=== PATIENT | male | born 1950 | race Caucasian/White ===

== ENCOUNTER → 2016-11-12 | Outpatient (CLI) | payer OTHER ==
[2016-11-12 14:39] LABS: HEMATOCRIT 43.5 % (42-52)
[2016-11-12 15:19] LABS: ALT/SGPT 37 U/L (12-78); AST/SGOT 9 U/L (15-37); BLOOD UREA NITROGEN 11 mg/dl (7-18); BUN/CREATININE RATIO 13.5 (10-20); CALCIUM 8.9 mg/dl (8.5-10.1); CARBON DIOXIDE 25 mmol/L (21-32); CHLORIDE 103 mmol/L (98-107); GLUCOSE 287 mg/dl (70-99); POTASSIUM 4.1 mmol/L (3.5-5.1); SODIUM 138 mmol/L (136-145)
[2016-11-12 15:30] LABS: ALB/GLOB RATIO 1.1 (0.9-2); ALKALINE PHOSPHATASE 80 U/L (45-117); CHOLESTEROL 136 mg/dl (0-200); CHOLESTEROL/HDL RATIO 4.7; HDL CHOLESTEROL 29 mg/dl; LDL CHOLESTEROL CALCULATED 83 mg/dl; TRIGLYCERIDES 120 mg/dl (0-150); VERY LOW DENSITY LIPOPROT CALC 24 mg/dl
[2016-11-13 06:34] LABS: ESTIMATED AVERAGE GLUCOSE 258 mg/dl; HA1C FLAG Normal (Normal)
== END | disposition home or self-care (01) ==
LOC: C.LAB1850 12:49
PROVIDERS: ATTEND Nurse Practitioner Family
DX: E11.49 Type 2 diabetes mellitus with other diabetic neurological complication (principal)

== ENCOUNTER → 2016-11-15 | Outpatient (CLI) | payer OTHER | END | disposition home or self-care (01) | LOC: C.LABSPEC 11:00 | PROVIDERS: ATTEND Nurse Practitioner Family | DX: E11.49 Type 2 diabetes mellitus with other diabetic neurological complication (principal) ==

== ENCOUNTER → 2017-07-11 | Outpatient (CLI) | payer OTHER ==
[2017-07-11 14:27] LABS: HEMATOCRIT 46.5 % (42-52); MEAN CELL VOLUME 89.6 fL (80-100); MEAN CORPUSCULAR HEMOGLOBIN 31.6 pg (25-34); MEAN CORPUSCULAR HGB CONC 35.3 g/dl (32-36); PLATELET COUNT 263 K/uL (130-400); RED BLOOD COUNT 5.19 M/uL (4.7-6.1); WHITE BLOOD COUNT 9.36 K/uL (4.8-10.8)
[2017-07-11 15:30] LABS: BASO ABS # 0.08 K/uL (0-0.2); BASOPHIL % 0.9 % (0-2); ECHINOCYTES 2+; EOSINOPHIL % 3.6 %; LYMPHOCYTE % 32.1 %; NEUTROPHILS % 29.5 %; OVALOCYTES 1+; VARIANT LYM ABS # 2.42 K/uL; VARIANT LYMPHOCYTE % 25.9 %
[2017-07-11 15:32] LABS: COMPLETE YES
== END | disposition home or self-care (01) ==
LOC: C.LAB1850 12:37
PROVIDERS: ATTEND Psychiatry & Neurology Psychiatry
DX: F20.9 Schizophrenia, unspecified (principal); D64.9 Anemia, unspecified

== ENCOUNTER 2019-06-02 12:30 | Observation (INO) ==
[2019-06-02] MEDS ORDERED: SODIUM CHLORIDE 0.9% 500 ML IV ONE (13:18)
[2019-06-02 13:38] LABS: Basophils # (auto) 0.01 K/uL (0-0.2); Basophils % (auto) 0.2 %; Eosinophils # (auto) 0.08 K/uL (0-0.5); Eosinophils % (auto) 1.6 %; Hemoglobin 12.8 g/dL (14.0-18.0); Immature Granulocytes # (auto) 0.02 K/uL (0.00-0.02); Immature Granulocytes % (auto) 0.4 %; Lymphocytes # (auto) 1.57 K/uL (1.2-3.4); Mean Corpuscular Hemoglobin 31.4 pg (25-34); Mean Corpuscular Hgb Conc 34.6 g/dL (32-36); Mean Corpuscular Volume 90.7 fL (80-100); Mean Platelet Volume 8.8 fL (7.4-10.4); Monocytes # (auto) 0.47 K/uL (0.11-0.59); Monocytes % (auto) 9.3 %; Neutrophils # (auto) 2.91 K/uL (1.4-6.5); Neutrophils % (auto) 57.5 %; Platelet Count 229 K/uL (130-400); RDW Standard Deviation 42.9 fL (36.4-46.3); Red Blood Count 4.08 M/uL (4.7-6.1); White Blood Count 5.06 K/uL (4.8-10.8)
--- NOTE | 2019-06-02 13:40 | XRay Report ---
XR chest 1V portable HISTORY: 69 years-old Male Chest Pain acute atypical chest pain COMPARISON: None available TECHNIQUE: Portable AP view of the chest FINDINGS: Cardiomediastinal and hilar silhouettes are within normal limits. Mild interstitial coarsening is mos t pronounced within the mid to lower lung zones. No pneumothorax, large pleural effusion or overt pul monary edema. Degenerative changes of the shoulders and spine. IMPRESSION: 1. Mild interstitial coarsening, most pronounced in the mid to lower lung zones. This may be on a chr onic basis or reflect interstitial pneumonitis or mild pulmonary edema. Correlate clinically. The above report was generated using voice recognition software. It may contain grammatical, syntax o r spelling errors. Electronically signed by: Geovany Brooks M.D. 06/02/2019 1:39 PM
[2019-06-02 13:56] LABS: Alanine Aminotransferase 11 U/L (12-78); Albumin Level 3.3 gm/dl (3.4-5.0); Aspartate Aminotransferase 8 U/L (15-37); BUN Creatinine Ratio 12.2 (10-20); Blood Urea Nitrogen 9 mg/dl (7-18); Carbon Dioxide 23 mmol/L (21-32); Chloride 99 mmol/L (98-107); Creatinine Clr Calc Pharmacy 92.7 ml/min; Est GFR (African American) 105.8; Est GFR (Non-African American) 91.3; Glucose 109 mg/dl (70-99); Lipase 104 U/L (73-393); Magnesium 1.7 mg/dl (1.8-2.4); Sodium 133 mmol/L (136-145)
[2019-06-02 13:58] LABS: Acetaminophen 3 ug/ml (10-30); Salicylate < 1.7 mg/dl (2.8-20); Valproic Acid 95 mcg/ml (50-100)
[2019-06-02 14:01] LABS: Alkaline Phosphatase 57 U/L (45-117); Bilirubin,Total 0.2 mg/dl (0.2-1); Globulin 3.4 gm/dl (2.5-4.0); Phosphorus 3.3 mg/dl (2.5-4.9); Total Protein 6.7 gm/dl (6.4-8.2); Troponin I < 0.015 ng/ml (0-0.045)
[2019-06-02] MEDS ORDERED: MAGNESIUM SULFATE / D5W 1 GM/100 ML BAG IV ONE (14:01)
[2019-06-02 14:08] LABS: INR 1.1 (0.9-1.1); Prothrombin Time 10.8 Seconds (9.0-12.0)
--- NOTE | 2019-06-02 14:37 | CT Scan Report ---
CT head/brain wo con CLINICAL HISTORY: Bilateral lower extremity weakness COMPARISON STUDY: No previous studies for comparison. TECHNIQUE: Axial CT of the brain is performed from the vertex to the skull base. IV contrast was not administered for this examination. A dose lowering technique was utilized adhering to the principles of ALARA. CT DOSE: 1074.96 mGy.cm FINDINGS: No intra or extra-axial mass lesions are visualized. There is no CT evidence of acute cortical infarc tion. There is no evidence of midline shift. There is no acute hemorrhage. No calvarial fractures ar e visualized. There are minor white matter hypodensities likely on a small vessel basis. There is mild ventricular dilatation, likely secondary to volume loss. There is no evidence of acute sinusitis IMPRESSION: No acute intracranial findings Electronically signed by: Juan Mantilla M.D. 06/02/2019 2:36 PM
[2019-06-02] MEDS ORDERED: SODIUM CHLORIDE 0.9% 1000ML 1,000 ML IV ONE (14:40)
--- NOTE | 2019-06-02 16:09 | History & Physical Report ---
Date of Service June 02, 2019 Assessment & Plan (1) Medication overdose: admit med surg Monitor electrolytes - magnesium replaced in ED overdosed by taking 2x his medications to relieve headache/neck ache - no longer experiencing this pain. (2) Lactic acidosis: Lactic acid 4.2 Gentle IV fluids - CXR with mild pulm edema vs pneumonitis, will monitor Hold metformin (3) Bipolar I disorder, single manic episode: Continue divalproex, olanzapine, paroxetine (4) Schizophrenia: as above (5) Diabetes mellitus type 2, uncontrolled, without complications: Hold metformine, continue glipizide (6) HTN (hypertension): continue lisinopril, ASA (7) DVT prophylaxis: SCDs History of Present Illness Mr. Wolfe presents today for medication overdose. He has been having neck and head pain for the last two or three weeks and for the last week decided to double all of his medications to treat it. A home health nurse came to see him today and discovered he was short a number of packets of medications. He is currently feeling well, without complaint. He reports that the neck and head pain that was bothering him is not currently causing him any pain. He denies any nausea, vomiting, aches, chills, or fevers. He does note that he feels like he has to urinate frequently. 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 Family: DMII, heart disease Primary Care Provider: Roly Mariscal MD Allergies Allergy/AdvReac Type Severity Reaction Status Date / Time No Known Drug Allergies Allergy Verified 06/02/19 13:43 Home Medications Home Medications Medication Instructions Recorded Confirmed Type albuterol sulfate 90 mcg/actuation 2 puffs INH Q6H PRN 04/01/19 06/02/19 History aerosol inhaler aspirin 81 mg tablet,delayed 81 mg PO QAM #90 tab 04/01/19 06/02/19 History release blood sugar diagnostic #10 ea 04/01/19 05/08/19 History cholecalciferol (vitamin D3) 1,000 1,000 units PO QAM #90 cap 04/01/19 06/02/19 History unit capsule cyanocobalamin (vitamin B-12) 1,000 mcg PO QAM #30 tab 04/01/19 06/02/19 History 1,000 mcg tablet divalproex 250 mg tablet,extended 250 mg PO BID tab 04/01/19 06/02/19 History release 24 hr divalproex 500 mg tablet,extended 500 mg PO BID tab 04/01/19 06/02/19 History release 24 hr fluticasone 250 mcg-salmeterol 50 1 puffs INH Q12H 04/01/19 06/02/19 History mcg/dose blistr powdr for inhalation lancets 33 gauge #100 ea 04/01/19 05/08/19 History lisinopril 5 mg tablet 5 mg PO QAM #30 tab 04/01/19 06/02/19 History metformin 1,000 mg tablet 1,000 mg PO BID #1 tab 04/01/19 06/02/19 History olanzapine 10 mg tablet 10 mg PO QAM tab 04/01/19 06/02/19 History olanzapine 15 mg tablet 15 mg PO HS tab 04/01/19 06/02/19 History paroxetine HCl 10 mg tablet 10 mg PO QAM tab 04/01/19 06/02/19 History vitamin B complex 1 tab PO QAM 04/01/19 06/02/19 History glipizide 5 mg tablet 5 mg PO BID #180 tab 04/06/19 06/02/19 History Past Med/Surg History Social History Preferred Language: Sami Communication Ability: Effective Visual Impairment: No Limitations Hearing Ability: Normal marital status: current occupational status: retired Feels Safe at Home: Yes Smoking Status: Never smoker Hx Alcohol Use: No Hx Substance Use: No Seatbelt Use: always Physical Exam Physical Exam: General: no distress Eyes: normal inspection, PERLL Neck: supple Respiratory: chest non tender, clear to auscultation, normal breath sounds, no respiratory distress, no accessory muscle use Cardiac: regular rate and rhythm, no rub or gallop, no murmur, no edema, no jvd GI/: active bowel sounds, no abd pain or tenderness, soft, non distended Extremities: normal range of motion, normal strength, non tender Neuro:oriented x 3, moves all extremities, CN II - XII intact, no drift Psych: alert, normal mood and affect Skin: normal color, dry Results & Data Vital Signs (Past 12 Hours) Vital Signs Temp Pulse Pulse Resp BP BP Pulse Ox 06/02/19 16:01 89 22 175/93 H 92 06/02/19 14:11 91 H 18 141/83 H 92 06/02/19 12:46 37.1 C 106 H 20 142/86 H 92 Supervising Physician Co-Signing Physician Notes I supervised Elba Barroso NP on this patient's care. I examined the patient today independently of her. I discussed the plan of care with her with the plan being as written in her note except for any following changes/exceptions: None. 69yo w/ hx of schizophrenia who took extra pills to help with pain. He reports no pain at this time and no shortness of breath. Reports his legs feel heavy at times and feels there might be fluid in them. Otherwise has no complaints. Reports no fevers/chills, chest pain, shortness of breath, abdominal pain, nausea, or vomiting. - Hold metformin - Gentle IV fluids - Monitor PG Care Time/CCT Total # of Minutes Spent Total Time Spent with Patient: Total time spent is greater than 50% in coordination of care (as documented) at patient's floor/unit and/or counseling patient:
[2019-06-02] MEDS ORDERED: SODIUM CHLORIDE 0.9% 1000ML 1,000 ML IV SCH (17:17)
[2019-06-02] MEDS ORDERED: ALBUTEROL HFA 8 GM INHALER INH PRN (17:46)
[2019-06-02] MEDS ORDERED: GLUCOSE 40% GEL 15 GM TUBE PO PRN (18:19)
[2019-06-02] MEDS ORDERED: CARBOHYDRATES FOR HYPOGLYCEMIA PO PRN (18:19)
[2019-06-02] MEDS ORDERED: GLUCAGON FOR INJ 1 MG VIAL SQ PRN (18:19)
[2019-06-02] MEDS ORDERED: GLUCOSE 10 TABS/TUBE PO PRN (18:19)
[2019-06-02] MEDS ORDERED: DEXTROSE 50% 50 ML SYRINGE IV PRN (18:19)
[2019-06-02] MEDS: INSULIN ASPART 100 UNITS/ML 3 ML PEN SC SCH (20:53)
[2019-06-02] MEDS: OLANZapine 5 MG TABLET PO SCH (20:55)
[2019-06-02] MEDS: FLUTICASONE/SALMETEROL 250/50 (ADVAIR) 14 PUFF/1 INHALER INH SCH (20:55)
[2019-06-02] MEDS: DIVALPROEX EXTENDED RELEASE 500 MG TAB PO SCH (20:56)
[2019-06-02] MEDS: DIVALPROEX EXTENDED RELEASE 250 MG TABCR PO SCH (20:56)
--- NOTE | 2019-06-02 22:04 | Emergency Department Note ---
Entered by Mera Sandoval acting as a scribe for Luis Fernando Dunn MD History of Present Illness General Chief complaint: Overdose (Intentional) Time Seen by Provider: 06/02/19 13:17 Source: patient History of Present Illness Onset (ago): week(s) 3 Location: head Pain Consistency: + other (episode) Quality: + other (overdose) Associated symptoms: + denies other symptoms (neck pain), + weakness and + other (feeling uncoordinated); no headaches The patient is a 69 year old male who presents to the Emergency Room with complaints of an episode of an overdose stating 3 weeks ago. The patient states that for 3 weeks he had a stinging pain in his head and neck. He states that he couldnt get rid of it so he took extra of all of his medications to see if it would help. He notes that he no longer has the pain, but has leg weakness and feels uncoordinated. He reports that he took extra of his psychiatric medications, including his Depakote, and his diabetic medications. He states that he only has one dose left. Home Medications Home Medications Medication Instructions Recorded Confirmed Type albuterol sulfate 90 mcg/actuation 2 puffs INH Q6H PRN 04/01/19 06/02/19 History aerosol inhaler aspirin 81 mg tablet,delayed 81 mg PO QAM #90 tab 04/01/19 06/02/19 History release blood sugar diagnostic #10 ea 04/01/19 05/08/19 History cholecalciferol (vitamin D3) 1,000 1,000 units PO QAM #90 cap 04/01/19 06/02/19 History unit capsule cyanocobalamin (vitamin B-12) 1,000 mcg PO QAM #30 tab 04/01/19 06/02/19 History 1,000 mcg tablet divalproex 250 mg tablet,extended 250 mg PO BID tab 04/01/19 06/02/19 History release 24 hr divalproex 500 mg tablet,extended 500 mg PO BID tab 04/01/19 06/02/19 History release 24 hr fluticasone 250 mcg-salmeterol 50 1 puffs INH Q12H 04/01/19 06/02/19 History mcg/dose blistr powdr for inhalation lancets 33 gauge #100 ea 04/01/19 05/08/19 History lisinopril 5 mg tablet 5 mg PO QAM #30 tab 04/01/19 06/02/19 History metformin 1,000 mg tablet 1,000 mg PO BID #1 tab 04/01/19 06/02/19 History olanzapine 10 mg tablet 10 mg PO QAM tab 04/01/19 06/02/19 History olanzapine 15 mg tablet 15 mg PO HS tab 04/01/19 06/02/19 History paroxetine HCl 10 mg tablet 10 mg PO QAM tab 04/01/19 06/02/19 History vitamin B complex 1 tab PO QAM 04/01/19 06/02/19 History glipizide 5 mg tablet 5 mg PO BID #180 tab 04/06/19 06/02/19 History Allergies Allergy/AdvReac Type Severity Reaction Status Date / Time No Known Drug Allergies Allergy Verified 06/02/19 13:43 Past Med/Surg History Medical History Bipolar I disorder, single manic episode Diabetes mellitus type 2, uncontrolled, without complications Dyslipidemia HTN (hypertension) Schizophrenia Surgical History S/P tonsillectomy and adenoidectomy Family History Mother Lung cancer Social History Preferred Language: Cameroonian Communication Ability: Effective Visual Impairment: No Limitations Hearing Ability: Normal Beliefs That Will Affect Care: None marital status: Current Living Situation: Alone current occupational status: retired Other Information That Helps Us Care for You: No Feels Safe at Home: Yes Safety Concerns: Feels Safe At This Time Smoking Status: Never smoker Hx Alcohol Use: No Hx Substance Use: No Seatbelt Use: always Review of Systems See HPI for pertinent positives & negatives. and A total of 10 systems reviewed and were otherwise negative Physical Exam Vital Signs Vital Signs - 24 hr 06/02/19 12:46 06/02/19 14:11 06/02/19 16:01 Temperature 37.1 C Temperature Source Oral Pulse Rate 106 H Pulse Rate [Left Finger] 91 H 89 Respiratory Rate 20 18 22 Respiratory Effort / Characteristics Non-Labored Spontaneous Blood Pressure 142/86 H Blood Pressure [Left Arm] 141/83 H 175/93 H Blood Pressure Mean 104 Blood Pressure Mean [Left Arm] 102 120 Blood Pressure Position [Left Arm] Lying Pulse Oximetry 92 92 92 Oxygen Delivery Method Room Air Room Air Sepsis Recent Fever Within 48 Hours No Sepsis New/Unexplained Change in Mental Status No Sepsis Action Taken by Nursing No Action Required GENERAL: Awake, alert, pleasantly confused, well-appearing, in no distress HENT: Normocephalic, atraumatic. Oropharynx with dry mucous membranes and otherwise unremarkable. EYES: Normal conjunctiva. Sclera non-icteric. EOMI. No nystamgus. PEARRL. NECK: Supple. No nuchal rigidity. FROM. No JVD. RESPIRATORY: Clear to auscultation bilaterally. CARDIAC: Regular rate, normal rhythm. Extremities warm and well perfused. Pulses equal. ABDOMEN: Soft, non-distended. No tenderness to palpation. No rebound or guarding. No masses. RECTAL: Deferred. MUSCULOSKELETAL: Chest examination reveals no tenderness. The back is symmetrical on inspection without obvious abnormality. There is no CVA tenderness to palpation. No joint edema. LOWER EXTREMITIES: Calves are equal size bilaterally and non-tender. No edema. No discoloration. NEURO: Pleasantly confused. No sensory or motor deficits noted. Cerebellar function intact, including finger to nose, alternating palms, heel to dale. 5/5 strength and SILT x4 extremities. Normal reflexes. No clonus. SKIN: No rash or jaundice noted. Course Course 1356: The patient was evaluated in room A11A. A complete history and physical exam was performed. 1446: The patient has pre-packaged blister packs to manage his medications. He gets his medications every 2 weeks for 2 weeks, so one a week. He has been taking double doses of his medications for the past 10 days for his headache. His visiting nurse noticed that he had went through an entire week's pack early in the past 10 days, in addition to being approximately 2 rows early on his other pack. 1506: I reevaluated the patient and updated him on his test results. I discussed the treatment plan with him. He verbally agrees and understands. 1508: I discussed the patient's case with Dr. Pope- [facility]. He will evaluate the patient for further management. Administered Medications Divalproex Sodium (Depakote Extended Release) 250 mg PO BID BOGDAN Stop: 07/02/19 20:59 Last Admin: 06/02/19 20:56 Dose: 250 mg Documented by: [id number] Divalproex Sodium (Depakote Extended Release) 500 mg PO BID BOGDAN Stop: 07/02/19 20:59 Last Admin: 06/02/19 20:56 Dose: 500 mg Documented by: [id number] Sodium Chloride (Nss 1000ml) 1,000 mls @ 80 mls/hr IV .[id number] BOGDAN Stop: 06/03/19 05:46 Last Admin: 06/02/19 18:05 Dose: 80 mls/hr Documented by: [id number] Insulin Aspart (Novolog Flexpen) 0 units SC ACHS BOGDAN Stop: 07/02/19 20:59 Last Admin: 06/02/19 20:53 Dose: 1 units Documented by: [id number] Cosigned by: [id number] Olanzapine (Zyprexa) 15 mg PO HS BOGDAN Stop: 07/02/19 20:59 Last Admin: 06/02/19 20:55 Dose: 15 mg Documented by: [id number] Fluticasone/Salmeterol (Advair Diskus 250/50) 1 puffs INH Q12H BOGDAN Stop: 07/02/19 20:59 Last Admin: 06/02/19 20:55 Dose: 1 puffs Documented by: [id number] Discontinued Medications Sodium Chloride (Nss) 500 mls @ 999 mls/hr IV .Q31M ONE Stop: 06/02/19 13:48 Last Infusion: 06/02/19 14:39 Dose: 0 mls/hr Documented by: [id number] Admin: 06/02/19 14:09 Dose: 999 mls/hr Documented by: [id number] Magnesium Sulfate/Dextrose (Magnesium Sulfate / D5w) 1 gm in 100 mls @ 100 mls/hr IV ONE ONE Stop: 06/02/19 15:00 Last Infusion: 06/02/19 15:43 Dose: 0 mls/hr Documented by: [id number] Admin: 06/02/19 14:37 Dose: 100 mls/hr Documented by: [id number] Sodium Chloride (Nss 1000ml) 1,000 mls @ 999 mls/hr IV .Q1H1M ONE Stop: 06/02/19 15:40 Last Infusion: 06/02/19 16:01 Dose: 0 mls/hr Documented by: [id number] Admin: 06/02/19 14:47 Dose: 999 mls/hr Documented by: [id number] Impression & Plan Elevated lactic acid level, Overdose, Dehydration, Schizophrenia Medical Decision Making Differential Diagnosis Differential diagnosis: Etiologies such as toxicological process, infection, hypoglycemia, electrolyte abnormalities, cardiac sources, intracerebral event, neurologic process, as well as others were entertained. Medical Records Attestation: I reviewed the patient's medical records. Home Medications Current Medication List: was personally reviewed by me Laboratory Data Attestation: I reviewed the patient's lab results. Result diagrams: 06/02/19 13:29 06/02/19 13:29 Lab Results 06/02/19 06/02/19 06/02/19 Range/Units 13:29 13:29 13:29 WBC 5.06 (4.8-10.8) K/uL RBC 4.08 L (4.7-6.1) M/uL Hgb 12.8 L (14.0-18.0) g/dL Hct 37.0 L (42-52) % MCV 90.7 (80-100) fL MCH 31.4 (25-34) pg MCHC 34.6 (32-36) g/dL RDW Std Deviation 42.9 (36.4-46.3) fL RDW Coeff of Gabbi 13.0 (11.5-14.5) % Plt Count 229 (130-400) K/uL MPV 8.8 (7.4-10.4) fL Immature Gran % (Auto) 0.4 % Neut % (Auto) 57.5 % Lymph % (Auto) 31.0 % Sevier % (Auto) 9.3 % Eos % (Auto) 1.6 % Baso % (Auto) 0.2 % Immature Gran # (Auto) 0.02 (0.00-0.02) K/uL Neut # (Auto) 2.91 (1.4-6.5) K/uL Lymph # (Auto) 1.57 (1.2-3.4) K/uL Sevier # (Auto) 0.47 (0.11-0.59) K/uL Eos # (Auto) 0.08 (0-0.5) K/uL Baso # (Auto) 0.01 (0-0.2) K/uL PT (9.0-12.0) Seconds INR (0.9-1.1) Sodium 133 L (136-145) mmol/L Potassium 4.0 (3.5-5.1) mmol/L Chloride 99 (98-107) mmol/L Carbon Dioxide 23 (21-32) mmol/L Anion Gap 11.0 (3-11) BUN 9 (7-18) mg/dl Creatinine 0.77 (0.6-1.4) mg/dl Est Cr Clr Drug Dosing 92.7 ml/min Est GFR ( Amer) 105.8 Est GFR (Non-Af Amer) 91.3 BUN/Creatinine Ratio 12.2 (10-20) Glucose 109 H (70-99) mg/dl Lactate (0.4-2.0) mmol/L Calcium 9.0 (8.5-10.1) mg/dl Phosphorus 3.3 (2.5-4.9) mg/dl Magnesium 1.7 L (1.8-2.4) mg/dl Total Bilirubin 0.2 (0.2-1) mg/dl AST 8 L (15-37) U/L ALT 11 L (12-78) U/L Alkaline Phosphatase 57 (45-117) U/L Troponin I < 0.015 (0-0.045) ng/ml Total Protein 6.7 (6.4-8.2) gm/dl Albumin 3.3 L (3.4-5.0) gm/dl Globulin 3.4 (2.5-4.0) gm/dl Albumin/Globulin Ratio 1.0 (0.9-2) Lipase 104 (73-393) U/L Salicylates < 1.7 L (2.8-20) mg/dl Acetaminophen 3 L (10-30) ug/ml Valproic Acid 95 (50-100) mcg/ml 06/02/19 06/02/19 Range/Units 13:29 13:29 WBC (4.8-10.8) K/uL RBC (4.7-6.1) M/uL Hgb (14.0-18.0) g/dL Hct (42-52) % MCV (80-100) fL MCH (25-34) pg MCHC (32-36) g/dL RDW Std Deviation (36.4-46.3) fL RDW Coeff of Gabbi (11.5-14.5) % Plt Count (130-400) K/uL MPV (7.4-10.4) fL Immature Gran % (Auto) % Neut % (Auto) % Lymph % (Auto) % Sevier % (Auto) % Eos % (Auto) % Baso % (Auto) % Immature Gran # (Auto) (0.00-0.02) K/uL Neut # (Auto) (1.4-6.5) K/uL Lymph # (Auto) (1.2-3.4) K/uL Sevier # (Auto) (0.11-0.59) K/uL Eos # (Auto) (0-0.5) K/uL Baso # (Auto) (0-0.2) K/uL PT 10.8 (9.0-12.0) Seconds INR 1.1 (0.9-1.1) Sodium (136-145) mmol/L Potassium (3.5-5.1) mmol/L Chloride (98-107) mmol/L Carbon Dioxide (21-32) mmol/L Anion Gap (3-11) BUN (7-18) mg/dl Creatinine (0.6-1.4) mg/dl Est Cr Clr Drug Dosing ml/min Est GFR ( Amer) Est GFR (Non-Af Amer) BUN/Creatinine Ratio (10-20) Glucose (70-99) mg/dl Lactate 4.2 H* (0.4-2.0) mmol/L Calcium (8.5-10.1) mg/dl Phosphorus (2.5-4.9) mg/dl Magnesium (1.8-2.4) mg/dl Total Bilirubin (0.2-1) mg/dl AST (15-37) U/L ALT (12-78) U/L Alkaline Phosphatase (45-117) U/L Troponin I (0-0.045) ng/ml Total Protein (6.4-8.2) gm/dl Albumin (3.4-5.0) gm/dl Globulin (2.5-4.0) gm/dl Albumin/Globulin Ratio (0.9-2) Lipase (73-393) U/L Salicylates (2.8-20) mg/dl Acetaminophen (10-30) ug/ml Valproic Acid (50-100) mcg/ml Imaging Data Radiologist's Impression: Radiology results as stated below per my review and the radiologist's interpretation: XR chest 1V portable HISTORY: 69 years-old Male Chest Pain acute atypical chest pain COMPARISON: None available TECHNIQUE: Portable AP view of the chest FINDINGS: Cardiomediastinal and hilar silhouettes are within normal limits. Mild interstitial coarsening is most pronounced within the mid to lower lung zones. No pneumothorax, large pleural effusion or overt pulmonary edema. Degenerative changes of the shoulders and spine. IMPRESSION: 1. Mild interstitial coarsening, most pronounced in the mid to lower lung zones. This may be on a chronic basis or reflect interstitial pneumonitis or mild pulmonary edema. Correlate clinically. The above report was generated using voice recognition software. It may contain grammatical, syntax or spelling errors. Electronically signed by: Geovany Brooks M.D. 06/02/2019 1:[address] head/brain wo con CLINICAL HISTORY: Bilateral lower extremity weakness COMPARISON STUDY: No previous studies for comparison. TECHNIQUE: Axial CT of the brain is performed from the vertex to the skull base. IV contrast was not administered for this examination. A dose lowering technique was utilized adhering to the principles of ALARA. CT DOSE: 1074.96 mGy.cm FINDINGS: No intra or extra-axial mass lesions are visualized. There is no CT evidence of acute cortical infarction. There is no evidence of midline shift. There is no acute hemorrhage. No calvarial fractures are visualized. There are minor white matter hypodensities likely on a small vessel basis. There is mild ventricular dilatation, likely secondary to volume loss. There is no evidence of acute sinusitis IMPRESSION: No acute intracranial findings Electronically signed by: Juan Mantilla M.D. 06/02/2019 2:36 PM ECG Data Attestation: I personally reviewed and interpreted this ECG as follows: Indication: + toxicologic Rate (beats per minute): 98 Rhythm: + normal sinus ECG Intervals/blocks: + Left anterior fascicular block ECG ST segments: no ST elevation ECG Findings: + Other (QRS 120, QT-c 459); no PACs and no PVCs Comparison ECG Date: no prior available Blood Pressure Blood Pressure Findings: Elevated blood pressure Blood Pressure Disposition: further management by hospitalist [facility] Narrative The patient is a pleasant 69-year-old gentleman with a past medical history of schizophrenia who presents emergency department after home nursing became concerned realizing the patient had been intentionally taking extra doses of his prescribed medications where he completed over an entire week's worth of blister packs one week early where the patient reports he did this to treat a headache which he says is now resolved per HPI. The patient has poor insight into how these his medications work and is under the impression that he was going to get better by taking extra metformin in addition to his other medications. On arrival patient is in no acute distress, afebrile stable vital signs. He is neurologically intact. He does complain of generalized weakness however. EKG with LAFB without overt acute ischemia, without prior for comparison. Chest x- ray negative for acute process. CT head negative. WBC and platelets wnl. H/H 12.8/37 without recent for comparison but decrased from September. Lactate elevated at 4.2 likely related to the patient's excessive metformin use over the past 10 days. However, Chemistry without acidosis. Magnesium 1.7 with repletion provided. LFTs and electrolytes unremarkable. Troponin negative. Thus, reasonable to admit the patient for IV fluid hydration and further monitoring. Patient is agreeable with this plan. Case was discussed with Dr. Pope, [facility] [place], who evaluate the patient for admission. Discharge Plan Visit Data *Final* Discharge Date/Time: 06/02/19 16:35 Chief Complaint: Overdose (Intentional) ED Provider: Luis Fernando Dunn Discharge Problem: Elevated lactic acid level, Overdose, Dehydration, Schizophrenia Patient Disposition: Being Evaluated by Hospitalist Discharge Instructions Interventions: ED Discharge Assessment Last Done: 06/02/19 16:35 Discharge Problem: Overdose Qualifiers: Encounter type: initial encounter Injury intent: undetermined intent Qualified Code(s): T50.904A - Poisoning by unspecified drugs, medicaments and biological substances, undetermined, initial encounter The scribe's documentation has been prepared under my direction and personally reviewed by me in its entirety. I confirm that the note above accurately reflects all work, treatment, procedures, and medical decision making performed by me.
[2019-06-03] MEDS: FLUTICASONE/SALMETEROL 250/50 (ADVAIR) 14 PUFF/1 INHALER INH SCH ×2 (07:53→20:46)
[2019-06-03] MEDS: OLANZapine 10 MG TAB PO SCH (07:54)
[2019-06-03] MEDS: PARoxetine HCl 10 MG TAB PO SCH (07:54)
[2019-06-03] MEDS: glipiZIDE 5 MG TAB PO SCH ×2 (07:54→17:36)
[2019-06-03] MEDS: ASPIRIN 81 MG ECTAB PO SCH (07:54)
[2019-06-03] MEDS: VITAMIN B COMPLEX TAB PO SCH (07:54)
[2019-06-03] MEDS: LISINOPRIL 5 MG TAB PO SCH (07:54)
[2019-06-03] MEDS: DIVALPROEX EXTENDED RELEASE 500 MG TAB PO SCH ×2 (07:54→20:47)
[2019-06-03] MEDS: CYANOCOBALAMIN 500 MCG TABLET (VITAMIN B-12) PO SCH (07:54)
[2019-06-03] MEDS: DIVALPROEX EXTENDED RELEASE 250 MG TABCR PO SCH ×2 (07:54→20:47)
[2019-06-03] MEDS: CHOLECALCIFEROL 1,000 UNITS TAB PO SCH (07:54)
[2019-06-03] MEDS: INSULIN ASPART 100 UNITS/ML 3 ML PEN SC SCH ×4 (08:16→20:47)
[2019-06-03 08:50] LABS: Basophils # (auto) 0.01 K/uL (0-0.2); Basophils % (auto) 0.2 %; Eosinophils # (auto) 0.09 K/uL (0-0.5); Eosinophils % (auto) 1.4 %; Hematocrit (blood only) 39.1 % (42-52); Hemoglobin 13.4 g/dL (14.0-18.0); Immature Granulocytes # (auto) 0.02 K/uL (0.00-0.02); Immature Granulocytes % (auto) 0.3 %; Lymphocytes # (auto) 1.81 K/uL (1.2-3.4); Mean Corpuscular Hemoglobin 31.4 pg (25-34); Mean Corpuscular Hgb Conc 34.3 g/dL (32-36); Mean Corpuscular Volume 91.6 fL (80-100); Monocytes # (auto) 0.55 K/uL (0.11-0.59); Monocytes % (auto) 8.8 %; Neutrophils # (auto) 3.77 K/uL (1.4-6.5); Neutrophils % (auto) 60.3 %; Platelet Count 233 K/uL (130-400); RDW Coefficient of Variation 13.3 % (11.5-14.5); RDW Standard Deviation 44.1 fL (36.4-46.3); Red Blood Count 4.27 M/uL (4.7-6.1); White Blood Count 6.25 K/uL (4.8-10.8)
[2019-06-03 09:22] LABS: Albumin Level 3.5 gm/dl (3.4-5.0); BUN Creatinine Ratio 10.1 (10-20); Calcium 9.1 mg/dl (8.5-10.1); Creatinine Clr Calc Pharmacy 104.5 ml/min; Est GFR (Non-African American) 96.7
[2019-06-03 09:24] LABS: Albumin Globulin Ratio 0.9 (0.9-2); Bilirubin,Total 0.2 mg/dl (0.2-1); Globulin 3.8 gm/dl (2.5-4.0); Total Protein 7.3 gm/dl (6.4-8.2)
--- NOTE | 2019-06-03 11:48 | XRay Report ---
XR cervical spine 2 or 3V CLINICAL HISTORY: neck pain COMPARISON STUDY: None. FINDINGS: Straightening of the cervical spine. The cervical spine is visualized from C1 through the s uperior endplate of T1. Alignment is intact. Mild disc space narrowing at C4-C5 and C5-C6. Moderate f acet degenerative changes throughout the cervical spine. Prevertebral soft tissues and the C1-C2 inte rval are intact. No fracture or subluxation. IMPRESSION: No fractures within the cervical spine. Degenerative changes as described above. Electronically signed by: Yakov Mcgraw M.D. 06/03/2019 11:47 AM
[2019-06-03] MEDS: ACETAMINOPHEN 500 MG TAB PO SCH ×2 (15:29→23:03)
[2019-06-03] MEDS: LIDOCAINE 5% 1 PATCH TD SCH (15:30)
--- NOTE | 2019-06-03 15:56 | Hospitalist Progress Note ---
Date of Service June 03, 2019 Assessment & Plan (1) Medication overdose: admit med surg Monitor electrolytes - magnesium replaced in ED overdosed by taking 2x his medications to relieve headache/neck ache - pain is better and intermittent - will prescribe acetaminophen and lidoderm patch (2) Neck pain: Cervical film with no acute fracture - degenerative changes Pain medication as above (3) Lactic acidosis: Lactic acid 4.2 and trended down Gentle IV fluids x1 liter - CXR with mild pulm edema vs pneumonitis, will monitor Hold metformin (4) Bipolar I disorder, single manic episode: Continue divalproex, olanzapine, paroxetine (5) Schizophrenia: as above (6) Diabetes mellitus type 2, uncontrolled, without complications: Hold metformine, continue glipizide, ss (7) HTN (hypertension): continue lisinopril, ASA (8) DVT prophylaxis: SCDs Dispo: PT/OT with patient at baseline - will set up HH and plan for dc tomorrow. Subjective Mr. Jameson has intermittent right neck pain that is better today than over the last couple of days. ROS Constitutional: no chills, aches, sweats or fever Respiratory: no sob,cough, sputum, or wheezing Cardiac: no chest pain, palpitations, edema, orthopnea or lightheadedness GI: no abdominal pain, nausea, vomiting, diarrhea or constipation : no dysuria or hesitancy Extremities: no joint pain or weakness Skin: no rash All other systems reviewed and negative Physical Exam Physical Exam: General: no distress Eyes: normal inspection, PERLL Respiratory: chest non tender, clear to auscultation, normal breath sounds, no respiratory distress, no accessory muscle use Cardiac: regular rate and rhythm, no rub or gallop, no murmur, no edema, no jvd GI/: active bowel sounds, no abd pain or tenderness, soft, non distended Extremities: normal range of motion, normal strength, non tender Neuro/Psych: alert and oriented x 3, normal mood and affect Skin: normal color, dry Results & Data Vital Signs (Past 12 Hours) Vital Signs Temp Pulse Resp BP BP Pulse Ox 06/03/19 15:22 36.3 C L 81 18 152/81 H 97 06/03/19 07:30 36.6 C 79 20 158/77 H 92 PG Care Time/CCT Total # of Minutes Spent Total Time Spent with Patient: Total time spent is greater than 50% in coordination of care (as documented) at patient's floor/unit and/or counseling patient:
[2019-06-03] MEDS: OLANZapine 5 MG TABLET PO SCH (20:48)
[2019-06-04] MEDS: LISINOPRIL 5 MG TAB PO SCH (07:59)
[2019-06-04] MEDS: OLANZapine 10 MG TAB PO SCH (07:59)
[2019-06-04] MEDS: LIDOCAINE 5% 1 PATCH TD SCH (07:59)
[2019-06-04] MEDS: FLUTICASONE/SALMETEROL 250/50 (ADVAIR) 14 PUFF/1 INHALER INH SCH (07:59)
[2019-06-04] MEDS: CYANOCOBALAMIN 500 MCG TABLET (VITAMIN B-12) PO SCH (08:00)
[2019-06-04] MEDS: ACETAMINOPHEN 500 MG TAB PO SCH (08:00)
[2019-06-04] MEDS: DIVALPROEX EXTENDED RELEASE 250 MG TABCR PO SCH (08:00)
[2019-06-04] MEDS: PARoxetine HCl 10 MG TAB PO SCH (08:00)
[2019-06-04] MEDS: ASPIRIN 81 MG ECTAB PO SCH (08:00)
[2019-06-04] MEDS: DIVALPROEX EXTENDED RELEASE 500 MG TAB PO SCH (08:00)
[2019-06-04] MEDS: glipiZIDE 5 MG TAB PO SCH (08:00)
[2019-06-04] MEDS: VITAMIN B COMPLEX TAB PO SCH (08:00)
[2019-06-04] MEDS: CHOLECALCIFEROL 1,000 UNITS TAB PO SCH (08:00)
[2019-06-04] MEDS: INSULIN ASPART 100 UNITS/ML 3 ML PEN SC SCH (08:42)
--- NOTE | 2019-06-04 09:05 | Discharge Summary ---
Date of Service June 04, 2019 Admission HPI Per Admitting Provider Mr. Wolfe presents today for medication overdose. He has been having neck and head pain for the last two or three weeks and for the last week decided to double all of his medications to treat it. A home health nurse came to see him today and discovered he was short a number of packets of medications. He is currently feeling well, without complaint. He reports that the neck and head pain that was bothering him is not currently causing him any pain. He denies any nausea, vomiting, aches, chills, or fevers. He does note that he feels like he has to urinate frequently. 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 1ppd Family: DMII, heart disease Primary Care Provider: Roly Mariscal MD Principal Diagnosis Medication overdose, lactic acidosis Discharge Exam Constitutional WD/WN, vitals as above Respiratory normal respiratory effort, lungs clear to auscultation Cardiovascular RRR, no murmur, no edema Gastrointestinal (Abdomen) normal bowel sounds, soft, nontender, no hepatosplenomegaly Musculoskeletal no cyanosis or clubbing, extremities motor strength 5/5 Skin no rashes, warm and dry Neurologic moves all extremities and awake Psychiatric A+Ox3, euthymic affect Discharge Data Allergies Allergy/AdvReac Type Severity Reaction Status Date / Time No Known Drug Allergies Allergy Verified 06/02/19 13:43 Consultations 06/02/19 14:49 ED Decision to Admit Stat 06/02/19 17:17 Consult Case Management - Discharge Planning Routine Ordered Studies 06/02/19 14:00 CT head/brain wo con Stat Hospital Course (1) Medication overdose: admit med surg Monitor electrolytes - magnesium replaced in ED overdosed by taking 2x his medications to relieve headache/neck ache - pain improved with acetaminophen and lidoderm patch (2) Neck pain: Cervical film with no acute fracture - degenerative changes Pain medication as above (3) Lactic acidosis: Lactic acid 4.2 and trended down Gentle IV fluids x1 liter - CXR with mild pulm edema vs pneumonitis - no adventitious lung sounds today, no fevers, no cough Hold metformin until seen by pcp and can discuss (4) Bipolar I disorder, single manic episode: Continue divalproex, olanzapine, paroxetine (5) Schizophrenia: as above (6) Diabetes mellitus type 2, uncontrolled, without complications: Hold metformin, continue glipizide, ss Hold metformin until seen by pcp (7) HTN (hypertension): continue lisinopril, ASA (8) DVT prophylaxis: SCDs Dispo: PT/OT with patient at baseline - home with Total Time Total Time Spent Total Time Spent (In Minutes): greater than 30 minutes Discharge Plan Discharge Items Patient Disposition: Home - Home Health Services Reason For Visit: MEDICATION OVERDOSE Discharge Diagnosis: Medication overdose Activity: Resume your previous activity Non-emergency contact: Primary Care Provider Call non-emergency contact if: you have any medication questions Follow-up/Referrals: Roly Mariscal MD [Primary Care Provider] - 06/09/19 1:30 pm (Please, follow up at Dr. Mariscal's office with his associate, Karolina Cruz PA-C, on SaturdayJune 09 at 1:30 pm. *If you need to change this appointment, call the office at [phone].) Diet: Carb Consistent or DM2 Addtl Attending Provider Instructions: Medication overdose: You were admitted to the hospital because your blood work showed that you had lactic acidosis, likely because of taking too much medication, specifically metformin. Please be sure to take your medications exactly as prescribed Neck pain: Your neck Xray did not show any fracture, it did show degenerative changes (arthritis) You can continue to take acetaminophen (Tylenol) 1000 mg every 8 hours and use over the counter Lidoderm patches on your neck. Do not take more than 3000 mg of Tylenol in 24 hours Diabetes mellitus type 2 Continue your glipizide but hold your metformin until you can discuss whether or not to resume it with your primary care provider Pending Studies at Discharge: No Stand-Alone Forms: My [facility] [employer], Smoking Cessation, Suicide Prevention Resources Medications and DC Order Prescriptions: New acetaminophen [Tylenol Extra Strength] 500 mg Tablet 1,000 mg PO Q8H Qty: 30 RF: 0 Continued fluticasone propion-salmeterol [Advair Diskus] 250-50 mcg/dose blister with device 1 puffs INH Q12H RF: 0 aspirin 81 mg tablet,delayed release (DR/EC) 81 mg PO QAM Qty: 90 RF: 0 cholecalciferol (vitamin D3) 1,000 unit capsule 1,000 units PO QAM Qty: 90 RF: 0 divalproex 250 mg tablet extended release 24 hr 250 mg PO BID RF: 0 divalproex 500 mg tablet extended release 24 hr 500 mg PO BID RF: 0 lisinopril 5 mg tablet 5 mg PO QAM Qty: 30 RF: 0 olanzapine 10 mg tablet 10 mg PO QAM RF: 0 olanzapine 15 mg tablet 15 mg PO HS RF: 0 (DME) lancets [OneTouch Delica Lancets] 33 gauge misc See Dose Instructions .ROUTE .MEDSUPPLY Qty: 100 RF: 0 (DME) OneTouch Ultra Blue Test Strip strip See Dose Instructions .ROUTE .MEDSUPPLY Qty: 10 RF: 0 paroxetine HCl 10 mg tablet 10 mg PO QAM RF: 0 albuterol sulfate [ProAir HFA] 90 mcg/actuation HFA aerosol inhaler 2 puffs INH Q6H PRN (Reason: Shortness Of Breath) RF: 0 vitamin B complex [B Complex-Vitamin B12] tablet 1 tab PO QAM RF: 0 cyanocobalamin (vitamin B-12) 1,000 mcg tablet 1,000 mcg PO QAM Qty: 30 RF: 0 glipizide 5 mg tablet 5 mg PO BID Qty: 180 RF: 0 Discontinued metformin 1,000 mg tablet 1,000 mg PO BID Qty: 1 RF: 0 Discharge Orders: Discharge Order (Routine); Ordered 06/04/19 Ordered By: Elba Barroso Admission Data Admit Date/Time: 06/02/19 16:10 Attending Provider: Matthias Holliday Admit Provider: Matthias Holliday Primary Care Provider: Roly Mariscal Other Providers: Madhav Pope
== END 2019-06-04 10:05 | disposition home health service (06) ==
LOC: 4W 12:30 → ED 12:30 → 4W 16:35

== ENCOUNTER 2019-07-13 14:16 | Inpatient (IN) ==
--- NOTE | 2019-07-13 15:35 | XRay Report ---
XR clavicle 2 view LT, XR chest 1V portable HISTORY: 69 years-old Male fall, left clavicle fracture acute left shoulder pain status post fall COMPARISON: Left clavicle radiographs 07/01/2019 TECHNIQUE: 2 views of the left clavicle with AP view of the chest FINDINGS: CLAVICLE: Fracture of the distal left clavicle with comminution and displacement is redemonstrated. Fracture fr agments are displaced several millimeters. The proximal clavicles displaced superiorly in relation to the distal clavicle approximately 13 mm. There is no significant change from the 07/01/2019 exam. Mi ld adjacent soft tissue swelling. Glenohumeral joint appears intact. CHEST: Calcified plaque of the thoracic aortic arch. Cardiac mediastinal and hilar silhouettes are within no rmal limits. Mild bibasilar atelectasis with background emphysema. There is no pneumothorax, large pl eural effusion or overt pulmonary edema. Degenerative changes of the shoulders and spine. IMPRESSION: 1. No acute cardiopulmonary abnormality. 2. Acute comminuted and displaced fracture of the distal left clavicle redemonstrated. ACT 112: Negative or not required by law. The above report was generated using voice recognition software. It may contain grammatical, syntax o r spelling errors. Electronically signed by: Geovany Brooks M.D. 07/13/2019 3:33 PM
[2019-07-13 16:10] LABS: Basophils # (auto) 0.01 K/uL (0-0.2); Basophils % (auto) 0.2 %; Eosinophils # (auto) 0.15 K/uL (0-0.5); Eosinophils % (auto) 2.9 %; Hematocrit (blood only) 40.9 % (42-52); Hemoglobin 13.9 g/dL (14.0-18.0); Immature Granulocytes # (auto) 0.01 K/uL (0.00-0.02); Immature Granulocytes % (auto) 0.2 %; Lymphocytes # (auto) 2.11 K/uL (1.2-3.4); Lymphocytes % (auto) 40.7 %; Mean Corpuscular Hemoglobin 31.8 pg (25-34); Mean Corpuscular Volume 93.6 fL (80-100); Mean Platelet Volume 8.5 fL (7.4-10.4); Monocytes # (auto) 0.58 K/uL (0.11-0.59); Monocytes % (auto) 11.2 %; Neutrophils # (auto) 2.32 K/uL (1.4-6.5); Neutrophils % (auto) 44.8 %; Platelet Count 285 K/uL (130-400); RDW Standard Deviation 44.8 fL (36.4-46.3); Red Blood Count 4.37 M/uL (4.7-6.1); White Blood Count 5.18 K/uL (4.8-10.8)
--- NOTE | 2019-07-13 16:22 | CT Scan Report ---
CT head/brain wo con CLINICAL HISTORY: Falls COMPARISON STUDY: 06/22/2019 TECHNIQUE: Axial CT of the brain is performed from the vertex to the skull base. IV contrast was not administered for this examination. A dose lowering technique was utilized adhering to the principles of ALARA. CT DOSE: 537.48 mGy.cm FINDINGS: No intra or extra-axial mass lesions are visualized. There is no CT evidence of acute cortical infarc tion. There is no evidence of midline shift. There is no acute hemorrhage. No calvarial fractures ar e visualized. There are patchy white matter hypodensities likely on a small vessel basis. There is mild ventricular dilatation, unchanged from the prior study, and felt to be secondary to vol ume loss. There is no evidence of acute sinusitis IMPRESSION: No acute intracranial findings ACT 112: Negative or not required by law. Electronically signed by: Juan Mantilla M.D. 07/13/2019 4:21 PM
[2019-07-13 16:26] LABS: INR 1.1 (0.9-1.1); Prothrombin Time 10.9 Seconds (9.0-12.0)
[2019-07-13 16:27] LABS: Blood Urea Nitrogen 6 mg/dl (7-18); Calcium 9.2 mg/dl (8.5-10.1); Carbon Dioxide 28 mmol/L (21-32); Chloride 106 mmol/L (98-107); Creatinine Clr Calc Pharmacy 86.5 ml/min; Est GFR (African American) 103.6; Est GFR (Non-African American) 89.4; Glucose 119 mg/dl (70-99); Potassium 4.5 mmol/L (3.5-5.1); Sodium 139 mmol/L (136-145)
[2019-07-13 16:32] LABS: Appearance Urine Clear (Clear); Bilirubin Urine Negative (Negative); Blood Urine Negative (Negative); Color Urine Yellow; Glucose Urine UA Negative (Negative); Ketones Urine Negative (Negative); Leukocyte Esterase Urine Negative (Negative); Nitrite Urine Negative (Negative); Protein Urine Negative (Negative); Specific Gravity Urine 1.006 (1.000-1.030); Urobilinogen Urine Negative (Negative)
[2019-07-13 16:36] LABS: Acetaminophen < 2 ug/ml (10-30); Salicylate < 1.7 mg/dl (2.8-20)
[2019-07-13 16:37] LABS: Creatine Kinase 98 U/L (39-308); Troponin I < 0.015 ng/ml (0-0.045)
[2019-07-13 16:49] LABS: Amphetamines+Metham, Urine Neg (Neg); Barbiturates, Urine Neg (Neg); Benzodiazepine, Urine Neg (Neg); Cocaine, Urine Neg (Neg); MDMA (Ecstacy), Urine Neg (Neg); Methadone, Urine Neg (Neg); Opiate, Urine Neg (Neg); Phencyclidine, Urine Neg (Neg)
[2019-07-13] MEDS ORDERED: LACTULOSE SYRUP 20 GM/30 ML UDC PO ONE (17:30)
[2019-07-13 17:45] LABS: Albumin Level 3.8 gm/dl (3.4-5.0); Aspartate Aminotransferase 8 U/L (15-37); Bilirubin,Total 0.3 mg/dl (0.2-1); Total Protein 7.7 gm/dl (6.4-8.2)
[2019-07-13 17:50] LABS: Alanine Aminotransferase 12 U/L (12-78); Alkaline Phosphatase 90 U/L (45-117); Bilirubin Direct < 0.1 mg/dl (0-0.2)
--- NOTE | 2019-07-13 18:24 | Emergency Department Note ---
Entered by Mera Sandoval acting as a scribe for ED Provider Note Name: JOHN SIM Age: 69 Arrives Via: Ambulance Informant: Patient CC: Illness HPI: The patient is a 69 year old male who presents to the Emergency Room with complaints of a worsening illness starting 2 weeks ago. The patient states that 2 weeks ago he fell and broke his left clavicle. He states that he has been doing well since then, besides falling about anoher6 times. He notes that last night though he moved the wrong way and now has increased pain in his left clavicle. He notes that he was sent in by his pillowcase maker because they believe he is taking too many of his medications and it is making him sick. He states that they say he is not himself, but he denies taking more than he is supposed to. He notes that he is supposed to start PT soon. The patient denies headache, neck pain, any other pain, and loss of appetite. ROS: See above HPI for pertinent positives & negatives. A total of 10 systems reviewed and were otherwise negative. Past Medical History:Bipolar, diabetes, dyslipidemia, HTN, schizophrenia Past Surgical History:Tonsillectomy, adenoidectomy Family History:lung cancer Social History:The patient is and lives alone with [facility]. He denies being a smoker, use of alcohol, and use of drugs. Home Medications:Albuterol sulfate, aspirin, cholecalciferol, cyanocobalamin, divalproex, fluticasone, glipizide, lisinopril, meloxicam, olanzapine, paroxetine, vitamin b complex Allergies:No known allergies. Vitals:Blood Pressure: 150/91, Pulse Rate: 69, Respiratory Rate: 18, Temperature: 36.7 C, O2 Saturations" 96% on room air Physical Exam: GENERAL: Patient is tired appearing and in no acute distress. EYES: No scleral icterus, unremarkable pupils. ENT: Mucous membranes moist, no nasal congestion. NECK: No masses appreciated, nomeningismus, trachea is midline. RESPIRATORY: No dyspnea. Clear to auscultation and equal bilaterally. No wheeze, no rhonchi. CARDIOVASCULAR: Regular rate and rhythm.No murmurs, rubs, gallops appreciated. GASTROINTESTINAL: Abdomen soft, non-tender, no peritonitis.Bowel sounds positive.No masses appreciated. BACK: No midline tenderness, no CVA tenderness EXTREMITIES: Normal motion all extremities, no cyanosis, no edema. Tenderness over left clavicle with old bruising. NEUROLOGIC: Alert and oriented, no acute motor or sensory deficits, no focal weakness, cranial nerves grossly intact. SKIN: No rash, no jaundice, no diaphoresis. ED Course: Prior Medical Record, Triage/Nursing Notes, Medications, Allergies reviewed by Me Vital Signs: reviewed and remarkable for HTN Labs:Reviewed and remarkable for elevated ammonia Interventions: saline lock, lactulose 20mg PO Imaging:ct head negative, cxr clavicle fracture stable, clavicle left stable left fracture Reassessments/Times: 1503: The patient was evaluated in room B3B. A complete history and physical exam was performed. 1510: I discussed the patient's case with the pillowcase maker and she is going to find out why the patient's pillowcase maker sent him in. 1548: The patient's pillowcase maker is here and speaking to the psych pillowcase maker about the patient. 1718: I reevaluated the patient and Kj Taveras has been paged for hospitalization due to an elevated ammonia. 1733: I discussed the patient's case with Dr. Good[place] [facility] [place] He will evaluate the patient for further management. Blood pressure:Elevated - Further Management by Hospitalist Disposition:Hospitalization Differentials:Differential Diagnosis includes but is not limited to dehydration, stroke, anemia, hypoglycemia, hyponatremia, hypernatremia, urinary tract infection, pneumonia, bronchitis, sepsis, gastroenteritis, additional abdominal pathology, metabolic abnormalities and infections. Medical Decision Makin yr old male with significant psychiatric history who lives at local [facility] arrives with pillowcase maker. He has been falling recently and even fell to point of breaking clavicle a few days ago. Since them per him he has been fine. Per Sheet Metal Engineer he has been having increasing confusion, increasing falls, and has been overdosing on his medications (multiple doses missing over last few days). Patient stable, comfortable without any complaints and denies any thoughts of harm to self nor others. He is breathing comfortably and tolerating PO. Extensive workup with normal ct and cxr. Labs unremarkable other than Ammonia elevated. Is on depakote though this level ok. Appears this has occured previously. Is elevated from his baseline level. credit analysis manager confirms this is how he was when ammonia was up in past. LFT and BMP looking OK. Tolerated Lactulose. He is here on [address] WARRANT and thus I do not this I can legit clear him medically at this time. Due to this will bring in for further management and monitoring. Case Management and hospitalist on board wit h plan. Patient without complaint. Impression: Hepatic Encephalopathy Frequent Falls Medication Overdose The scribe's documentation has been prepared under my direction and personally reviewed by me in its entirety. I confirm that the note above accurately r eflects all work, treatment, procedures, and medical decision making performed by me. Danny Pope MD Impression & Plan Hepatic encephalopathy, Medication overdose, Frequent falls Past Med/Surg History Medical History Bipolar I disorder, single manic episode Diabetes mellitus type 2, uncontrolled, without complications Dyslipidemia HTN (hypertension) Schizophrenia Surgical History S/P tonsillectomy and adenoidectomy Family History Mother Lung cancer Social History Preferred Language: Azerbaijani Communication Ability: Effective Visual Impairment: No Limitations Hearing Ability: Normal Beliefs That Will Affect Care: None marital status: Current Living Situation: Alone current occupational status: retired Feels Safe at Home: Yes Smoking Status: Never smoker Hx Alcohol Use: No Hx Substance Use: No Seatbelt Use: always Results & Data Vital Signs Vital Signs - 24 hr 07/13/19 14:19 07/13/19 14:38 07/13/19 16:03 Temperature 36.7 C Temperature Source Oral Pulse Rate 86 Pulse Rate [Apical] 82 77 Pulse Rhythm [Apical] Regular Regular Pulse Strength [Apical] Normal Respiratory Rate 20 17 18 Respiratory Effort / Characteristics Non-Labored Spontaneous Non-Labored Spontaneous Respiratory Depth Normal Normal Respiratory Pattern Regular Regular Blood Pressure 202/97 H Blood Pressure [Right Arm] 161/80 H 140/92 Blood Pressure Mean 132 Blood Pressure Mean [Right Arm] 107 108 Pulse Oximetry 92 92 96 Oxygen Delivery Method Room Air Room Air Room Air Sepsis Recent Fever Within 48 Hours No Sepsis New/Unexplained Change in Mental Status No Sepsis Action Taken by Nursing No Action Required 07/13/19 17:30 07/13/19 18:00 Temperature Temperature Source Pulse Rate Pulse Rate [Apical] 69 71 Pulse Rhythm [Apical] Regular Regular Pulse Strength [Apical] Respiratory Rate 18 18 Respiratory Effort / Characteristics Non-Labored Spontaneous Non-Labored Spontaneous Respiratory Depth Normal Normal Respiratory Pattern Regular Blood Pressure Blood Pressure [Right Arm] 150/91 H 170/81 H Blood Pressure Mean Blood Pressure Mean [Right Arm] 110 110 Pulse Oximetry 96 93 Oxygen Delivery Method Room Air Room Air Sepsis Recent Fever Within 48 Hours Sepsis New/Unexplained Change in Mental Status Sepsis Action Taken by Usp Medications Current Medication List: was personally reviewed by me Laboratory Data Attestation: I reviewed the patient's lab results. Result diagrams: 07/13/19 15:58 07/13/19 15:58 Lab Results 07/13/19 07/13/19 07/13/19 Range/Units 15:58 15:58 15:58 WBC 5.18 (4.8-10.8) K/uL RBC 4.37 L (4.7-6.1) M/uL Hgb 13.9 L (14.0-18.0) g/dL Hct 40.9 L (42-52) % MCV 93.6 (80-100) fL MCH 31.8 (25-34) pg MCHC 34.0 (32-36) g/dL RDW Std Deviation 44.8 (36.4-46.3) fL RDW Coeff of Gabbi 13.0 (11.5-14.5) % Plt Count 285 (130-400) K/uL MPV 8.5 (7.4-10.4) fL Immature Gran % (Auto) 0.2 % Neut % (Auto) 44.8 % Lymph % (Auto) 40.7 % Villalba % (Auto) 11.2 % Eos % (Auto) 2.9 % Baso % (Auto) 0.2 % Immature Gran # (Auto) 0.01 (0.00-0.02) K/uL Neut # (Auto) 2.32 (1.4-6.5) K/uL Lymph # (Auto) 2.11 (1.2-3.4) K/uL Villal[place] # (Auto) 0.58 (0.11-0.59) K/uL Eos # (Auto) 0.15 (0-0.5) K/uL Baso # (Auto) 0.01 (0-0.2) K/uL PT 10.9 (9.0-12.0) Seconds INR 1.1 (0.9-1.1) Sodium 139 (136-145) mmol/L Potassium 4.5 (3.5-5.1) mmol/L Chloride 106 (98-107) mmol/L Carbon Dioxide 28 (21-32) mmol/L Anion Gap 5.0 (3-11) BUN 6 L (7-18) mg/dl Creatinine 0.81 (0.6-1.4) mg/dl Est Cr Clr Drug Dosing 86.5 ml/min Est GFR ( Amer) 103.6 Est GFR (Non-Af Amer) 89.4 BUN/Creatinine Ratio 7.0 L (10-20) Glucose 119 H (70-99) mg/dl Calcium 9.2 (8.5-10.1) mg/dl Magnesium 2.0 (1.8-2.4) mg/dl Total Bilirubin 0.3 (0.2-1) mg/dl Direct Bilirubin < 0.1 (0-0.2) mg/dl AST 8 L (15-37) U/L ALT 12 (12-78) U/L Alkaline Phosphatase 90 (45-117) U/L Ammonia (11-32) umol/L Total Creatine Kinase 98 (39-308) U/L Troponin I < 0.015 (0-0.045) ng/ml Total Protein 7.7 (6.4-8.2) gm/dl Albumin 3.8 (3.4-5.0) gm/dl TSH 1.330 (0.300-4.500) uIu/ml Urine Color Urine Appearance (Clear) Urine pH (4.5-7.5) Ur Specific [place] (1.000-1.030) Urine Protein (Negative) Urine Glucose (UA) (Negative) Urine Ketones (Negative) Urine Blood (Negative) Urine Nitrite (Negative) Urine Bilirubin (Negative) Urine Urobilinogen (Negative) Ur Leukocyte Esterase (Negative) Salicylates (2.8-20) mg/dl Urine Opiates Screen (Neg) Ur Methadone, Qual (Neg) Acetaminophen (10-30) ug/ml Urine Barbiturates (Neg) Valproic Acid (50-100) mcg/ml Ur Phencyclidine (PCP) (Neg) U Amphetamin/Meth Scrn (Neg) MDMA (Ecstasy) Screen (Neg) U Benzodiazepines Scrn (Neg) Ur Cocaine Metabolite (Neg) U Marijuana (THC) Screen (Neg) Ethyl Alcohol mg/dL (0-3) mg/dl 07/13/19 07/13/19 07/13/19 Range/Units 15:58 15:58 15:58 WBC (4.8-10.8) K/uL RBC (4.7-6.1) M/uL Hgb (14.0-18.0) g/dL Hct (42-52) % MCV (80-100) fL MCH (25-34) pg MCHC (32-36) g/dL RDW Std Deviation (36.4-46.3) fL RDW Coeff of Gabbi (11.5-14.5) % Plt Count (130-400) K/uL MPV (7.4-10.4) fL Immature Gran % (Auto) % Neut % (Auto) % Lymph % (Auto) % Villalba % (Auto) % Eos % (Auto) % Baso % (Auto) % Immature Gran # (Auto) (0.00-0.02) K/uL Neut # (Auto) (1.4-6.5) K/uL Lymph # (Auto) (1.2-3.4) K/uL [place] # (Auto) (0.11-0.59) K/uL Eos # (Auto) (0-0.5) K/uL Baso # (Auto) (0-0.2) K/uL PT (9.0-12.0) Seconds INR (0.9-1.1) Sodium (136-145) mmol/L Potassium (3.5-5.1) mmol/L Chloride (98-107) mmol/L Carbon Dioxide (21-32) mmol/L Anion Gap (3-11) BUN (7-18) mg/dl Creatinine (0.6-1.4) mg/dl Est Cr Clr Drug Dosing ml/min Est GFR ( Amer) Est GFR (Non-Af Amer) BUN/Creatinine Ratio (10-20) Glucose (70-99) mg/dl Calcium (8.5-10.1) mg/dl Magnesium (1.8-2.4) mg/dl Total Bilirubin (0.2-1) mg/dl Direct Bilirubin (0-0.2) mg/dl AST (15-37) U/L ALT (12-78) U/L Alkaline Phosphatase (45-117) U/L Ammonia (11-32) umol/L Total Creatine Kinase (39-308) U/L Troponin I (0-0.045) ng/ml Total Protein (6.4-8.2) gm/dl Albumin (3.4-5.0) gm/dl TSH (0.300-4.500) uIu/ml Urine Color Urine Appearance (Clear) Urine pH (4.5-7.5) Ur Specific [place] (1.000-1.030) Urine Protein (Negative) Urine Glucose (UA) (Negative) Urine Ketones (Negative) Urine Blood (Negative) Urine Nitrite (Negative) Urine Bilirubin (Negative) Urine Urobilinogen (Negative) Ur Leukocyte Esterase (Negative) Salicylates < 1.7 L (2.8-20) mg/dl Urine Opiates Screen (Neg) Ur Methadone, Qual (Neg) Acetaminophen < 2 L (10-30) ug/ml Urine Barbiturates (Neg) Valproic Acid 90 (50-100) mcg/ml Ur Phencyclidine (PCP) (Neg) U Amphetamin/Meth Scrn (Neg) MDMA (Ecstasy) Screen (Neg) U Benzodiazepines Scrn (Neg) Ur Cocaine Metabolite (Neg) U Marijuana (THC) Screen (Neg) Ethyl Alcohol mg/dL < 3.0 (0-3) mg/dl 07/13/19 07/13/19 07/13/19 Range/Units 16:20 16:20 16:45 WBC (4.8-10.8) K/uL RBC (4.7-6.1) M/uL Hgb (14.0-18.0) g/dL Hct (42-52) % MCV (80-100) fL MCH (25-34) pg MCHC (32-36) g/dL RDW Std Deviation (36.4-46.3) fL RDW Coeff of Gabbi (11.5-14.5) % Plt Count (130-400) K/uL MPV (7.4-10.4) fL Immature Gran % (Auto) % Neut % (Auto) % Lymph % (Auto) % Villalba % (Auto) % Eos % (Auto) % Baso % (Auto) % Immature Gran # (Auto) (0.00-0.02) K/uL Neut # (Auto) (1.4-6.5) K/uL Lymph # (Auto) (1.2-3.4) K/uL [place] # (Auto) (0.11-0.59) K/uL Eos # (Auto) (0-0.5) K/uL Baso # (Auto) (0-0.2) K/uL PT (9.0-12.0) Seconds INR (0.9-1.1) Sodium (136-145) mmol/L Potassium (3.5-5.1) mmol/L Chloride (98-107) mmol/L Carbon Dioxide (21-32) mmol/L Anion Gap (3-11) BUN (7-18) mg/dl Creatinine (0.6-1.4) mg/dl Est Cr Clr Drug Dosing ml/min Est GFR ( Amer) Est GFR (Non-Af Amer) BUN/Creatinine Ratio (10-20) Glucose (70-99) mg/dl Calcium (8.5-10.1) mg/dl Magnesium (1.8-2.4) mg/dl Total Bilirubin (0.2-1) mg/dl Direct Bilirubin (0-0.2) mg/dl AST (15-37) U/L ALT (12-78) U/L Alkaline Phosphatase (45-117) U/L Ammonia 55.0 H (11-32) umol/L Total Creatine Kinase (39-308) U/L Troponin I (0-0.045) ng/ml Total Protein (6.4-8.2) gm/dl Albumin (3.4-5.0) gm/dl TSH (0.300-4.500) uIu/ml Urine Color Yellow Urine Appearance Clear (Clear) Urine pH 8.0 H (4.5-7.5) Ur Specific [place] 1.006 (1.000-1.030) Urine Protein Negative (Negative) Urine Glucose (UA) Negative (Negative) Urine Ketones Negative (Negative) Urine Blood Negative (Negative) Urine Nitrite Negative (Negative) Urine Bilirubin Negative (Negative) Urine Urobilinogen Negative (Negative) Ur Leukocyte Esterase Negative (Negative) Salicylates (2.8-20) mg/dl Urine Opiates Screen Neg (Neg) Ur Methadone, Qual Neg (Neg) Acetaminophen (10-30) ug/ml Urine Barbiturates Neg (Neg) Valproic Acid (50-100) mcg/ml Ur Phencyclidine (PCP) Neg (Neg) U Amphetamin/Meth Scrn Neg (Neg) MDMA (Ecstasy) Screen Neg (Neg) U Benzodiazepines Scrn Neg (Neg) Ur Cocaine Metabolite Neg (Neg) U Marijuana (THC) Screen Neg (Neg) Ethyl Alcohol mg/dL (0-3) mg/dl Administered Medications Discontinued Medications Lactulose (Chronulac) 20 gm PO NOW ONE Stop: 07/13/19 17:31 Last Admin: 07/13/19 17:34 Dose: 20 gm Documented by: [id number] Imaging Data Radiologist's Impression: Radiology results as stated below per my review and the radiologist's interpretation: XR clavicle 2 view LT, XR chest 1V portable HISTORY: 69 years-old Male fall, left clavicle fracture acute left shoulder pain status post fall COMPARISON: Left clavicle radiographs 07/01/2019 TECHNIQUE: 2 views of the left clavicle with AP view of the chest FINDINGS: CLAVICLE: Fracture of the distal left clavicle with comminution and displacement is redemonstrated. Fracture fragments are displaced several millimeters. The proximal clavicles displaced superiorly in relation to the distal clavicle approximately 13 mm. There is no significant change from the 07/01/2019 exam. Mild adjacent soft tissue swelling. Glenohumeral joint appears intact. CHEST: Calcified plaque of the thoracic aortic arch. Cardiac mediastinal and hilar silhouettes are within normal limits. Mild bibasilar atelectasis with background emphysema. There is no pneumothorax, large pleural effusion or overt pulmonary edema. Degenerative changes of the shoulders and spine. IMPRESSION: 1. No acute cardiopulmonary abnormality. 2. Acute comminuted and displaced fracture of the distal left clavicle redemonstrated. ACT 112: Negative or not required by law. The above report was generated using voice recognition software. It may contain grammatical, syntax or spelling errors. Electronically signed by: Geovany Brooks M.D. 07/13/2019 3:[address] head/brain wo con CLINICAL HISTORY: Falls COMPARISON STUDY: 06/22/2019 TECHNIQUE: Axial CT of the brain is performed from the vertex to the skull base. IV contrast was not administered for this examination. A dose lowering technique was utilized adhering to the principles of ALARA. CT DOSE: 537.48 mGy.cm FINDINGS: No intra or extra-axial mass lesions are visualized. There is no CT evidence of acute cortical infarction. There is no evidence of midline shift. There is no acute hemorrhage. No calvarial fractures are visualized. There are patchy white matter hypodensities likely on a small vessel basis. There is mild ventricular dilatation, unchanged from the prior study, and felt to be secondary to volume loss. There is no evidence of acute sinusitis IMPRESSION: No acute intracranial findings ACT 112: Negative or not required by law. Electronically signed by: Juan Mantilla M.D. 07/13/2019 4:21 PM Blood Pressure Blood Pressure Findings: Elevated blood pressure Blood Pressure Disposition: further management by hospitalist Discharge Plan Visit Data Chief Complaint: Illness ED Provider: Danny Pope Discharge Problem: Hepatic encephalopathy, Medication overdose, Frequent falls Patient Disposition: Being Evaluated by Hospitalist Forms Stand Alone Forms: My [facility] Prescriptions Prescriptions: No Action lisinopril 5 mg tablet 5 mg PO QAM Qty: 30 RF: 5 meloxicam 7.5 mg tablet 7.5 mg PO BID Qty: 60 RF: 2 fluticasone propion-salmeterol [Advair Diskus] 250-50 mcg/dose blister with device 1 puffs INH Q12H RF: 0 aspirin 81 mg tablet,delayed release (DR/EC) 81 mg PO QAM Qty: 90 RF: 0 cholecalciferol (vitamin D3) 1,000 unit capsule 1,000 units PO QAM Qty: 90 RF: 0 divalproex 250 mg tablet extended release 24 hr 250 mg PO BID RF: 0 divalproex 500 mg tablet extended release 24 hr 500 mg PO BID RF: 0 olanzapine 10 mg tablet 10 mg PO QAM RF: 0 olanzapine 15 mg tablet 15 mg PO HS RF: 0 (DME) lancets [OneTouch Delica Lancets] 33 gauge misc See Dose Instructions .ROUTE .MEDSUPPLY Qty: 100 RF: 0 (DME) OneTouch Ultra Blue Test Strip strip See Dose Instructions .ROUTE .MEDSUPPLY Qty: 10 RF: 0 paroxetine HCl 10 mg tablet 10 mg PO QAM RF: 0 albuterol sulfate [ProAir HFA] 90 mcg/actuation HFA aerosol inhaler 2 puffs INH Q6H PRN (Reason: Shortness Of Breath) RF: 0 vitamin B complex [B Complex-Vitamin B12] tablet 1 tab PO QAM RF: 0 cyanocobalamin (vitamin B-12) 1,000 mcg tablet 1,000 mcg PO QAM Qty: 30 RF: 0 glipizide 5 mg tablet 5 mg PO BID Qty: 180 RF: 0 Referrals Referrals: Roly Mariscal MD [Primary Care Provider] - Discharge Problem: Medication overdose Qualifiers: Encounter type: initial encounter Injury intent: undetermined intent Qualified Code(s): T50.904A - Poisoning by unspecified drugs, medicaments and biological substances, undetermined, initial encounter The scribe's documentation has been prepared under my direction and personally reviewed by me in its entirety. I confirm that the note above accurately reflects all work, treatment, procedures, and medical decision making performed by me.
--- NOTE | 2019-07-13 19:42 | History & Physical Report ---
Date of Service July 13, 2019 Assessment & Plan (1) Medication overdose: Currently patient is valproic acid is therapeutic. May be possible patient is misusing his medications but he is at an adequate level here. Will restart at previous dosing. We will ask psychiatry to review patient's medications and adjust as recommended. (2) Frequent falls: We will ask PT/OT to evaluate. May be secondary to hepatic encephalopathy, as noted below. (3) Hepatic encephalopathy: Patient had a mildly elevated ammonia at 55. His LFTs are otherwise negative. Patient was given lactulose in the emergency room. We can continue this and follow his mentation. I do not see any previous imaging of the patient's abdomen or liver in our system. Will check a right upper quadrant ultrasound along with a hepatitis panel. (4) Schizophrenia: Continue medications as noted above. Psychiatry consultation as noted above. Patient is currently under 302 status and will need to remain in the hospital until seen by psychiatry. At this time I do not feel the patient represents an immediate danger to himself or others. (5) Bipolar I disorder, single manic episode: (6) Diabetes mellitus type 2, uncontrolled, without complications: Patient is on glipizide only which we will continue. We will start low- dose sliding scale. Check hemoglobin A1c. (7) Dyslipidemia: Check lipid panel. Patient currently not on a statin or other medication for this. (8) HTN (hypertension): Blood pressure is mildly elevated. I do note that he is on lisinopril 5 mg daily which we will continue. Consider increasing dose if the blood pressure remains elevated over the next 24 hours. (9) Clavicular fracture: We will ask orthopedics to evaluate for further recommendations. History of Present Illness Chief Complaint: clavicular pain, possible medication overdose Primary Care Provider: Roly Mariscal MD This is a 69-year-old male with past medical history of bipolar schizophrenia, hypertension, dyslipidemia that presents today with pain in his left clavicle along with possible misuse of his medications. Patient seems to be in very good spirits but is a limited historian. Patient apparently had a fall 2 weeks ago as documented in the chart. This resulted in fracture of his left clavicle. He was seen in the emergency room on 06/22. There he was noted to have a mildly elevated Depakote level and there was concern that he was taking too many of his medications. At that time he was not admitted and sent home to follow-up with orthopedics. I do see note from primary care but nothing from orthopedics in the computer. Patient tells me he did follow with an orthopedist but cannot recall his name. He did get a sling that he uses but was not wearing at the time of evaluation. Per ER documentation, the patient was sent by the pillowcase cleaner from his custodial as they felt that he was taking too many his medications and was making him sick. They note that he is "not quite himself ". They also signed a 302 order to keep the patient in the hospital. When questioned, the patient tells me he does not take extra of his medication was surprised when I mentioned this. He seems to be in good spirits and denies any suicidal homicidal ideation. He denies any significant pain. He does have food at bedside but feels that he does not have the best appetite. He denies any fevers or chills. On work-up, the patient's Depakote level is therapeutic, and slightly decreased from previous. Patient's ammonia level was mildly elevated. He is being admitted for further work-up of these issues. Allergies Allergy/AdvReac Type Severity Reaction Status Date / Time No Known Drug Allergies Allergy Unknown Verified 07/13/19 14:35 Home Medications Home Medications Medication Instructions Recorded Confirmed Type albuterol sulfate 90 mcg/actuation 2 puffs INH Q6H PRN 04/01/19 07/13/19 History aerosol inhaler aspirin 81 mg tablet,delayed 81 mg PO QAM #90 tab 04/01/19 07/13/19 History release blood sugar diagnostic #10 ea 04/01/19 06/30/19 History cholecalciferol (vitamin D3) 25 1,000 units PO QAM #90 cap 04/01/19 07/13/19 History mcg (1,000 unit) capsule cyanocobalamin (vitamin B-12) 1,000 mcg PO QAM #30 tab 04/01/19 07/13/19 History 1,000 mcg tablet divalproex 250 mg tablet,extended 250 mg PO BID tab 04/01/19 07/13/19 History release 24 hr divalproex 500 mg tablet,extended 500 mg PO BID tab 04/01/19 07/13/19 History release 24 hr fluticasone 250 mcg-salmeterol 50 1 puffs INH Q12H 04/01/19 07/13/19 History mcg/dose blistr powdr for inhalation lancets 33 gauge #100 ea 04/01/19 06/30/19 History olanzapine 10 mg tablet 10 mg PO QAM tab 04/01/19 07/13/19 History olanzapine 15 mg tablet 15 mg PO HS tab 04/01/19 07/13/19 History paroxetine HCl 10 mg tablet 10 mg PO QAM tab 04/01/19 07/13/19 History vitamin B complex 1 tab PO QAM 04/01/19 07/13/19 History glipizide 5 mg tablet 5 mg PO BID #180 tab 04/06/19 07/13/19 History lisinopril 5 mg tablet 5 mg PO QAM #30 tab 06/16/19 07/13/19 Rx meloxicam 7.5 mg tablet 7.5 mg PO BID #60 tab 06/17/19 07/13/19 Rx Past Med/Surg History Medical History Bipolar I disorder, single manic episode Diabetes mellitus type 2, uncontrolled, without complications Dyslipidemia HTN (hypertension) Schizophrenia Surgical History S/P tonsillectomy and adenoidectomy Family History Mother Lung cancer Social History Preferred Language: Bengali Communication Ability: Effective Visual Impairment: No Limitations Hearing Ability: Normal 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 Beliefs That Will Affect Care: None marital status: Current Living Situation: Alone current occupational status: retired Other Information That Helps Us Care for You: No Feels Safe at Home: Yes Safety Concerns: Feels Safe At This Time Smoking Status: Never smoker Hx Alcohol Use: No Hx Substance Use: No Seatbelt Use: always Review of Systems Constitutional: no fever, no chills, no sweats, no malaise and no weight loss Ear, Nose, Mouth, Throat: as per Subjective / HPI Respiratory: no cough, no chest congestion, no dyspnea, no dyspnea on exertion and no wheezing Cardiovascular: no chest pain, no chest pain with activity, no palpitations and no edema Gastrointestinal: no nausea, no vomiting, no pain with swallowing, no constipation and no diarrhea/loose stools Musculoskeletal: as per Subjective / HPI Integumentary: as per Subjective / HPI Neurologic: + falls; no gait abnormality, no paralysis, no numbness and no radiating pain Psychiatric: as per Subjective / HPI; no suicidal ideation and no homicidal ideation Physical Exam Constitutional: well nourished and cooperative; no acute distress and not in distress Patient is pleasant although he has a somewhat bizarre affect. ENMT: external ear and nose normal, oropharynx normal Respiratory: normal respiratory effort, lungs clear to auscultation Auscultation: lungs clear to auscultation bilaterally; no crackles, no rales and no wheezes Cardiovascular: Rate/Rhythm: regular rate and regular rhythm Heart Sounds: normal S1 and normal S2 Vessels: no JVD and no carotid bruit Gastrointestinal (Abdomen): normal bowel sounds, soft, nontender, no hepatosplenomegaly Musculoskeletal: no cyanosis or clubbing, extremities motor strength 5/5 Neurologic: PERRL, EOMI, accommodation nl, no face palsy, no dysarthria Psychiatric: Orientation: alert and oriented x 3 Eye Contact: good eye contact Affect: mood congruent with affect Mood: + dysphoric mood Suicidal Thoughts: denies suicidal thoughts Homicidal Thoughts: denies homicidal thoughts Results & Data Vital Signs (Past 12 Hours) Vital Signs Temp Pulse Pulse Resp BP BP Pulse Ox 07/13/19 19:09 81 20 161/89 H 94 07/13/19 18:30 81 18 145/119 H 93 07/13/19 18:00 71 18 170/81 H 93 07/13/19 17:30 69 18 150/91 H 96 07/13/19 16:03 77 18 140/92 96 07/13/19 14:38 82 17 161/80 H 92 07/13/19 14:19 36.7 C 86 20 202/97 H 92 PG Care Time/CCT Total # of Minutes Spent Total Time Spent with Patient: Total time spent is greater than 50% in coordination of care (as documented) at patient's floor/unit and/or counseling patient: (1) Medication overdose Encounter type: initial encounter Injury intent: undetermined intent Qualified Code(s): T50.904A - Poisoning by unspecified drugs, medicaments and biological substances, undetermined, initial encounter :
[2019-07-13] MEDS ORDERED: DEXTROSE 50% 50 ML SYRINGE IV PRN (21:12)
[2019-07-13] MEDS ORDERED: ONDANSETRON INJ 2 MG/ML 2 ML VIAL IV PRN (21:12)
[2019-07-13] MEDS ORDERED: GLUCAGON FOR INJ 1 MG VIAL SQ PRN (21:12)
[2019-07-13] MEDS ORDERED: ACETAMINOPHEN 325 MG TAB PO PRN (21:12)
[2019-07-13] MEDS ORDERED: CARBOHYDRATES FOR HYPOGLYCEMIA PO PRN (21:12)
[2019-07-13] MEDS ORDERED: glipiZIDE 5 MG TAB PO SCH (21:12)
[2019-07-13] MEDS ORDERED: GLUCOSE 10 TABS/TUBE PO PRN (21:12)
[2019-07-13] MEDS ORDERED: GLUCOSE 40% GEL 15 GM TUBE PO PRN (21:12)
[2019-07-13] MEDS ORDERED: ALBUTEROL HFA 8 GM INHALER INH PRN (21:18)
[2019-07-13] MEDS ORDERED: PHARMACY GLYCEMIC MGMT CONSULT PRN (21:21)
[2019-07-13] MEDS: MELOXICAM 7.5 MG TAB PO SCH (21:58)
[2019-07-13] MEDS: FLUTICASONE/SALMETEROL 250/50 (ADVAIR) 14 PUFF/1 INHALER INH SCH (21:58)
[2019-07-13] MEDS: DIVALPROEX EXTENDED RELEASE 250 MG TABCR PO SCH (21:58)
[2019-07-13] MEDS: OLANZapine 5 MG TABLET PO SCH (21:58)
[2019-07-13] MEDS: DIVALPROEX EXTENDED RELEASE 500 MG TAB PO SCH (21:58)
[2019-07-13] MEDS: INSULIN ASPART 100 UNITS/ML 3 ML PEN SC SCH (22:03)
[2019-07-14 05:53] LABS: Basophils # (auto) 0.01 K/uL (0-0.2); Basophils % (auto) 0.2 %; Eosinophils # (auto) 0.15 K/uL (0-0.5); Eosinophils % (auto) 2.5 %; Hematocrit (blood only) 36.5 % (42-52); Hemoglobin 12.3 g/dL (14.0-18.0); Immature Granulocytes # (auto) 0.01 K/uL (0.00-0.02); Immature Granulocytes % (auto) 0.2 %; Lymphocytes # (auto) 2.64 K/uL (1.2-3.4); Lymphocytes % (auto) 43.9 %; Mean Corpuscular Hemoglobin 31.5 pg (25-34); Mean Corpuscular Hgb Conc 33.7 g/dL (32-36); Mean Corpuscular Volume 93.4 fL (80-100); Mean Platelet Volume 8.6 fL (7.4-10.4); Monocytes # (auto) 0.56 K/uL (0.11-0.59); Monocytes % (auto) 9.3 %; Neutrophils # (auto) 2.64 K/uL (1.4-6.5); Neutrophils % (auto) 43.9 %; Platelet Count 245 K/uL (130-400); RDW Standard Deviation 44.8 fL (36.4-46.3); Red Blood Count 3.91 M/uL (4.7-6.1); White Blood Count 6.01 K/uL (4.8-10.8)
[2019-07-14 06:31] LABS: Albumin Level 3.1 gm/dl (3.4-5.0); BUN Creatinine Ratio 12.3 (10-20); Calcium 8.5 mg/dl (8.5-10.1); Creatinine Clr Calc Pharmacy 111.2 ml/min; Est GFR (African American) 114.9; Est GFR (Non-African American) 99.1; Potassium 3.7 mmol/L (3.5-5.1)
[2019-07-14 06:35] LABS: Albumin Globulin Ratio 0.9 (0.9-2); Bilirubin,Total 0.4 mg/dl (0.2-1); Globulin 3.4 gm/dl (2.5-4.0); Total Protein 6.5 gm/dl (6.4-8.2)
[2019-07-14 08:04] LABS: Estimated Average Glucose 160 mg/dl; Hemoglobin A1C 7.2 % (4.5-5.6)
[2019-07-14] MEDS: FLUTICASONE/SALMETEROL 250/50 (ADVAIR) 14 PUFF/1 INHALER INH SCH ×2 (08:49→21:03)
[2019-07-14] MEDS: ASPIRIN 81 MG ECTAB PO SCH (08:50)
[2019-07-14] MEDS: MELOXICAM 7.5 MG TAB PO SCH ×2 (08:50→21:03)
[2019-07-14] MEDS: PARoxetine HCl 10 MG TAB PO SCH (08:50)
[2019-07-14] MEDS: DIVALPROEX EXTENDED RELEASE 500 MG TAB PO SCH ×2 (08:50→21:03)
[2019-07-14] MEDS: DIVALPROEX EXTENDED RELEASE 250 MG TABCR PO SCH ×2 (08:50→21:03)
[2019-07-14] MEDS: CHOLECALCIFEROL 1,000 UNITS TAB PO SCH (08:51)
[2019-07-14] MEDS: lisinopriL 5 MG TAB PO SCH (08:51)
[2019-07-14] MEDS: VITAMIN B COMPLEX TAB PO SCH (08:51)
[2019-07-14] MEDS: CYANOCOBALAMIN 500 MCG TABLET (VITAMIN B-12) PO SCH (08:51)
[2019-07-14] MEDS: OLANZapine 10 MG TAB PO SCH (08:52)
[2019-07-14] MEDS: INSULIN ASPART 100 UNITS/ML 3 ML PEN SC SCH ×4 (08:55→21:43)
--- NOTE | 2019-07-14 09:33 | Psychiatric Consultation ---
Date of Consultation July 14, 2019 Impression / Recommendations Impression 69-year-old male admitted medically on 07/13/2019 after presenting to the ED on a 302 mental health warrant. It was reported by multiple outpatient medical/psychiatric supports that patient was not at baseline, with associated concern he was taking too many of his medications. Patient was reportedly confused and demonstrating poor self-care, which led to the petition of a 302 warrant. Patient was admitted medically for further evaluation/clarification, and for treatment of hyperammonemia. Psychiatric consultation was requested due to patient being on a 302 mental health warrant, question of if medication adjustments are indicated. ED documentation suggests patient has demonstrated similar behavior in the past when his ammonia level was elevated. There is clear evidence reported from his home medication nurse that there are missing doses of medications, and patient also admits that he is likely not keeping track of taking them appropriately. There is no evidence at this time that these behaviors are directly related to patient's psychiatric condition. Patient is denying suicidal ideation, homicidal ideation, auditory and visual hallucinations, and other signs of acute psychosis. Although mental health for it was helpful in ensuring patient was evaluated for behavioral changes, it is not felt at this time that inpatient psychiatric treatment is warranted. Patient states he is tolerating his medications appropriately, and is denying any acute concerns to suggest inpatient psychiatric treatment is indicated. NATHALIA have been faxed to request records from patient's outpatient psychiatrist. It is recommended that case management also work and coordinating [employer], [employer], and home health services in order to address how this situation can be mitigated. 302 petitioning statement mentions concern regarding patient's living conditions. Referral to [facility] could be considered if there is question of safety related to returning to his living environment. At this time, there are no medication recommendations being offered from our service. Patient had an isolated episode of supratherapeutic valproic acid level during an ED visit on 06/22/2019. Timing of this lab drawing indicates that it was not a trough level, and therefore is not a reliable value on which today's medication adjustment. Remainder of valproic acid levels have been wi thin therapeutic range. We will attempt to gather collateral information from patient's outpatient psychiatrist; however, psychiatrically would not suggest changes to his valproic acid dosing at this time. It does appear as though his ammonia level is improving, if this trend continues would not suggest lowering his valproic acid dose and patient can follow-up with his outpatient psychiatrist. Although the source of patient's mental status change is unknown, available information suggests that it is more likely related to hyperammonemia as opposed to acute psychiatric changes. We will remain involved in patient's case, though we have no further recommendations at this time. Unless new information reveals that inpatient psychiatric treatment is necessary, would suggest disposition of 302 warrant by attending physician at time of discharge home. Dr. Rowan Maldonado was directly involved in review and discussion of the patient's case and participated in medical decision making regarding treatment recommendations. Risk Factors Assessment Do You Have Access To A Gun?: No Psych History Identifying Data 69-year-old male admitted medically on 07/13/2019 after presenting to the ED on a 302 mental health warrant. 302 petition was completed by RN involved in me dication management, who felt patient was not at baseline and that there was concern for patient having taken too much of his prescribed medications. Psychiatric consultation was requested to evaluate the patient as he is on a 302 warrant, and there is question of need for medication adjustments. Patient's ammonia was elevated in the ED, and there is a prior incident of supratherapeutic valproic acid level (though not trough level). Patient is cooperative with assessment, though is a limited historian. Chief Complaint "I'm making a lot more sense now. I took too much medicine." History of Present Illness Cuco Jameson is a 69-year-old male admitted medically on 07/13/2019 after presenting to the ED on a 302 mental health warrant. 302 petitioning statement was completed by RN through [facility], quotations selected from statement are as follows: "found he took 5 more doses of meds than he should have since Saturday"..."Has done this multiple times in the last 60 days and has been hospitalized recently due to this"..."increased ammonia levels and low sodium level from taking too much medications"..."was confused on what day it was today and slurring his speech during visit"..."Cuco told this nurse during visit that he was 'the stephen of the world because of a miracle that was performed' and 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 Psychiatric consultation was requested to evaluate patient due to 302 warrant on chart. We are requested to evaluate if medication adjustments are indicated. Patient's case was reviewed and discussed during morning report with psychiatric nurse liaison and psychiatrist. Patient is cooperative with psychiatric evaluation, though is a rather poor historian. Patient does have a history of clinical paranoid schizophrenia. Patient states that he is doing well, "making more sense now." The patient does state that he is feeling "the best I have ever been doing in my whole life." When asked what led to his hospitalization, the patient states "I took too much medicine. I think it was like 10 pills, and I should have only taken 5." Patient admits that he has numerous lan support specialist who entered his home, 1 of which is someone who assists with his medications. Patient does admit to having medication Dosepaks and thinks "exactly what happened" is that he was forgetting whether or not he had already taken his medication. Patient feels that the support services he receives are helpful, and denies any concerns within his apartment. Patient states that he receives "mom's meals", providing him a 2-week supply of food at a time. Patient denies issues with appetite or sleep. He denies auditory or visual hallucinations, stating "I haven't heard those in a long time, probably a year." She denies suicidal or homicidal ideation. Patient also denies substance use, stating his last beer was about 2 to 3 weeks ago, "and I do not plan to touch beer again as long as I live." Patient denies concerns related to his current medication regimen, believing that it is effective for him when he takes the medication appropriately. Patient does not feel as though inpatient psychiatric treatment is needed, though would be willing for admission if it was recommended by our team. Patient states "I think the biggest thing is I need to stop getting ahead of myself. I need to stop taking too much medication." Patient denies other needs or concerns from our service at this time. Past Psychiatric History Previous Psych History: Patient has documented diagnoses of schizophrenia and bipolar 1 disorder. Release has been sent to outpatient psychiatrist to gather additional information regarding psychiatric history. Patient does have case management through [employer], as well as assistance through [employer] medication management. It is reported the patient is seen at [facility] by Dr. Aiden martinez. It appears that patient had followed with Dr. Porter and Dr. Frazier in the past as well. No records indicating prior psychiatric admissions at this facility. It is reported that patient may have had a prior inpatient hospitalization at [facility] "2 or 3 years ago." Current Psychiatric Diagnosis: Paranoid Schizophrenia Do You Have Access To A Gun?: No Past Medication Trials: Unknown aside from current medication regimen Allergies Allergy/AdvReac Type Severity Reaction Status Date / Time No Known Drug Allergies Allergy Unknown Verified 07/13/19 14:35 Home Medications Home Medications Medication Instructions Recorded Confirmed Type albuterol sulfate 90 mcg/actuation 2 puffs INH Q6H PRN 04/01/19 07/13/19 History aerosol inhaler aspirin 81 mg tablet,delayed 81 mg PO QAM #90 tab 04/01/19 07/13/19 History release blood sugar diagnostic #10 ea 04/01/19 06/30/19 History cholecalciferol (vitamin D3) 25 1,000 units PO QAM #90 cap 04/01/19 07/13/19 History mcg (1,000 unit) capsule cyanocobalamin (vitamin B-12) 1,000 mcg PO QAM #30 tab 04/01/19 07/13/19 History 1,000 mcg tablet divalproex 250 mg tablet,extended 250 mg PO BID tab 04/01/19 07/13/19 History release 24 hr divalproex 500 mg tablet,extended 500 mg PO BID tab 04/01/19 07/13/19 History release 24 hr fluticasone 250 mcg-salmeterol 50 1 puffs INH Q12H 04/01/19 07/13/19 History mcg/dose blistr powdr for inhalation lancets 33 gauge #100 ea 04/01/19 06/30/19 History olanzapine 10 mg tablet 10 mg PO QAM tab 04/01/19 07/13/19 History olanzapine 15 mg tablet 15 mg PO HS tab 04/01/19 07/13/19 History paroxetine HCl 10 mg tablet 10 mg PO QAM tab 04/01/19 07/13/19 History vitamin B complex 1 tab PO QAM 04/01/19 07/13/19 History glipizide 5 mg tablet 5 mg PO BID #180 tab 04/06/19 07/13/19 History lisinopril 5 mg tablet 5 mg PO QAM #30 tab 06/16/19 07/13/19 Rx meloxicam 7.5 mg tablet 7.5 mg PO BID #60 tab 06/17/19 07/13/19 Rx Substance Abuse History Patient admits to history of tobacco use with both chewing and smoking. Patient states he quit both about 5 years ago. Patient denies use of illicit substances. He does admit to history of alcohol use, at most 2-3 beers about 2 days/week. 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") Marital Status: ( from first for 15 years, for 5) Number Of Children: "A bunch, I can't keep count", told psych liaison "6 or 7" Patient History Medical History Bipolar I disorder, single manic episode Diabetes mellitus type 2, uncontrolled, without complications Dyslipidemia HTN (hypertension) Schizophrenia Surgical History S/P tonsillectomy and adenoidectomy Family History Mother Lung cancer Social History Preferred Language: Greenlandic Communication Ability: Effective Visual Impairment: No Limitations Hearing Ability: Normal Blow Pit Helper Required: No Beliefs That Will Affect Care: None marital status: Current Living Situation: Alone current occupational status: retired Other Information That Helps Us Care for You: No Feels Safe at Home: Yes Safety Concerns: Feels Safe At This Time Smoking Status: Never smoker Hx Alcohol Use: No Hx Substance Use: No Seatbelt Use: always Physical Exam Psychiatric: Orientation: alert, oriented x 3 and cooperative (and pleasant, though limited historian) Apperance: appropriately dressed, appropriately groomed and appeared stated age Obese appearing male, seated in bedside chair in no acute distress. Patient is appropriately dressed for setting, wearing T-shirt and gym pants. Level of grooming appears adequate. Eye Contact: good eye contact Motor Behavior: no abnormal motor movements (Observed while sitting in bedside chair) Speech: normal rate/rhythm/volume of speech (hyperverbal, though does not appear rapid or pressured) Affect: euthymic affect and mood congruent with affect Mood: no depressed mood and no anxious mood "I am feeling pretty good now. Probably the best I have ever been doing in my whole life." Thought Process: goal directed thought process, clear/coherent thought process, + circumstantial thought process (occasionally jumping back in forth between questions being asked) and + concrete thought process Thought Content: reality based without delusions; not paranoid, no hopelessness and no worthlessness Suicidal Thoughts: denies suicidal thoughts, denies suicidal plan and denies suicidal intent Homicidal Thoughts: denies homicidal thoughts Hallucinations: no auditory hallucinations and no visual hallucinations Admits to history of auditory and visual hallucinations, though states "I have not heard those in a long time. Probably a year." Cognition: attention grossly intact and language grossly intact; + recent memory not intact Insight: + limited insight (Limitation likely chronic, related to long history of psychiatric disorder) Judgement: + fair judgement Vital Signs (Past 24 Hours): Last Vital Signs Temp 36.3 C L 07/14/19 07:15 Pulse 72 07/14/19 07:15 Resp 16 07/14/19 07:15 BP 139/81 07/14/19 07:15 Pulse Ox 94 07/14/19 07:15 Review of Systems Constitutional: denied Cardiovascular: denied Respiratory: denied Gastrointestinal: denied Neurological: denied Musculoskeletal: reports left shoulder pain Psychiatric: denies symptoms other than stated above Total of at least 10 systems reviewed, pertinent positives as above and in HPI. Results & Data Medications Administered Aspirin (Ecotrin Ectab) 81 mg PO [facility] Stop: 08/13/19 08:59 Last Admin: 07/14/19 08:50 Dose: 81 mg Documented by: [id number] Cyanocobalamin (Vitamin B-12) 1,000 mcg [facility] [place] Stop: 08/13/19 08:59 Last Admin: 07/14/19 08:51 Dose: 1,000 mcg Documented by: [id number] Divalproex Sodium (Depakote Extended Release) 250 mg PO BID [facility] Stop: 08/12/19 21:11 Last Admin: 07/14/19 08:50 Dose: 250 mg Documented by: [id number] Admin: 07/13/19 21:58 Dose: 250 mg Documented by: [id number] Divalproex Sodium (Depakote Extended Release) 500 mg PO BID [facility] Stop: 08/12/19 21:11 Last Admin: 07/14/19 08:50 Dose: 500 mg Documented by: [id number] Admin: 07/13/19 21:58 Dose: 500 mg Documented by: [id number] Insulin Aspart (Novolog Flexpen) 0 units SC ACHS [facility] Stop: 08/12/19 21:11 Last Admin: 07/14/19 08:55 Dose: 4 units Documented by: [id number] Cosigned by: [id number] Admin: 07/13/19 22:03 Dose: 1 units Documented by: [id number] Cosigned by: [id number] Lisinopril (Zestril) 5 mg PO QAM [facility] Stop: 08/13/19 08:59 Last Admin: 07/14/19 08:51 Dose: 5 mg Documented by: [id number] Meloxicam (Mobic) 7.5 mg PO BID [facility] Stop: 08/12/19 21:11 Last Admin: 07/14/19 08:50 Dose: 7.5 mg Documented by: [id number] Admin: 07/13/19 21:58 Dose: 7.5 mg Documented by: [id number] Olanzapine (Zyprexa) 10 mg PO QAM [facility] Stop: 08/13/19 08:59 Last Admin: 07/14/19 08:52 Dose: 10 mg Documented by: [id number] Olanzapine (Zyprexa) 15 mg PO HS [facility] Stop: 08/12/19 21:11 Last Admin: 07/13/19 21:58 Dose: 15 mg Documented by: [id number] Paroxetine HCl (Paroxetine Hcl) 10 mg PO QAM [facility] Stop: 08/13/19 08:59 Last Admin: 07/14/19 08:50 Dose: 10 mg Documented by: [id number] Fluticasone/Salmeterol (Advair Diskus 250/50) 1 puffs INH Q12 [facility] Stop: 08/12/19 21:11 Last Admin: 07/14/19 08:49 Dose: 1 puffs Documented by: [id number] Admin: 07/13/19 21:58 Dose: 1 puffs Documented by: [id number] Vitamin B Complex (Vitamin B Complex) 1 tab [facility] [place] [place] Stop: 08/13/19 08:59 Last Admin: 07/14/19 08:51 Dose: 1 tab Documented by: [id number] Vitamin D (Vitamin D3) 1,000 units [facility] [place] [place] Stop: 08/13/19 08:59 Last Admin: 07/14/19 08:51 Dose: 1,000 units Documented by: [id number] Coding Level of Care Code 09408 [facility] Int[facility] Hosp Care Lvl 3
--- NOTE | 2019-07-14 09:51 | Ultrasound Report ---
US liver CLINICAL HISTORY: 69 years-old Male presenting with Elevated Ammonia; Alcohol/Fatty Liver?. TECHNIQUE: Real-time grayscale and limited color Doppler ultrasound imaging of the abdomen limited to the right upper quadrant was performed. COMPARISON: None. FINDINGS: Pancreas: Visualized portions of the pancreatic head and body normal. Liver: Mildly hyperechogenic parenchyma, although the right hemidiaphragm remains visible, likely ind icating mild steatosis. The liver measures 14.7 cm in maximal sagittal dimension. No sonographic evid ence of hepatic mass. Main portal vein patent with normal directional flow. Biliary: No intrahepatic biliary ductal dilatation. Common bile duct measures up to 5-6 mm in diamete r. Gallbladder: Decompressed. No evidence of gallstones or pericholecystic fluid or inflammatory change. Ringdown artifact suggesting underlying presence of adenomyomatosis. Right kidney: Normal in appearance without evidence of hydronephrosis. Ascites: None. Other: None. IMPRESSION: 1. No cholelithiasis or biliary ductal dilatation. 2. Hepatic steatosis. Correlate with liver function tests to exclude steatohepatitis as a cause for abdominal pain. ACT 112: Negative or not required by law. Electronically signed by: Vipul Benitze M.D. 07/14/2019 9:50 AM
--- NOTE | 2019-07-14 10:43 | Pharmacy Report ---
Glycemic Control Consultation - Date of Service July 14, 2019 - Scope Scope: Glycemic Pharmacist consulted by Dr Good on 07/13/19 for glycemic control and to write orders per [facility] inpatient glycemic control protocol - Objective Weight: 87 kg Accuchecks BSG (last 24hrs): 07/13/19 07/13/19 07/14/19 15:58 21:21 05:34 Glucose 119 H 128 H POC Glucose 182 H 07/14/19 08:00 Glucose POC Glucose 136 H Laboratory Data (last 24hrs): 07/13/19 07/14/19 15:58 05:34 Potassium 4.5 3.7 D Carbon Dioxide 28 26 Anion Gap 5.0 8.0 Creatinine 0.81 0.63 Est Cr Clr Drug Dosing 86.5 111.2 HbA1c: Hemoglobin A1c 7.2 % (4.5-5.6) H 07/14/19 05:34 - Recent Pertinent Medications Outpatient Anti-diabetic Regimen: * glipizide 5 mg po BID The patient is currently receiving: * Basal insulin: Lantus -- units every -- hours * Correctional Insulin: Novolog Correction per scale ACHS Goal Range: Low 110 mg/dL - High 140 mg/dL Correction Factor: 30 mg/dL/unit * Prandial insulin: Per carb ratio of 1 unit per 10 grams CHO consumed * Oral Agents: glipizide 5 mg BID Risk Factors for Insulin Resistance: * Diet: T2DM - Assessment & Plan Assessment & Plan: ASSESSMENT: * Mr Jameson is a 69 y/o M with a PMH of reasonably controlled T2DM on one oral medication who presents for difficulties in taking his medications. Blood sugars yesterday were 119-182 mg/dL. Fasting this morning was 136 mg/dL which is within goal. Patient did receive dose of glipizide 5 mg yesterday evening. * Pt is maintained on oral antidiabetic agents as an outpatient * Oral agents are not recommended for inpatient use d/t drug interactions, changing PO intake, and difficulty titrating for acute hyper/hypoglycemia. ADA recommends re-initiating outpatient oral agents 1-2 days prior to discharge if/when appropriate if they were held on admission. * Will hold oral agents for admission and utilize SQ basal bolus insulin regimen which is the recommended regimen for inpatient glycemic control. * Will initiate weight based insulin dosing for insulin nabor patient and titrate based on BSG trends. * Start with weight-based stress of 2 Novolog. May require tightening of carbohydrate ratio depending on lunch. * Plan for Lantus scale this evening based upon BSGs. Only give Lantus if blood sugar over 160 mg/dL. PLAN FOR INPATIENT GLYCEMIC CONTROL: * Holding outpatient oral diabetes medications * Basal insulin * Lantus 0-15 units SQ HS * Hold Lantus if BSG less than 160 mg/dL * Lantus 10 units if BSG 160-200 mg/dL * Lantus 15 units if BSG greater than 200 mg/dL * Bolus insulin * NovoLog per scale ACHS or Q6hrs while NPO * Goal Range: Low 110 mg/dL - High 140 mg/dL * Correction Factor: 30 mg/dL/unit * Nutritional / Prandial insulin per carb ratio of 1 unit per 10 grams CHO consumed * Please note that the plan above was derived based on current level of insulin resistance and hospital stress. These recommendations are appropriate for inpatient admission only. Plan of care upon discharge will need to be reassessed to avoid potential outpatient hypo/hyperglycemia. Thank you.
[2019-07-14] MEDS: DICLOFENAC SOD 1% GEL 100 GM TUBE EXT SCH ×2 (13:06→21:03)
--- NOTE | 2019-07-14 13:13 | Hospitalist Progress Note ---
Date of Service July 14, 2019 Assessment & Plan (1) Medication overdose: - It appears he could be misusing his medications at home as more pills are missing then there should be. Patient is not sure but states it could be possible he is accidentally taking them - however valproic acid level is therapeutic - He denies taking medications to cause harm/. It is possible he could be forgetting he is taking them then takes another dose? Unfortunately the details of this likely will not be known - Continue Valproic Acid 750 mg BID - no plans for current medication adjustments at this time (2) Frequent falls: - Uncertain etiology of this - maybe from increased confusion? It is suggested that he has been drinking alcohol again. - Patient denies alcohol consumption and ETOH level negative on admission - Appreciate PT/OT evaluations (3) Hepatic encephalopathy: - Possibly hepatic encephalopathy due to medications - U/S Liver with some steatosis but LFTs WNL - It appears valproic acid can potentiate hyperammonemia - He has had 4 draws for this in our records all mildly elevated - ammonia currently at 40 (4) Schizophrenia: - Continue medications as dicussed above - Appears he could have some delusion thinking/tangential talk but can repeat discussions and follows conversation adequately. Denies SI/HI/hallucinations. Is alert and oriented currently. - He has a 302 warrant placed however does not appear inpatient psychiatry is necessary as he does not report intent for harm/ of self or others; possibly some issues with management of medications but otherwise appears well - Uncertain if some delusional thinking is baseline and will need to F/U with staff who are familiar with him. Do not suspect grounds for involuntary commitment. Will need to discuss options for disposition and what services could be available for him - Psychiatry following - appreciate input - discussed with Kristie Shin PA-C (5) Bipolar I disorder, single manic episode: - As discussed above; Valproic acid 750 mg BID, Olanzapine 10 mg AM and 15 mg PM, and Paroxetine 10 mg daily (6) Diabetes mellitus type 2, uncontrolled, without complications: - A1c 7 - Was previously on metformin but D/Cd on last admission - continued on Glipizide. Appreciate pharmacy input on management (7) Dyslipidemia: - Lipid panel unremarkable; not currently on statin/medication (8) HTN (hypertension): - Elevated on admission but improved today so far and will monitor - Continue Lisinopril 5 mg daily (9) Clavicular fracture: - Appears he was possibly seen as outpatient for this and is supposed to wear a sling but currently is not - Will trial some Voltaren Subjective Pt reports feeling well today. States his mind is a lot better and his thinking is better. He states it is possible he was accidentally taking his medications more then he was supposed to but he isn't sure. He does recall that there were empty packages of medications and stated maybe he did take them. He denies taking medications to cause harm to to commit suicide. He states he feels he has been doing well and hasn't drank in over a month. He states he quit drinking and smoking cigarettes and feeling well. He does note that he has had several falls then stated "the college kids would pick me up" and then discussed how the local town's people are really nice. He continues to have some discomfort in the L shoulder/clavicle region. States his previous neck pain is resolved. He verbalizes no other complaints Review of Systems Constitutional: no fever, no chills, no fatigue and no weakness Eyes: no worsening vision Ear, Nose, Mouth, Throat: no nasal congestion, no sore throat and no dysphagia Respiratory: no cough and no dyspnea Cardiovascular: no chest pain, no palpitations, no lightheadedness and no jose a ma Gastrointestinal: no abdominal pain, no nausea, no vomiting, no constipation and no diarrhea/loose stools Genitourinary: no dysuria Musculoskeletal: L shoulder/clavicular pain Integumentary: no rash Neurologic: no tingling and no numbness Psychiatric: no suicidal ideation, no homicidal ideation, no auditory hallucinations, no visual hallucinations and no substance abuse Physical Exam Constitutional: WD/WN, vitals as above Eyes: + anicteric sclerae ENMT: Ears: no hearing impairment Neck: trachea midline Respiratory: normal respiratory effort, lungs clear to auscultation Cardiovascular: RRR, no murmur, no edema Gastrointestinal (Abdomen): Inspection/Auscultation: normal bowel sounds Percussion/Palpation: abdomen soft; abdomen nontender Musculoskeletal: Head/Neck/Chest: normocephalic and head atraumatic Extremities: no cyanosis and no clubbing Skin: no rashes, warm and dry Neurologic: moves all extremities Psychiatric: Orientation: alert and oriented x 3 Eye Contact: good eye contact Suicidal Thoughts: + reports suicidal thoughts Homicidal Thoughts: + reports homicidal thoughts Hallucinations: no auditory hallucinations and no visual hallucinations Conversant and able to follow conversation; moments of tangential thinking Results & Data Vital Signs (Past 12 Hours) Vital Signs Temp Pulse Resp BP Pulse Ox 07/14/19 07:15 36.3 C L 72 16 139/81 94 PG Care Time/CCT Total # of Minutes Spent Total Time Spent with Patient: Total time spent is greater than 50% in coordination of care (as documented) at patient's floor/unit and/or counseling patient: (1) Medication overdose Encounter type: initial encounter Injury intent: undetermined intent Qualified Code(s): T50.904A - Poisoning by unspecified drugs, medicaments and biological substances, undetermined, initial encounter
--- NOTE | 2019-07-14 17:14 | Consultation Report ---
DATE OF CONSULTATION: 07/14/2019 PERTINENT HISTORY: This is a 69-year-old gentleman seen at the request of Dr. Rowan and Alok Good and Roly Mariscal for left distal clavicle fracture. This is a gentleman who sustained a mechanical fall due to multiple medical comorbidities and sustained a left distal clavicle fracture. He had been previously seen in the Emergency Department approximately 3 weeks ago on 06/22/2019, at which point radiographs were obtained, was given instruction to follow up with orthopedics. Apparently, the patient states that he saw an orthopedic surgeon at some point; however, he is uncertain as to where or when he saw this person and he is also uncertain on what settings he saw this person while he is in the hospital and some private clinic completely uncertain. Currently, he is having no pain with his shoulder and he was using the arm to hold a full container of water without any discomfort of his left upper extremity while using a cane than his right upper extremity. No other associated injuries or other complaints related to the left shoulder or upper extremity. PAST MEDICAL HISTORY: Frequent falls, possible medication overdosing, hepatic encephalopathy, schizophrenia, bipolar disorder type 1, diabetes mellitus type 2, dyslipidemia, hypertension, and clavicle fracture. PAST SURGICAL HISTORY: T and A. ALLERGIES: No known drug allergies. MEDICATIONS: Albuterol, aspirin, vitamin D3, vitamin B12, divalproex, fluticasone, lancets, olanzapine, paroxetine, vitamin B complex, glipizide, lisinopril, meloxicam. SOCIAL HISTORY: He is , lives alone and is retired. Denies current tobacco, alcohol or drug use. PHYSICAL EXAMINATION: He is a 69-year-old gentleman walking the halls at [facility] with a care taker present. He is alert and oriented x3. Speech appears clear and fluent. He is a poor historian; however, he has a cane in his right upper extremity. He has a narrow based slightly shuffling gait. Examination of the left shoulder demonstrates prominence of the left distal clavicle. No tenting of the skin. Minimally tender to palpation. Shoulder girdle appears essentially normal with slight foreshortening from lateral to medial. Range of motion of the left shoulder is limited due to discomfort at the shoulder, particularly at the extremes of motion. Strength is 4/5 in all ranges of motion of the left upper extremity compared to the left of the shoulder. 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 Radial pulses 2/4 bilaterally. Neurosensory exam is intact bilateral upper extremities. Radiographs demonstrate a moderately displaced distal clavicle fracture on the left, osteopenia is evident. No other obvious fractures. IMPRESSION: Left distal clavicle fracture, stable, nonoperative care at this time. RECOMMENDATION: Continue to sling p.r.n. Instructed the patient to maintain precautions with weightbearing and avoidance of falls. Recommend continue 1:1 observation while here at [facility] to prevent recurrent falls. Social Service for placement. Follow up as an outpatient after discharge. No lifting left upper extremity greater than 3-4 pounds. Thank you for the opportunity to consult in care of this patient.
[2019-07-14] MEDS: OLANZapine 5 MG TABLET PO SCH (21:02)
[2019-07-15] MEDS: DICLOFENAC SOD 1% GEL 100 GM TUBE EXT SCH ×3 (05:47→21:12)
[2019-07-15] MEDS: OLANZapine 10 MG TAB PO SCH (08:20)
[2019-07-15] MEDS: MELOXICAM 7.5 MG TAB PO SCH ×2 (08:21→20:30)
[2019-07-15] MEDS: DIVALPROEX EXTENDED RELEASE 500 MG TAB PO SCH ×2 (08:21→20:30)
[2019-07-15] MEDS: lisinopriL 5 MG TAB PO SCH (08:21)
[2019-07-15] MEDS: PARoxetine HCl 10 MG TAB PO SCH (08:21)
[2019-07-15] MEDS: DIVALPROEX EXTENDED RELEASE 250 MG TABCR PO SCH ×2 (08:21→20:30)
[2019-07-15] MEDS: CYANOCOBALAMIN 500 MCG TABLET (VITAMIN B-12) PO SCH (08:21)
[2019-07-15] MEDS: ASPIRIN 81 MG ECTAB PO SCH (08:22)
[2019-07-15] MEDS: FLUTICASONE/SALMETEROL 250/50 (ADVAIR) 14 PUFF/1 INHALER INH SCH ×2 (08:22→20:33)
[2019-07-15] MEDS: VITAMIN B COMPLEX TAB PO SCH (08:22)
[2019-07-15] MEDS: INSULIN ASPART 100 UNITS/ML 3 ML PEN SC SCH ×4 (08:22→20:53)
[2019-07-15] MEDS: CHOLECALCIFEROL 1,000 UNITS TAB PO SCH (08:22)
--- NOTE | 2019-07-15 10:17 | Hospitalist Progress Note ---
Date of Service July 15, 2019 Assessment & Plan (1) Medication overdose: - It appears he could be misusing his medications at home as more pills are missing then there should be. Patient is not sure but states it could be possible he is accidentally taking them - however valproic acid level is therapeutic - He denies taking medications to cause harm/. It is possible he could be forgetting he is taking them then takes another dose? Unfortunately the details of this likely will not be known - Continue Valproic Acid 750 mg BID - no plans for current medication adjustments at this time (2) Frequent falls: - Uncertain etiology of this - maybe from increased confusion? It is suggested that he has been drinking alcohol again. - Patient denies alcohol consumption on multiple occasions and ETOH level negative on admission - Appreciate PT/OT evaluations (3) Hepatic encephalopathy: - Possibly hepatic encephalopathy due to medications - U/S Liver with some steatosis but LFTs WNL - It appears valproic acid can potentiate hyperammonemia - He has had 4 draws for this in our records all mildly elevated - ammonia currently at 40 - appears likely he is at baseline (4) Schizophrenia: - Continue medications as dicussed above - Appears he could have some delusion thinking/tangential talk but can repeat discussions and follows conversation adequately. Denies SI/HI/hallucinations. Is alert and oriented currently. - He has a 302 warrant placed however does not appear inpatient psychiatry is necessary as he does not report intent for harm/ of self or others; possibly some issues with management of medications but otherwise appears well - Uncertain if some delusional thinking is baseline and will need to F/U with staff who are familiar with him. Do not suspect grounds for involuntary commitment. Will need to discuss options for disposition and what services could be available for him - Psychiatry following - appreciate input (5) Bipolar I disorder, single manic episode: - As discussed above; Valproic acid 750 mg BID, Olanzapine 10 mg AM and 15 mg PM, and Paroxetine 10 mg daily (6) Diabetes mellitus type 2, uncontrolled, without complications: - A1c 7 - Was previously on metformin but D/Cd on last admission - continued on Glipizide. Appreciate pharmacy input on management (7) Dyslipidemia: - Lipid panel unremarkable; not currently on statin/medication (8) HTN (hypertension): - Elevated on admission but improving - Continue Lisinopril 5 mg daily (9) Clavicular fracture: - Appears he was possibly seen as outpatient for this and is supposed to wear a sling but currently is not - Will trial some Voltaren which seems to help - Ortho consulted - Sling PRN; no lifting LUE greater than 3-4 lbs Disposition: Resident of [facility]. Patient will have manager case see him on and OOA referral placed to assess current living arrangements to see if current living arrangements allow him to be functional appropriately. At this time does not present as a harm to self or others and does not qualify for inpatient commitment. 302 will need disposition for clearance to return home. At this time he ultimately needs assistance with medications. Will keep hospitalized today with plans for DC on so he can be seen by his presidential support specialist. Subjective Reports feeling well today. Feels the shoulder is getting a little better and the Voltaren is helping. Knows he is in the hospital for taking his medications wrong. States he knows he should do better with managing his medications. He will have a casework manager and OOA see him on discharge. Continues to deny suicidal thoughts/intent. Is grateful for all the help he gets. Does tend to drink a lot of water which may have caused some issues with hyponatremia in the past. When asking him about his drinking he stated "I do drink a lot of water but no beer, haven't drank in a month" On recheck last night he did incidentally mention that he likes to just take his medications at one time mostly in the morning so possibly his getting confused on what he took/didn't take then possibly taking more at night? Review of Systems Constitutional: no fever and no chills Respiratory: no cough and no dyspnea Cardiovascular: no chest pain, no palpitations and no lightheadedness Gastrointestinal: no abdominal pain, no nausea, no vomiting, no constipation and no diarrhea/loose stools Genitourinary: no dysuria Musculoskeletal: + joint pain (clavicular/shoulder - improving with Voltaren) Integumentary: no rash Psychiatric: no suicidal ideation and no hallucinations Physical Exam Constitutional: WD/WN, vitals as above Eyes: + anicteric sclerae ENMT: Ears: no hearing impairment Neck: trachea midline Respiratory: normal respiratory effort, lungs clear to auscultation Cardiovascular: RRR, no murmur, no edema Gastrointestinal (Abdomen): Inspection/Auscultation: normal bowel sounds Percussion/Palpation: abdomen soft; abdomen nontender Musculoskeletal: Head/Neck/Chest: normocephalic and head atraumatic Extremities: no cyanosis and no clubbing Skin: no rashes, warm and dry Neurologic: moves all extremities Psychiatric: Orientation: alert and oriented x 3 Eye Contact: good eye contact Suicidal Thoughts: denies suicidal thoughts Homicidal Thoughts: denies homicidal thoughts Hallucinations: no auditory hallucinations and no visual hallucinations Results & Data Vital Signs (Past 12 Hours) Vital Signs Temp Pulse Resp BP Pulse Ox 07/15/19 07:02 36.4 C L 64 16 157/77 H 95 07/15/19 00:10 36.3 C L 80 16 154/75 H 93 PG Care Time/CCT Total # of Minutes Spent Total Time Spent with Patient: Total time spent is greater than 50% in coordination of care (as documented) at patient's floor/unit and/or counseling patient: (1) Medication overdose Encounter type: initial encounter Injury intent: undetermined intent Qualified Code(s): T50.904A - Poisoning by unspecified drugs, medicaments and biological substances, undetermined, initial encounter
[2019-07-15] MEDS: OLANZapine 5 MG TABLET PO SCH (20:29)
[2019-07-15] MEDS ORDERED: INSULIN GLARGINE SOLOSTAR 100 UNITS/ML 3 ML PEN SC SCH (21:00)
[2019-07-16] MEDS: DICLOFENAC SOD 1% GEL 100 GM TUBE EXT SCH ×2 (05:42→12:15)
[2019-07-16] MEDS: PARoxetine HCl 10 MG TAB PO SCH (08:21)
[2019-07-16] MEDS: CYANOCOBALAMIN 500 MCG TABLET (VITAMIN B-12) PO SCH (08:21)
[2019-07-16] MEDS: OLANZapine 10 MG TAB PO SCH (08:21)
[2019-07-16] MEDS: MELOXICAM 7.5 MG TAB PO SCH (08:22)
[2019-07-16] MEDS: CHOLECALCIFEROL 1,000 UNITS TAB PO SCH (08:22)
[2019-07-16] MEDS: DIVALPROEX EXTENDED RELEASE 500 MG TAB PO SCH (08:22)
[2019-07-16] MEDS: VITAMIN B COMPLEX TAB PO SCH (08:22)
[2019-07-16] MEDS: ASPIRIN 81 MG ECTAB PO SCH (08:22)
[2019-07-16] MEDS: DIVALPROEX EXTENDED RELEASE 250 MG TABCR PO SCH (08:22)
[2019-07-16] MEDS: lisinopriL 5 MG TAB PO SCH (08:22)
[2019-07-16] MEDS: FLUTICASONE/SALMETEROL 250/50 (ADVAIR) 14 PUFF/1 INHALER INH SCH (08:22)
[2019-07-16] MEDS: INSULIN ASPART 100 UNITS/ML 3 ML PEN SC SCH ×2 (08:23→12:16)
--- NOTE | 2019-07-16 09:10 | Pharmacy Report ---
Pharmacy Glycemic Short Note 2 - Date of Service July 16, 2019 - Glycemic Short BSG Results (Last 24 hours): 07/15/19 07/15/19 07/15/19 12:10 17:09 20:31 POC Glucose 157 H 115 H 108 H 07/16/19 08:20 POC Glucose 142 H OUTPATIENT ANTIDIABETIC REGIMEN: * Glipizide 5 mg po BID ASSESSMENT: * Mr Jameson is a 69 y/o M with a PMH of reasonably controlled T2DM on one oral medication who presents for difficulties in taking his medications. * Patient is currently receiving an average of 21 units of insulin per day * 0 units of basal insulin * 21 units of prandial/correctional insulin * BSGs ranging 108 -157 over the past 24hrs * Risk factors for insulin resistance are constant over the past 24hrs * Anticipating insulin regimen will need no changes for the next 24hrs * Patient does have PRN dose of Lantus at HS for BSG > 160mg/dl - will continue at this time as he has been off of glipizide x 2 days now. May be able to discontinue after another 24 hours of euglycemia. PLAN FOR INPATIENT GLYCEMIC CONTROL: * Basal insulin * 0 units for BSG 160mg/dl or less * Lantus 10 units SQ HS for BSG > 160mg/dl * Lantus 15 units SQ HS for BSG > 200mg/dl * Bolus insulin * NovoLog per scale ACHS or Q6hrs while NPO * Goal Range: Low 110 mg/dL - High 140 mg/dL * Correction Factor: 30 mg/dL/unit * Nutritional / Prandial insulin per carb ratio of 1 unit per 7 grams CHO consumed PLAN FOR DISCHARGE: * A1c = 7.2% on 07/14/19 * Goal A1c < 8 % based on age and comorbidities * Continue Glipizide 5mg PO BID upon discharge
--- NOTE | 2019-07-16 12:36 | Discharge Summary ---
Date of Service July 16, 2019 Admission HPI Per Admitting Provider This is a 69-year-old male with past medical history of bipolar schizophrenia, hypertension, dyslipidemia that presents today with pain in his left clavicle along with possible misuse of his medications. Patient seems to be in very good spirits but is a limited historian. Patient apparently had a fall 2 weeks ago as documented in the chart. This resulted in fracture of his left clavicle. He was seen in the emergency room on 06/22. There he was noted to have a mildly elevated Depakote level and there was concern that he was taking too many of his medications. At that time he was not admitted and sent home to follow-up with orthopedics. I do see note from primary care but nothing from orthopedics in the computer. Patient tells me he did follow with an orthopedist but cannot recall his name. He did get a sling that he uses but was not wearing at the time of evaluation. Per ER documentation, the patient was sent by the family service caseworker from his retirement as they felt that he was taking too many his medications and was making him sick. They note that he is "not quite himself ". They also signed a 302 order to keep the patient in the hospital. When questioned, the patient tells me he does not take extra of his medication was surprised when I mentioned this. He seems to be in good spirits and denies any suicidal homicidal ideation. He denies any significant pain. He does have food at bedside but feels that he does not have the best appetite. He denies any fevers or chills. On work-up, the patient's Depakote level is therapeutic, and slightly decreased from previous. Patient's ammonia level was mildly elevated. He is being admitted for further work-up of these issues. Principal Diagnosis Medication Misuse Discharge Exam Constitutional WD/WN, vitals as above Eyes + anicteric sclerae ENMT Ears: no hearing impairment Neck trachea midline Respiratory normal respiratory effort, lungs clear to auscultation Cardiovascular RRR, no murmur, no edema Gastrointestinal (Abdomen) Inspection/Auscultation: normal bowel sounds Percussion/Palpation: abdomen soft; abdomen nontender Musculoskeletal Head/Neck/Chest: normocephalic and head atraumatic Extremities: no cyanosis and no clubbing Skin no rashes, warm and dry Neurologic moves all extremities Psychiatric Orientation: alert and oriented x 3 Eye Contact: good eye contact Suicidal Thoughts: denies suicidal thoughts Homicidal Thoughts: denies homicidal thoughts Hallucinations: no auditory hallucinations and no visual hallucinations Discharge Data Allergies Allergy/AdvReac Type Severity Reaction Status Date / Time No Known Drug Allergies Allergy Unknown Verified 07/13/19 14:35 Consultations 07/13/19 17:31 ED Decision to Admit Stat 07/13/19 21:12 Consult Psychiatry Routine 07/13/19 21:38 Consult Orthopedic Surgery Routine Ordered Studies 07/13/19 15:09 CT head/brain wo con Stat 07/14/19 08:25 liver Routine Hospital Course (1) Medication overdose: - It appears he could be misusing his medications at home as more pills are missing then there should be. Patient is not sure but states it could be possible he is accidentally taking them - however valproic acid level is therapeutic on admission - He denies taking medications to cause harm/. It is possible he could be forgetting he is taking them then takes another dose? Unfortunately the details of this likely will not be known - Continue Valproic Acid 750 mg BID - no plans for current medication adjustments at this time but this can be closely managed with his already established psychiatrist (2) Frequent falls: - Uncertain etiology of this - maybe from increased confusion? It is suggested that he has been drinking alcohol again. - Patient denies alcohol consumption on multiple occasions and ETOH level negative on admission - Does utilize a cane and currently with L clavicle fracture this can make some issues with ambulating (3) Hepatic encephalopathy: - Possibly hepatic encephalopathy due to medications - U/S Liver with some steatosis but LFTs WNL - It appears valproic acid can potentiate hyperammonemia - He has had 4 draws for this in our records all mildly elevated - ammonia currently at 40 - appears likely he is at baseline mentation hart - Could consider adjustments of medications to try and avoid this but ultimately medication monitoring will keep this stable (4) Schizophrenia: - Continue medications as dicussed above - Appears he could have some delusion thinking/tangential talk but can repeat discussions and follows conversation adequately. Denies SI/HI/hallucinations. Is alert and oriented currently. -- Most of his delusion thinking seems to be in regards to the number of children he has and their occupations however not sure of this element of his life to compare - He has a 302 warrant placed however does not appear inpatient psychiatry is necessary as he does not report intent for harm/ of self or others; possibly some issues with management of medications but otherwise appears well; will have [facility] evaluate living conditions/functionality at home - Psychiatry followed - appreciate input (5) Bipolar I disorder, single manic episode: - As discussed above; Valproic acid 750 mg BID, Olanzapine 10 mg AM and 15 mg PM, and Paroxetine 10 mg daily (6) Diabetes mellitus type 2, uncontrolled, without complications: - A1c 7 - Was previously on metformin but D/Cd on last admission - continued on Glipizide. Appreciate pharmacy input on management (7) Dyslipidemia: - Lipid panel unremarkable; not currently on statin/medication (8) HTN (hypertension): - Elevated on admission but improving - Continue Lisinopril 5 mg daily (9) Clavicular fracture: - Appears he was possibly seen as outpatient for this and is supposed to wear a sling but currently is not - Will trial some Voltaren which seems to help - Ortho consulted - Sling PRN; no lifting LUE greater than 3-4 lbs Disposition: Resident [facility]. Patient will have family service caseworker see him on and [facility]OA referral placed to assess current living arrangements to see if current living arrangements allow him to be functional appropriately. At this time does not present as a harm to self or others and does not qualify for inpatient commitment. 302 dispositioned for clearance to return home. At this time he ultimately needs assistance with medications. Total Time Total Time Spent Total Time Spent (In Minutes): Greater than 30 minutes Discharge Plan Discharge Items Patient Disposition: Home - Home Health Services Reason For Visit: 302,MEDICATION OVERUSE Discharge Diagnosis: Medication Misuse Activity: Resume your previous activity Non-emergency contact: Primary Care Provider Call non-emergency contact if: you have any medication questions, your symptoms worsen and you have a fever Follow-up/Referrals: Roly Mariscal MD [Primary Care Provider] - 07/24/19 1:00 pm (Please, follow up at Dr. Mariscal's office with his associate, Mary Jo Hernandez PA-C, on SaturdayJuly 24 at 1:00 pm. *If you need to change this appointment, call their office at [phone].) Radhika Ames M.D. [Outside Practitioners] - 08/07/19 1:30 pm Diet: Carb Consistent or DM2 Addtl Attending Provider Instructions: Using medications wrong: - Mr. Griffiths, it is important that you take your medications as prescribed by your doctors. It is very important to take then at the right time of the day and to not take more then what is prescribed to you. - When you take too much of your medications you can get confused and it can cause a lot of problems. - We did not make any changes to your medications at this time, so the doses and the amount you are supposed to take is the same. - You may need to have someone help you with your medications. If you are not sure about your medications it is important for you to ask someone that helps you and they might be able to assist you. Falls and Broken Clavicle/collar bone - You had a higher ammonia level when you came into the hospital. It is possible this is from your medications and that is why it is important to take them as they are prescribed. - If you have a higher ammonia level this can cause you to be sleepy or confused which could have caused your problems that brought you to the hospital - You were seen by a bone doctor in the hospital. The plan is to let that collarbone heal. You can wear a sling if that helps your pain. No lifting with that hand anything that is greater than 3-4 lbs for a few weeks and can follow- up with your doctor Diabetes:high sugars: - It is important to follow with your doctors to make sure your sugars stay at good levels. Continue your medications for this. Pending Studies at Discharge: No Stand-Alone Forms: [facility], Smoking Cessation Medications and DC Order Prescriptions: New diclofenac sodium [Voltaren] 1 % Gel 4 g EXT Q8H 10 Days Qty: 100 RF: 0 Continued lisinopril 5 mg tablet 5 mg PO QAM Qty: 30 RF: 5 meloxicam 7.5 mg tablet 7.5 mg PO BID Qty: 60 RF: 2 fluticasone propion-salmeterol [Advair Diskus] 250-50 mcg/dose blister with device 1 puffs INH Q12H RF: 0 aspirin 81 mg tablet,delayed release (DR/EC) 81 mg PO QAM Qty: 90 RF: 0 cholecalciferol (vitamin D3) 1,000 unit capsule 1,000 units PO QAM Qty: 90 RF: 0 divalproex 250 mg tablet extended release 24 hr 250 mg PO BID RF: 0 divalproex 500 mg tablet extended release 24 hr 500 mg PO BID RF: 0 olanzapine 10 mg tablet 10 mg PO QAM RF: 0 olanzapine 15 mg tablet 15 mg PO HS RF: 0 (DME) lancets [OneTouch Delica Lancets] 33 gauge misc See Dose Instructions .ROUTE .MEDSUPPLY Qty: 100 RF: 0 (DME) OneTouch Ultra Blue Test Strip strip See Dose Instructions .ROUTE .MEDSUPPLY Qty: 10 RF: 0 paroxetine HCl 10 mg tablet 10 mg PO QAM RF: 0 albuterol sulfate [ProAir HFA] 90 mcg/actuation HFA aerosol inhaler 2 puffs INH Q6H PRN (Reason: Shortness Of Breath) RF: 0 vitamin B complex [B Complex-Vitamin B12] tablet 1 tab PO QAM RF: 0 cyanocobalamin (vitamin B-12) 1,000 mcg tablet 1,000 mcg PO QAM Qty: 30 RF: 0 glipizide 5 mg tablet 5 mg PO BID Qty: 180 RF: 0 Discharge Orders: Discharge Order (Routine); Ordered 07/16/19 Ordered By: Frida Brown Admission Data Admit Date/Time: 07/13/19 20:15 Attending Provider: Alejandra Rivera Admit Provider: Alok Good Primary Care Provider: Roly Mariscal Other Providers: Alok Good ; Desirae Moreno ; Faisal Hurtado ; [facility] Other Interventions: Discharge Summary Assessment (RN) Last Done: 07/16/19 10:19 DC Date/Time DO NOT enter until pt leaves facility: 07/16/19 12:37 Supervising Physician Co-Signing Physician Notes Pt seen and examined by me. Denies chest pain or SOB. Tolerating PO without issue. Is happy for d/c today. States he has no plans for alcohol. "I told myself that I am done with beer." Agree with HPI/ROS as noted by PA Hrt: RRR Lungs: CTA Abd: neg for TTP, nondistended LE: neg for edema Affect is pleasant, answers all questions appropriately Agree with plan as outlined above Admitted for medication overdose Some concern from outpt nursing that this was intentional, however pt has denied this emphatically Seems more of a medication administration error HHN to assist 302 cancelled Psych did not feel pt qualified for inpt tx and requested 302 cx
== END 2019-07-16 12:37 | disposition home health service (06) | DRG 443 ==
LOC: ED 14:16 → SUATTDRO 20:15 → 3W 20:15 → SUPCPDRO 20:15 → 3W 21:10

== ENCOUNTER 2021-02-16 23:33 | Inpatient (IN) ==
[2021-02-16] MEDS ORDERED: SODIUM CHLORIDE 0.9% 1000ML 500 ML IV ONE (23:54)
--- NOTE | 2021-02-16 23:59 | Emergency Department Note ---
Impression & Plan Acute hyponatremia, Frequent falls, Generalized weakness ED Provider Note Name: JOHN SIM Age: 71 Sex: M Arrives Via: Ambulance Informant: Patient, EMS ED Provider: Danny Pope MD Chief Complaint: Falls Impression: See Above Medical Decision Makin yr old male with extensive PMH and psychiatric history arrives for worsening weakness and falls at home. He is a bit dehydrated on exam though no overt trauma besides abrasions to elbow. He is awake and somewhat oriented though is a bit confused. He was given IV fluids and extensive work-up obtained. CT head negative acute pathology. Labs with worsening of chronic hyponatremia. EKG w ith Bigeminy which is new. Given findings and weakness will need hospitalization for management which patient is agreeable to. Prior Medical Record and Triage/Nursing Notes reviewed by Me Additional history obtained from chart Differentials:Infection, dehydration, metabolic abnormality, hypo/hyperglycemia, electrolyte disturbance, anemia, hypoxia, cardiac sources, intracerebral event, toxicologic, neurologic, as well as other pathologies. Vital Signs: reviewed and remarkable for no significant abnormalities Interventions: saline lock, nss bolus Labs:Reviewed and remarkable for hypoNa Imaging:X ray results are stated below per my interpretation: Chest: 1 view: No infiltrate, no effusion, normal cardiac border. [facility] Radiologist interpretation reviewed by me: ct head no acute findings EKG:Per My Interpretation: Indication Weakness: Atrial Bigeminy 91 bpm, qtc 501. No Ischemia. Compared to EKG he was in NSR. Cardiac/Tele Monitoring: Cardiac Monitoring: An Order was placed for continuous cardiac monitoring. The monitor shows a rate of 90 with a bigeminy and sometimes trigeminy rhythm. Consults:Dr Garth AMBRIZ Hospitalist Plan: Disposition:Hospitalization. Condition: Good History of Present Illness:71 yr old male arrives for evaluation of weakness. Patient notes that for the last year he has been having worsening weakness. He admits he falls quite frequently despite use of walker. Today he has fallen 3 days. He is not sure if he hit his head though he denies LOC, headache, neck pain. Some low back discomfort but denies pain and states this is chronic. No focal weakness. No medications prior to arrival. Exertion makes worse, rest makes better. After 3rd fall he was unable to get up and laid on the ground for 2 to 3 hours. Admits he doesn't think he is safe at home any longer. No fevers, chills, chest pain, sob, back pain, nausea, vomiting, abdominal pain, syncope, vision changes, urinary/bowel symptoms, leg swelling, rashes, nor other symptoms. ROS: See above HPI for pertinent positives & negatives. A total of 10 systems reviewed and were otherwise negative. Past Medical History:See Below Past Surgical History:See Below Family History:See Below Social History:See Below Home Medications:See Below Allergies:NKDA Vitals:Blood Pressure: 152/80, Pulse 77, RR 18, T 36.8C, O2 94% on RA Physical Exam: GENERAL: Patient is elderly/frail appearing and in no acute distress. EYES: No scleral icterus, unremarkable pupils. ENT: Mucous membranes moist, no nasal congestion. NECK: No masses appreciated, nomeningismus, trachea is midline. RESPIRATORY: No dyspnea. Clear to auscultation and equal bilaterally. No wheeze, no rhonchi. CARDIOVASCULAR: Regular rate and rhythm.No murmurs, rubs, gallops appreciated. GASTROINTESTINAL: Abdomen soft, non-tender, no peritonitis.Bowel sounds positive.No masses appreciated. BACK: No midline tenderness, no CVA tenderness EXTREMITIES: Abrasions/bruising right elbow. Normal motion all extremities, no cyanosis, no edema. NEUROLOGIC: Alert and oriented, no acute motor or sensory deficits, no focal weakness, cranial nerves grossly intact. SKIN: Mild bruise upper right iliac crest. No rash, no jaundice, no diaphoresis. PSYCH: Appropriate GCS: 15 ED Course: Times/Reassessments: stable, breathing comfortably agreeable to hospitalization Danny Pope MD Past Med/Surg History Medical History Abnormal CXR Bipolar I disorder, single manic episode Clavicular fracture Coughing Diabetes mellitus type 2, uncontrolled, without complications Dyslipidemia HTN (hypertension) Lung nodule Medication overdose Medication overdose Neck pain Pulmonary emphysema Surgical History S/P tonsillectomy and adenoidectomy Family History Mother Lung cancer Colorectal cancer Brother Colorectal cancer Denies family history of Ovarian cancer Prostate cancer Coronary heart disease Breast cancer Social History (Updated 12/14/20 @ 13:59 by Winston Rossi) Smoking Status: Former smoker Second Hand Exposure: No; Do You Dip or Chew Tobacco: No; Tobacco Cessation Education Requested by Patient: No Hx Alcohol Use: No Hx Substance Use: No Preferred Language: Urdu Communication Ability: Effective Communication Ability Comment: has MR Visual Impairment: No Limitations Hearing Ability: Normal New Car Driver Required: No Beliefs That Will Affect Care: None marital status: Current Living Situation: Alone Current Living Situation Comment: lives in apartment going to [facility] soon though current occupational status: retired Other Information That Helps Us Care for You: No Feels Safe at Home: Yes Safety Concerns: Feels Safe At This Time Childhood Exposure to Second-Hand Smoke: Yes Dental Care, Regularly: Yes Physical Activity Frequency: Does not Exercise Seatbelt Use: always Sunscreen Use: No Assistive Devices: Walker Allergies Allergies Allergy/AdvReac Type Severity Reaction Status Date / Time No Known Drug Allergies Allergy Unknown Verified 12/14/20 13:57 Home Meds Home Medications Medication Instructions Recorded Confirmed lancets 33 gauge (OneTouch Delica #100 ea 04/01/19 12/14/20 Lancets) vitamin B complex (B 1 tab PO QAM 04/01/19 02/17/21 Complex-Vitamin B12) Equate Extra strength pain 1 applic TOPICAL UD 02/11/20 02/17/21 relieving cream Previous Rx's Medication Instructions Recorded OneTouch Delica Lancets 33 gauge #100 ea NS 10/21/19 (lancets) OneTouch Verio test strips (blood #100 ea NS 10/21/19 sugar diagnostic) divalproex 250 mg tablet,extended 250 mg PO BID #60 tab 11/15/19 release 24 hr divalproex 500 mg tablet,extended 500 mg PO BID #60 tab 11/15/19 release 24 hr olanzapine 10 mg tablet 10 mg PO QAM #30 tab 11/15/19 olanzapine 15 mg tablet 15 mg PO HS #30 tab 11/15/19 paroxetine HCl 10 mg tablet 10 mg PO QAM #30 tab 11/15/19 metformin 1,000 mg tablet 1,000 mg PO BID #180 tab 04/13/20 albuterol sulfate 90 mcg/actuation 2 puff INH Q6H PRN #18 gm 06/01/20 aerosol inhaler (ProAir HFA) cyanocobalamin (vitamin B-12) 1,000 mcg PO QAM #30 tab 08/23/20 1,000 mcg tablet glipizide 5 mg tablet 5 mg PO BID 90 Days #60 tab 11/18/20 umeclidinium 62.5 mcg/actuation 1 inh INHALATION DAILY #30 ea 12/07/20 blister powder for inhalation (Incruse Ellipta) losartan 25 mg tablet 25 mg PO DAILY #90 tab 12/27/20 furosemide 40 mg tablet (Lasix) 40 mg PO DAILY #30 tab 01/05/21 aspirin 81 mg tablet,delayed 81 mg PO QAM #90 tab 01/09/21 release meloxicam 7.5 mg tablet 7.5 mg PO BID #60 tab 01/09/21 cholecalciferol (vitamin D3) 25 1,000 unit PO QAM #90 cap 02/07/21 mcg (1,000 unit) capsule Results & Data (ED) Vital Signs Vital Signs - 24 hr 02/16/21 23:45 Temperature 36.8 C Temperature Source Oral Pulse Rate 77 Respiratory Rate 18 Respiratory Effort / Characteristics Non-Labored Spontaneous Respiratory Depth Normal Blood Pressure 152/80 H Blood Pressure Mean 104 Pulse Oximetry 94 Oxygen Delivery Method Room Air Sepsis Recent Fever Within 48 Hours No Sepsis New/Unexplained Change in Mental Status No Sepsis Action Taken by Nursing No Action Required Laboratory Data Result diagrams: 02/17/21 00:10 02/17/21 00:10 Lab Results 02/17/21 02/17/21 02/17/21 Range/Units 00:10 00:10 00:10 WBC (4.8-10.8) K/uL RBC (4.7-6.1) M/uL Hgb (14.0-18.0) g/dL Hct (42-52) % MCV (80-100) fL MCH (25-34) pg MCHC (32-36) g/dL RDW Std Deviation (36.4-46.3) fL RDW Coeff of Gabbi (11.5-14.5) % Plt Count (130-400) K/uL MPV (7.4-10.4) fL Immature Gran % (Auto) % Neut % (Auto) % Lymph % (Auto) % [place] % (Auto) % Eos % (Auto) % Baso % (Auto) % Neut # (Auto) (1.4-6.5) K/uL Lymph # (Auto) (1.2-3.4) K/uL [place] # (Auto) (0.11-0.59) K/uL Eos # (Auto) (0-0.5) K/uL Baso # (Auto) (0-0.2) K/uL Immature Gran # (Auto) (0.00-0.02) K/uL ESR 4 (0-20) mm/hr Sodium 124 L (136-145) mmol/L Potassium 3.4 L (3.5-5.1) mmol/L Chloride 89 L (98-107) mmol/L Carbon Dioxide 28 (21-32) mmol/L Anion Gap 7.0 (3-11) BUN 6 L (7-18) mg/dl Creatinine 0.85 (0.6-1.4) mg/dl Est Cr Clr Drug Dosing 79.8 ml/min Est GFR ( Amer) 100.2 ml/min Est GFR (Non-Af Amer) 86.4 ml/min BUN/Creatinine Ratio 7.7 L (10-20) Glucose 80 (70-99) mg/dl Osmolality (280-300) mOsm/kg Calcium 8.5 (8.5-10.1) mg/dl Phosphorus 3.1 (2.5-4.9) mg/dl Magnesium 1.4 L (1.8-2.4) mg/dl Total Bilirubin 0.6 (0.2-1) mg/dl Direct Bilirubin 0.2 (0-0.2) mg/dl AST 27 (15-37) U/L ALT 22 (12-78) U/L Alkaline Phosphatase 69 (45-117) U/L Total Creatine Kinase 555 H (39-308) U/L Troponin I < 0.015 (0-0.045) ng/ml Total Protein 7.1 (6.4-8.2) gm/dl Albumin 3.8 (3.4-5.0) gm/dl Lipase 132 (73-393) U/L Urine Color Urine Appearance (Clear) Urine pH (4.5-7.5) Ur Specific [place] (1.000-1.030) Urine Protein (Negative) Urine Glucose (UA) (Negative) Urine Ketones (Negative) Urine Blood (Negative) Urine Nitrite (Negative) Urine Bilirubin (Negative) Urine Urobilinogen (Negative) Ur Leukocyte Esterase (Negative) Urine Osmolality (500-800) mOsm/kg Valproic Acid 94 (50-100) mcg/ml COVID-19 Eval Order SARS-CoV-2 (PCR) (Negative) 02/17/21 02/17/21 02/17/21 Range/Units 00:10 00:10 00:25 WBC 8.55 (4.8-10.8) K/uL RBC 4.21 L (4.7-6.1) M/uL Hgb 13.9 L (14.0-18.0) g/dL Hct 36.8 L (42-52) % MCV 87.4 (80-100) fL MCH 33.0 (25-34) pg MCHC 37.8 H (32-36) g/dL RDW Std Deviation 40.9 (36.4-46.3) fL RDW Coeff of Gabbi 12.7 (11.5-14.5) % Plt Count 254 (130-400) K/uL MPV 8.5 (7.4-10.4) fL Immature Gran % (Auto) 0.4 % Neut % (Auto) 64.2 % Lymph % (Auto) 20.8 % [place] % (Auto) 12.6 % Eos % (Auto) 2.0 % Baso % (Auto) 0.0 % Neut # (Auto) 5.49 (1.4-6.5) K/uL Lymph # (Auto) 1.78 (1.2-3.4) K/uL [place] # (Auto) 1.08 H (0.11-0.59) K/uL Eos # (Auto) 0.17 (0-0.5) K/uL Baso # (Auto) 0.00 (0-0.2) K/uL Immature Gran # (Auto) 0.03 H (0.00-0.02) K/uL ESR (0-20) mm/hr Sodium (136-145) mmol/L Potassium (3.5-5.1) mmol/L Chloride (98-107) mmol/L Carbon Dioxide (21-32) mmol/L Anion Gap (3-11) BUN (7-18) mg/dl Creatinine (0.6-1.4) mg/dl Est Cr Clr Drug Dosing ml/min Est GFR ( Amer) ml/min Est GFR (Non-Af Amer) ml/min BUN/Creatinine Ratio (10-20) Glucose (70-99) mg/dl Osmolality 256 L (280-300) mOsm/kg Calcium (8.5-10.1) mg/dl Phosphorus (2.5-4.9) mg/dl Magnesium (1.8-2.4) mg/dl Total Bilirubin (0.2-1) mg/dl Direct Bilirubin (0-0.2) mg/dl AST (15-37) U/L ALT (12-78) U/L Alkaline Phosphatase (45-117) U/L Total Creatine Kinase (39-308) U/L Troponin I (0-0.045) ng/ml Total Protein (6.4-8.2) gm/dl Albumin (3.4-5.0) gm/dl Lipase (73-393) U/L Urine Color Urine Appearance (Clear) Urine pH (4.5-7.5) Ur Specific [place] (1.000-1.030) Urine Protein (Negative) Urine Glucose (UA) (Negative) Urine Ketones (Negative) Urine Blood (Negative) Urine Nitrite (Negative) Urine Bilirubin (Negative) Urine Urobilinogen (Negative) Ur Leukocyte Esterase (Negative) Urine Osmolality (500-800) mOsm/kg Valproic Acid (50-100) mcg/ml COVID-19 Eval Order Covid19 at [facility] SARS-CoV-2 (PCR) (Negative) 02/17/21 02/17/21 02/17/21 Range/Units 00:25 01:52 01:52 WBC (4.8-10.8) K/uL RBC (4.7-6.1) M/uL Hgb (14.0-18.0) g/dL Hct (42-52) % MCV (80-100) fL MCH (25-34) pg MCHC (32-36) g/dL RDW Std Deviation (36.4-46.3) fL RDW Coeff of Gabbi (11.5-14.5) % Plt Count (130-400) K/uL MPV (7.4-10.4) fL Immature Gran % (Auto) % Neut % (Auto) % Lymph % (Auto) % [place] % (Auto) % Eos % (Auto) % Baso % (Auto) % Neut # (Auto) (1.4-6.5) K/uL Lymph # (Auto) (1.2-3.4) K/uL [place] # (Auto) (0.11-0.59) K/uL Eos # (Auto) (0-0.5) K/uL Baso # (Auto) (0-0.2) K/uL Immature Gran # (Auto) (0.00-0.02) K/uL ESR (0-20) mm/hr Sodium (136-145) mmol/L Potassium (3.5-5.1) mmol/L Chloride (98-107) mmol/L Carbon Dioxide (21-32) mmol/L Anion Gap (3-11) BUN (7-18) mg/dl Creatinine (0.6-1.4) mg/dl Est Cr Clr Drug Dosing ml/min Est GFR ( Amer) ml/min Est GFR (Non-Af Amer) ml/min BUN/Creatinine Ratio (10-20) Glucose (70-99) mg/dl Osmolality (280-300) mOsm/kg Calcium (8.5-10.1) mg/dl Phosphorus (2.5-4.9) mg/dl Magnesium (1.8-2.4) mg/dl Total Bilirubin (0.2-1) mg/dl Direct Bilirubin (0-0.2) mg/dl AST (15-37) U/L ALT (12-78) U/L Alkaline Phosphatase (45-117) U/L Total Creatine Kinase (39-308) U/L Troponin I (0-0.045) ng/ml Total Protein (6.4-8.2) gm/dl Albumin (3.4-5.0) gm/dl Lipase (73-393) U/L Urine Color Yellow Urine Appearance Clear (Clear) Urine pH 6.5 (4.5-7.5) Ur Specific [place] 1.005 (1.000-1.030) Urine Protein Negative (Negative) Urine Glucose (UA) Negative (Negative) Urine Ketones Negative (Negative) Urine Blood Negative (Negative) Urine Nitrite Negative (Negative) Urine Bilirubin Negative (Negative) Urine Urobilinogen Negative (Negative) Ur Leukocyte Esterase Negative (Negative) Urine Osmolality 141 L (500-800) mOsm/kg Valproic Acid (50-100) mcg/ml COVID-19 Eval Order SARS-CoV-2 (PCR) NEGATIVE (Negative) Administered Medications Acetaminophen (Acetaminophen 325 Mg Tab) 650 mg PO Q4H PRN PRN Reason: Pain or Fever Stop: 03/19/21 03:44 Last Admin: 02/17/21 04:41 Dose: 650 mg Documented by: [id number] Discontinued Medications Sodium Chloride (Nss 1000ml) 500 mls @ 999 mls/hr IV .Q31M ONE Stop: 02/17/21 00:24 Last Infusion: 02/17/21 00:44 Dose: 0 mls/hr Documented by: [id number] Admin: 02/17/21 00:13 Dose: 999 mls/hr Documented by: [id number] Magnesium Sulfate/Dextrose (Magnesium Sulfate / D5w) 1 gm in 100 mls @ 50 mls/hr IV ONE STA Stop: 02/17/21 04:24 Last Admin: 02/17/21 02:36 Dose: 50 mls/hr Documented by: [id number] Potassium Chloride (K [place] / Wtr) 10 meq in 100 mls @ 100 mls/hr IV ONE ONE Stop: 02/17/21 04:59 Last Admin: 02/17/21 04:20 Dose: 100 mls/hr Documented by: [id number] Discharge Plan Visit Data Chief Complaint: Fall Stated Complaint: FALL w/ BACK & HIP PAIN. HE IS CONFUSED ED Provider: Danny Pope Discharge Problem: Acute hyponatremia, Frequent falls, Generalized weakness Patient Disposition: Admitted As Inpatient Discharge Instructions Interventions: ED Discharge Assessment Last Done: 02/17/21 03:02
[2021-02-17 00:24] LABS: Eosinophils # (auto) 0.17 K/uL (0-0.5); Hematocrit (blood only) 36.8 % (42-52); Hemoglobin 13.9 g/dL (14.0-18.0); Immature Granulocytes # (auto) 0.03 K/uL (0.00-0.02); Immature Granulocytes % (auto) 0.4 %; Lymphocytes # (auto) 1.78 K/uL (1.2-3.4); Lymphocytes % (auto) 20.8 %; Mean Corpuscular Hgb Conc 37.8 g/dL (32-36); Mean Corpuscular Volume 87.4 fL (80-100); Mean Platelet Volume 8.5 fL (7.4-10.4); Monocytes # (auto) 1.08 K/uL (0.11-0.59); Monocytes % (auto) 12.6 %; Neutrophils # (auto) 5.49 K/uL (1.4-6.5); Neutrophils % (auto) 64.2 %; Platelet Count 254 K/uL (130-400); RDW Coefficient of Variation 12.7 % (11.5-14.5); RDW Standard Deviation 40.9 fL (36.4-46.3); Red Blood Count 4.21 M/uL (4.7-6.1); White Blood Count 8.55 K/uL (4.8-10.8)
[2021-02-17 00:45] LABS: Alanine Aminotransferase 22 U/L (12-78); Albumin Level 3.8 gm/dl (3.4-5.0); Aspartate Aminotransferase 27 U/L (15-37); BUN Creatinine Ratio 7.7 (10-20); Bilirubin Direct 0.2 mg/dl (0-0.2); Blood Urea Nitrogen 6 mg/dl (7-18); Calcium 8.5 mg/dl (8.5-10.1); Carbon Dioxide 28 mmol/L (21-32); Chloride 89 mmol/L (98-107); Creatinine Clr Calc Pharmacy 79.8 ml/min; Est GFR (African American) 100.2 ml/min; Est GFR (Non-African American) 86.4 ml/min; Glucose 80 mg/dl (70-99); Lipase 132 U/L (73-393); Magnesium 1.4 mg/dl (1.8-2.4); Potassium 3.4 mmol/L (3.5-5.1); Sodium 124 mmol/L (136-145)
[2021-02-17 00:48] LABS: Alkaline Phosphatase 69 U/L (45-117); Bilirubin,Total 0.6 mg/dl (0.2-1); Creatine Kinase 555 U/L (39-308); Phosphorus 3.1 mg/dl (2.5-4.9); Total Protein 7.1 gm/dl (6.4-8.2); Troponin I < 0.015 ng/ml (0-0.045)
[2021-02-17 02:00] LABS: Appearance Urine Clear (Clear); Bilirubin Urine Negative (Negative); Blood Urine Negative (Negative); Color Urine Yellow; Glucose Urine UA Negative (Negative); Ketones Urine Negative (Negative); Leukocyte Esterase Urine Negative (Negative); Nitrite Urine Negative (Negative); Protein Urine Negative (Negative); Specific Gravity Urine 1.005 (1.000-1.030); Urobilinogen Urine Negative (Negative); pH Urine 6.5 (4.5-7.5)
--- NOTE | 2021-02-17 02:14 | History & Physical Report ---
Date of Service February 17, 2021 Assessment & Plan (1) Balance disorder: Plan: Balance disorder/frequent falls- Multifactorial: Deconditioning, medication related, diabetic peripheral neuropathy, hyponatremia, others Patient's living arrangements will need to be assessed prior to discharge to see if he is still acceptable to return to living at home by himself. He reportedly has people checking in on him on a regular basis (2) Hyponatremia: Plan: Sodium 124 Serum osmolality 256 Urine osmolality 141 Suggestion of excess fluid intake/psychogenic polydipsia Fluid restriction to 1200 cc daily. (3) Diabetic peripheral neuropathy: Plan: Hold glipizide and Metformin Placed on Accu-Cheks before meals and at bedtime with NovoLog coverage per scale Check hemoglobin A1c (4) Schizophrenia: Plan: Continue usual medications (5) Bipolar I disorder, single manic episode: Plan: Continue usual medications (6) Dyslipidemia: Plan: Reported in history of been on no specific treatment (7) HTN (hypertension): Plan: Hypertension/atrial bigeminy/atrial trigeminy- Admit to monitored bed Optimize potassium from 3.4 with K riders x2 Optimize magnesium from 1.4 with 3 g of mag sulfate IV Repeat laboratories in a.m. (8) Atrial bigeminy: Plan: See above (9) Atrial trigeminy: Plan: See above (10) Frequent falls: Plan: Multifactorial as above. Consult PT/OT (11) Uncontrolled type 2 diabetes mellitus with neurologic complication: Plan: See above (12) Hypomagnesemia: Plan: See above (13) Hypokalemia: Plan: See above History of Present Illness Chief Complaint: The patient is brought to the emergency department via ambulance with complaint of generalized weakness, that he notes has been worsening over the past year, but has been having more issues with falling over the past 3 days Primary Care Provider: Roly Mariscal MD The patient is a 71-year-old male with a past medical history including balance disorder pulmonary emphysema, coughing, lung nodule, diabetes mellitus type 2, diabetic peripheral neuropathy, long-term use of insulin, cellulitis, obesity, edema, dysesthesia, hepatic encephalopathy, dehydration, schizophrenia, lactic acidosis, bipolar 1 disorder, dyslipidemia hypertension. He presents with symptoms as noted above. Significant laboratory abnormalities in the ED: Sodium 124, potassium 3.4, magnesium 1.4, CK 555. Patient was COVID-[address] of head without contrast was negative. X-rays of chest and pelvis were negative. Monitor in the ED showed atrial trigeminy Allergies Allergy/AdvReac Type Severity Reaction Status Date / Time No Known Drug Allergies Allergy Unknown Verified 12/14/20 13:57 Home Medications Medication Instructions Recorded Confirmed Type lancets 33 gauge (OneTouch Delica #100 ea 04/01/19 12/14/20 History Lancets) vitamin B complex (B 1 tab PO QAM 04/01/19 02/17/21 History Complex-Vitamin B12) OneTouch Delica Lancets 33 gauge #100 ea NS 10/21/19 12/14/20 Rx (lancets) OneTouch Verio test strips (blood #100 ea NS 10/21/19 12/14/20 Rx sugar diagnostic) divalproex 250 mg tablet,extended 250 mg PO BID #60 tab 11/15/19 02/17/21 Rx release 24 hr divalproex 500 mg tablet,extended 500 mg PO BID #60 tab 11/15/19 02/17/21 Rx release 24 hr olanzapine 10 mg tablet 10 mg PO QAM #30 tab 11/15/19 02/17/21 Rx olanzapine 15 mg tablet 15 mg PO HS #30 tab 11/15/19 02/17/21 Rx paroxetine HCl 10 mg tablet 10 mg PO QAM #30 tab 11/15/19 02/17/21 Rx Equate Extra strength pain 1 applic TOPICAL UD 02/11/20 02/17/21 History relieving cream metformin 1,000 mg tablet 1,000 mg PO BID #180 tab 04/13/20 02/17/21 Rx albuterol sulfate 90 mcg/actuation 2 puff INH Q6H PRN #18 gm 06/01/20 02/17/21 Rx aerosol inhaler (ProAir HFA) cyanocobalamin (vitamin B-12) 1,000 mcg PO QAM #30 tab 08/23/20 02/17/21 Rx 1,000 mcg tablet glipizide 5 mg tablet 5 mg PO BID 90 Days #60 tab 11/18/20 02/17/21 Rx umeclidinium 62.5 mcg/actuation 1 inh INHALATION DAILY #30 ea 12/07/20 02/17/21 Rx blister powder for inhalation (Incruse Ellipta) losartan 25 mg tablet 25 mg PO DAILY #90 tab 12/27/20 02/17/21 Rx furosemide 40 mg tablet (Lasix) 40 mg PO DAILY #30 tab 01/05/21 02/17/21 Rx aspirin 81 mg tablet,delayed 81 mg PO QAM #90 tab 01/09/21 02/17/21 Rx release meloxicam 7.5 mg tablet 7.5 mg PO BID #60 tab 01/09/21 02/17/21 Rx cholecalciferol (vitamin D3) 25 1,000 unit PO QAM #90 cap 02/07/21 02/17/21 Rx mcg (1,000 unit) capsule Past Med/Surg History Medical History Abnormal CXR Bipolar I disorder, single manic episode Clavicular fracture Coughing Diabetes mellitus type 2, uncontrolled, without complications Dyslipidemia HTN (hypertension) Lung nodule Medication overdose Medication overdose Neck pain Pulmonary emphysema Surgical History S/P tonsillectomy and adenoidectomy Family History Mother Lung cancer Colorectal cancer Brother Colorectal cancer Denies family history of Ovarian cancer Prostate cancer Coronary heart disease Breast cancer Social History (Updated 12/14/20 @ 13:59 by Winston Rossi) Smoking Status: Former smoker Second Hand Exposure: No; Do You Dip or Chew Tobacco: No; Tobacco Cessation Education Requested by Patient: No Hx Alcohol Use: No Hx Substance Use: No Preferred Language: Yi Communication Ability: Effective Communication Ability Comment: has MR Visual Impairment: No Limitations Hearing Ability: Normal Branch Service Leader Required: No Beliefs That Will Affect Care: None marital status: Current Living Situation: Alone Current Living Situation Comment: lives in apartment going to [facility] soon though current occupational status: retired Other Information That Helps Us Care for You: No Feels Safe at Home: Yes Safety Concerns: Feels Safe At This Time Childhood Exposure to Second-Hand Smoke: Yes Dental Care, Regularly: Yes Physical Activity Frequency: Does not Exercise Seatbelt Use: always Sunscreen Use: No Assistive Devices: Walker Review of Systems Review of Systems: The patient denies chest pain, palpitations, shortness of breath, dyspnea on exertion, cough, lower extremity swelling, sore throat, fevers, chills, sweats, nausea, vomiting, diarrhea , constipation, abdominal pain, pelvic pain, blood in urine or stool, dysuria, urinary frequency or urgency, lightheadedness, dizziness, headache, loss of consciousness, rash, abnormal bruising or bleeding, focal weakness, numbness or tingling in arms or legs, generalized arthralgias or myalgias, back or neck pain, or night sweats. The review of systems is otherwise negative other than for that already noted above, and at least 10 systems have been reviewed. Physical Exam Physical Exam: The patient is awake, alert and oriented 3, well developed and well nourished, normocephalic and atraumatic, lying in bed and in no acute distress. HEENT--PERRL, EOMI, mucous membranes and oropharynx dry. Neck--supple. No JVD. No bruits. Thyroid normal, trachea midline, no adenopathy. Heart--normal S1 and S2. No murmurs, rubs or gallops. Lungs--clear bilaterally, no respiratory distress, no accessory muscle use. Abdomen--normal bowel sounds and soft. Nontender. Nondistended, no hernias or masses, no organomegaly. Extremities--no cyanosis or clubbing. No edema. Dermatologic--normal skin turgor, normal color, no abnormal lymph nodes, no rash. Neurologic--cranial nerves II through XII grossly intact. Rheumatologic--normal range of motion. Psychiatric--cooperative Results & Data Results & Data ([facility]) Vital Signs (Past 12 Hours) Vital Signs Temp Pulse Resp BP Pulse Ox 02/16/21 23:45 98.2 F 77 18 152/80 H 94 Laboratory Results Laboratory Results WBC 8.55 K/uL (4.8-10.8) 02/17/21 00:10 RBC 4.21 M/uL (4.7-6.1) L 02/17/21 00:10 Hgb 13.9 g/dL (14.0-18.0) L 02/17/21 00:10 Hct 36.8 % (42-52) L 02/17/21 00:10 MCV 87.4 fL (80-100) 02/17/21 00:10 MCH 33.0 pg (25-34) 02/17/21 00:10 MCHC 37.8 g/dL (32-36) H 02/17/21 00:10 RDW Std Deviation 40.9 fL (36.4-46.3) 02/17/21 00:10 RDW Coeff of Gabbi 12.7 % (11.5-14.5) 02/17/21 00:10 Plt Count 254 K/uL (130-400) 02/17/21 00:10 MPV 8.5 fL (7.4-10.4) 02/17/21 00:10 Immature Gran % (Auto) 0.4 % 02/17/21 00:10 Neut % (Auto) 64.2 % 02/17/21 00:10 Lymph % (Auto) 20.8 % 02/17/21 00:10 Hendry % (Auto) 12.6 % 02/17/21 00:10 Eos % (Auto) 2.0 % 02/17/21 00:10 Baso % (Auto) 0.0 % 02/17/21 00:10 Neut # (Auto) 5.49 K/uL (1.4-6.5) 02/17/21 00:10 Lymph # (Auto) 1.78 K/uL (1.2-3.4) 02/17/21 00:10 Hendry # (Auto) 1.08 K/uL (0.11-0.59) H 02/17/21 00:10 Eos # (Auto) 0.17 K/uL (0-0.5) 02/17/21 00:10 Baso # (Auto) 0.00 K/uL (0-0.2) 02/17/21 00:10 Immature Gran # (Auto) 0.03 K/uL (0.00-0.02) H 02/17/21 00:10 ESR 4 mm/hr (0-20) 02/17/21 00:10 Sodium 124 mmol/L (136-145) L 02/17/21 00:10 Potassium 3.4 mmol/L (3.5-5.1) L 02/17/21 00:10 Chloride 89 mmol/L (98-107) L 02/17/21 00:10 Carbon Dioxide 28 mmol/L (21-32) 02/17/21 00:10 Anion Gap 7.0 (3-11) 02/17/21 00:10 BUN 6 mg/dl (7-18) L 02/17/21 00:10 Creatinine 0.85 mg/dl (0.6-1.4) 02/17/21 00:10 Est Cr Clr Drug Dosing 79.8 ml/min 02/17/21 00:10 Est GFR ( Amer) 100.2 ml/min 02/17/21 00:10 Est GFR (Non-Af Amer) 86.4 ml/min 02/17/21 00:10 BUN/Creatinine Ratio 7.7 (10-20) L 02/17/21 00:10 Glucose 80 mg/dl (70-99) 02/17/21 00:10 Osmolality 256 mOsm/kg (280-300) L 02/17/21 00:10 Calcium 8.5 mg/dl (8.5-10.1) 02/17/21 00:10 Phosphorus 3.1 mg/dl (2.5-4.9) 02/17/21 00:10 Magnesium 1.4 mg/dl (1.8-2.4) L 02/17/21 00:10 Total Bilirubin 0.6 mg/dl (0.2-1) 02/17/21 00:10 Direct Bilirubin 0.2 mg/dl (0-0.2) 02/17/21 00:10 AST 27 U/L (15-37) 02/17/21 00:10 ALT 22 U/L (12-78) 02/17/21 00:10 Alkaline Phosphatase 69 U/L (45-117) 02/17/21 00:10 Total Creatine Kinase 555 U/L (39-308) H 02/17/21 00:10 Troponin I < 0.015 ng/ml (0-0.045) 02/17/21 00:10 Total Protein 7.1 gm/dl (6.4-8.2) 02/17/21 00:10 Albumin 3.8 gm/dl (3.4-5.0) 02/17/21 00:10 Lipase 132 U/L (73-393) 02/17/21 00:10 Urine Color Yellow 02/17/21 01:52 Urine Appearance Clear (Clear) 02/17/21 01:52 Urine pH 6.5 (4.5-7.5) 02/17/21 01:52 Ur Specific [place] 1.005 (1.000-1.030) 02/17/21 01:52 Urine Protein Negative (Negative) 02/17/21 01:52 Urine Glucose (UA) Negative (Negative) 02/17/21 01:52 Urine Ketones Negative (Negative) 02/17/21 01:52 Urine Blood Negative (Negative) 02/17/21 01:52 Urine Nitrite Negative (Negative) 02/17/21 01:52 Urine Bilirubin Negative (Negative) 02/17/21 01:52 Urine Urobilinogen Negative (Negative) 02/17/21 01:52 Ur Leukocyte Esterase Negative (Negative) 02/17/21 01:52 Urine Osmolality 141 mOsm/kg (500-800) L 02/17/21 01:52 Valproic Acid 94 mcg/ml (50-100) 02/17/21 00:10 COVID-19 Eval Order Covid19 at [facility] 02/17/21 00:25 SARS-CoV-2 (PCR) NEGATIVE (Negative) 02/17/21 00:25 Diagnostic Findings [facility] Patient: JOHN SIM (Male) : 46 Status: ER Date: 02/17/21 01:12 Room #: History: FALL, PT STATES HE DID NOT HIT HIS HEAD, FREQUENT FALLS Slices: 66 Priors: Tech: Chuy Saini @ [phone] Exams: CT HEAD Contrast: Accession Numbers: [id number] Referring Physician: JO KERR Preliminary Findings Only See Final Report For Complete Findings CT HEAD: Mild volume loss. Mineral chronic ischemic changes. No mass, hemorrhage or acute infarct. Suggestion of a high right portal scalp contusion. Sinuses, mastoids and bones are intact. Impression: No acute intercranial findings. Possible scalp contusion. Radiologist: Vinicio Mensah M.D. Study ready at 01:13 and initial results transmitted at 01:26 *This report constitutes a preliminary interpretation only. Non-acute findings felt to be unrelated to the clinical presentation may not be discussed in this report. The study will be interpreted and a final report will be generated by the local Radiologist the following shift. To reach the [facility] radiology d epartment call [phone]. If a discrepancy is found between the preliminary and final interpretations of this study, please notify us via our Client Portal at [email or web address] QA Exams.You can also fax this report with a description of the discrepancy, or include the final report, to our daytime fax number [phone].If faxing, please indicate the severity of discrepancy using one of the following categories: [ ] 1 - Agree/Informational [ ] 2 - Unlikely to Affect Management [ ] 3 - Possible Eventual Change of Management [ ] 4 - Probable Immediate Change of Management For all other patient related information, please fax us at [phone]. [id number] Code Status & VTE Plan Code Status Full code VTE Prophylaxis Plan VTE Prophylaxis will be ordered: Yes PG Care Time/CCT Total # of Minutes Spent Total Time Spent with Patient: Total time spent is greater than 50% in coordination of care (as documented) at patient's floor/unit and/or counseling patient: Coding Level of Care Code 57183 Initial Inpt Care Lvl 3 Diagnoses Balance disorder R26.89 Hyponatremia E87.1 Diabetic peripheral neuropathy E11.42 Schizophrenia F20.9 Bipolar I disorder, single manic episode F30.9 Dyslipidemia E78.5 HTN (hypertension) I10 Atrial bigeminy I49.8 Atrial trigeminy R00.8 Frequent falls R29.6 Uncontrolled type 2 diabetes mellitus with neurologic complication E11.49; E11.65 Hypomagnesemia E83.42 Hypokalemia E87.6
[2021-02-17] MEDS ORDERED: MAGNESIUM SULFATE / D5W 1 GM/100 ML BAG IV STA (02:25)
[2021-02-17] MEDS ORDERED: ONDANSETRON INJ 2 MG/ML 2 ML VIAL IV PRN (03:45)
[2021-02-17] MEDS ORDERED: ACETAMINOPHEN 325 MG TAB PO PRN (03:45)
[2021-02-17] MEDS ORDERED: POTASSIUM CHLORIDE / WTR 10 MEQ/100 ML PLCT IV ONE (04:00)
[2021-02-17] MEDS ORDERED: GLUCAGON FOR INJ 1 MG VIAL SQ PRN (05:02)
[2021-02-17] MEDS ORDERED: GLUCOSE 40% GEL 15 GM TUBE PO PRN (05:02)
[2021-02-17] MEDS ORDERED: CARBOHYDRATES FOR HYPOGLYCEMIA PO PRN (05:02)
[2021-02-17] MEDS ORDERED: DEXTROSE 50% 50 ML SYRINGE IV PRN (05:02)
[2021-02-17] MEDS ORDERED: GLUCOSE 10 TABS/TUBE PO PRN (05:02)
[2021-02-17] MEDS: MAGNESIUM SULFATE / D5W 1 GM/100 ML BAG IV SCH ×2 (05:39→07:38)
--- NOTE | 2021-02-17 07:33 | CT Scan Report ---
HEAD CT NONCONTRAST CT DOSE: 614.27 mGy.cm HISTORY: fall, weakness TECHNIQUE: Multiaxial CT images of the head were performed without the use of intravenous contrast. A utomated exposure control was utilized for this study. A dose lowering technique was utilized adheri ng to the principles of ALARA. Comparison: 02/25/2020. Findings: The paranasal sinuses and mastoid air cells are clear. The calvarium and skull base are int act. There is no mass, hematoma, midline shift, acute infarct. White matter hypodensity is nonspecifi c but suggestive of microvascular ischemic change. The ventricles and sulci demonstrate mild age-rela owen involutional changes. Mild right parietal scalp swelling. Impression: No acute intracranial abnormality. ACT 112: Negative or not required by law. Electronically signed by: Yakov Mcgraw M.D. 02/17/2021 7:31 AM
--- NOTE | 2021-02-17 07:58 | XRay Report ---
XR pelvis 1-2V routine CLINICAL HISTORY: fall, weakness. Pelvic pain. COMPARISON STUDY: Pelvis 06/22/2019. FINDINGS: No fracture or dislocation within the pelvis or hips. 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 Soft tissues are unremarkable. The sacrum is intact. IMPRESSION: No fractures within the pelvis or hips. ACT 112: Negative or not required by law. Electronically signed by: Yakov Mcgraw M.D. 02/17/2021 7:56 AM
--- NOTE | 2021-02-17 07:59 | XRay Report ---
XR chest 1V portable HISTORY: weakness, fall COMPARISON: Chest CT 01/13/2021. FINDINGS: There are low lung volumes. No pneumothorax. No pleural effusions. The heart is normal in s ize. Mild emphysema persists. Interstitial thickening at the lung bases remains unchanged and likely represents vascular crowding from the emphysema. No new focal lung consolidations. No evidence for pu lmonary edema. There is an old nonunited left clavicle fracture, unchanged. IMPRESSION: No significant change compared to the prior study. No acute process. ACT 112: Negative or not required by law. Electronically signed by: Yakov Mcgraw M.D. 02/17/2021 7:58 AM
[2021-02-17] MEDS: LOSARTAN POTASSIUM 25 MG TAB PO SCH (08:49)
[2021-02-17] MEDS: PARoxetine HCL 10 MG TAB PO SCH (08:49)
[2021-02-17] MEDS: DIVALPROEX EXTENDED RELEASE 500 MG TAB PO SCH ×2 (08:49→20:20)
[2021-02-17] MEDS: FUROSEMIDE 40 MG TAB PO SCH (08:49)
[2021-02-17] MEDS: DIVALPROEX EXTENDED RELEASE 250 MG TABCR PO SCH ×2 (08:50→20:20)
[2021-02-17] MEDS: CHOLECALCIFEROL 1,000 UNITS 25 MCG TAB PO SCH (08:50)
[2021-02-17] MEDS: CYANOCOBALAMIN 500 MCG TABLET (VITAMIN B-12) PO SCH (08:50)
[2021-02-17] MEDS: VITAMIN B COMPLEX TAB PO SCH (08:50)
[2021-02-17] MEDS: OLANZapine 10 MG TAB PO SCH (08:50)
[2021-02-17] MEDS: UMECLIDINIUM BROMIDE 62.5MCG/BLISTER 7 PUFFS/INHALER INH SCH (08:51)
[2021-02-17] MEDS: ASPIRIN 81 MG ECTAB PO SCH (08:51)
[2021-02-17] MEDS: INSULIN ASPART 100 UNITS/ML 3 ML PEN SC SCH ×4 (08:52→20:46)
[2021-02-17] MEDS: HEPARIN SOD 5,000 UNIT/0.5 ML VIAL SQ SCH ×2 (08:53→20:21)
--- NOTE | 2021-02-17 09:48 | Electrocardiogram Report ---
Test Reason : Blood Pressure : / mmHG Vent. Rate : 091 BPM Atrial Rate : 122 BPM P-R Int : 000 ms QRS Dur : 132 ms QT Int : 408 ms P-R-T Axes : 067 -66 077 degrees QTc Int : 501 ms Sinus rhythm with frequent Premature atrial complexes in a pattern of bigeminy Left axis deviation Non-specific intra-ventricular conduction block Abnormal ECG When compared with ECG of 25-FEB-2020 15:07, Premature atrial complexes now present Confirmed by Marc Mazariegos ([id number]) on 02/17/2021 9:48:35 AM Referred By: REFERRED SELF Confirmed By:Marc Mazariegos
[2021-02-17 10:04] LABS: BUN Creatinine Ratio 7.5 (10-20); Calcium 8.3 mg/dl (8.5-10.1); Creatinine Clr Calc Pharmacy 85.3 ml/min; Est GFR (African American) 103.8 ml/min; Est GFR (Non-African American) 89.6 ml/min; Potassium 3.6 mmol/L (3.5-5.1)
--- NOTE | 2021-02-17 12:36 | History & Physical Bridge Note ---
Date of Service February 17, 2021 History & Physical Bridge Note I have examined the patient, reviewed the History & Physical and in the interval since the performance of the History & Physical I have noted the following changes of clinical significance: no changes noted 71yo M w/ hx of many falls at home (he reports at least 20-30) who presents with continued falls and hyponatremia. His baseline train of thought is hard to know given his psychiatric history, but overall he does not appear to be having any symptoms from his worse hyponatremia. 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 This could likely be from his psychiatric medications. He is being followed for a pulmonary nodule, but last CT chest in 12/2020 showed this was decreasing in size and unlikely to be cancer. In any event, given the lack of present symptoms, will continue his water restriction and encourage good solute intake. Given his many falls at home, will get PT/OT. Will get B12 with labs tomorrow.
[2021-02-17] MEDS: OLANZapine 5 MG TABLET PO SCH (20:22)
[2021-02-17 22:42] LABS: BUN Creatinine Ratio 15.3 (10-20); Calcium 8.3 mg/dl (8.5-10.1); Creatinine Clr Calc Pharmacy 70.1 ml/min; Est GFR (African American) 91.7 ml/min; Est GFR (Non-African American) 79.1 ml/min
[2021-02-18 06:46] LABS: Basophils # (auto) 0.01 K/uL (0-0.2); Basophils % (auto) 0.2 %; Eosinophils % (auto) 3.2 %; Hematocrit (blood only) 37.1 % (42-52); Hemoglobin 13.4 g/dL (14.0-18.0); Immature Granulocytes # (auto) 0.01 K/uL (0.00-0.02); Immature Granulocytes % (auto) 0.2 %; Lymphocytes # (auto) 2.33 K/uL (1.2-3.4); Mean Corpuscular Hemoglobin 31.9 pg (25-34); Mean Corpuscular Hgb Conc 36.1 g/dL (32-36); Mean Corpuscular Volume 88.3 fL (80-100); Mean Platelet Volume 8.7 fL (7.4-10.4); Monocytes # (auto) 0.72 K/uL (0.11-0.59); Monocytes % (auto) 11.4 %; Neutrophils # (auto) 3.02 K/uL (1.4-6.5); Platelet Count 246 K/uL (130-400); RDW Standard Deviation 41.7 fL (36.4-46.3); White Blood Count 6.29 K/uL (4.8-10.8)
[2021-02-18 07:47] LABS: Albumin Level 3.1 gm/dl (3.4-5.0); BUN Creatinine Ratio 14.3 (10-20); Calcium 8.6 mg/dl (8.5-10.1); Creatinine Clr Calc Pharmacy 91.6 ml/min; Est GFR (African American) 106.7 ml/min; Magnesium 1.6 mg/dl (1.8-2.4); Potassium 3.9 mmol/L (3.5-5.1)
[2021-02-18 07:50] LABS: Albumin Globulin Ratio 0.9 (0.9-2); Bilirubin,Total 0.4 mg/dl (0.2-1); Globulin 3.3 gm/dl (2.5-4.0); Total Protein 6.4 gm/dl (6.4-8.2)
[2021-02-18 07:53] LABS: Folate (Folic Acid) 10.6 ng/ml (>5.38)
--- NOTE | 2021-02-18 08:35 | Hospitalist Progress Note ---
Date of Service February 18, 2021 Assessment & Plan (1) Balance disorder: Plan: Balance disorder/frequent falls- Multifactorial: Deconditioning, medication related, diabetic peripheral neuropathy, hyponatremia, others Patient's living arrangements will need to be assessed prior to discharge to see if he is still acceptable to return to living at home by himself. He reportedly has people checking in on him on a regular basis (2) Hyponatremia: Plan: Sodium is increasing Suggestion of excess fluid intake/psychogenic polydipsia Fluid restriction to 1200 cc daily. (3) Diabetic peripheral neuropathy: Plan: Hold glipizide and Metformin Placed on Accu-Cheks before meals and at bedtime with NovoLog coverage per scale Check hemoglobin A1c (4) Schizophrenia: Plan: Continue usual medications (5) Bipolar I disorder, single manic episode: Plan: Continue usual medications (6) Dyslipidemia: Plan: Reported in history of been on no specific treatment (7) HTN (hypertension): Plan: Hypertension/atrial bigeminy/atrial trigeminy- replete electrolytes (8) Atrial bigeminy: Plan: See above (9) Frequent falls: Plan: Multifactorial as above. Consult PT/OT Admission and Anticipated Discharge Date Admission Date: February 17, 2021 Subjective pt is improving, he is minorly confused but he seems to be returning to baseline Review of Systems Review of Systems: Mild distress and fatigue no headache, no visual changes no speech or swallowing issues no chest pain, pressure or palpitations no shortness of breath, cough or wheezes no abdominal pain, nausea or vomiting, diarrhea or constipation no dysuria, hematuria or frequency no focal joint pain or swelling no back pain, CVA tenderness or radicular pain no bruising, bleeding or rashes no focal signs of weakness or numbness or altered sensation no complaints of anxiety or depression.. Physical Exam Physical Exam: The patient appeared well nourished and normally developed. Vital signs as documented. Head exam is normocephalic atraumatic Neck is without JVD, thyromegaly, or carotid bruits. Lungs are clear to auscultation, no focal loss of breath sounds Cardiac exam, Rhythm is regular. murmurs, rubs or gallops. Abdominal exam reveals normal bowel sounds, soft non tender, no masses Extremities are trace edematous and both pedal pulses are present Neurologic exam is alert and oriented, no focal loss of strength or sensation Skin is without bruises or rashes Psychologically is without concerns for anxiety or depression Results & Data Results & Data ([facility]) Vital Signs (Past 12 Hours) Vital Signs Temp Pulse Pulse Resp BP Pulse Ox 02/18/21 07:29 70 02/18/21 03:11 97.7 F 70 18 121/68 90 02/17/21 23:15 97.7 F 67 18 158/91 H 92 02/17/21 22:20 76 PG Care Time/CCT Total # of Minutes Spent Total Time Spent with Patient: Total time spent is greater than 50% in coordination of care (as documented) at patient's floor/unit and/or counseling patient: Coding Level of Care Code 58152 Subseq Hosp Care Lvl 2 Diagnoses Balance disorder R26.89 Hyponatremia E87.1 Diabetic peripheral neuropathy E11.42 Schizophrenia F20.9 Bipolar I disorder, single manic episode F30.9 Dyslipidemia E78.5 HTN (hypertension) I10 Atrial bigeminy I49.8 Frequent falls R29.6
[2021-02-18] MEDS: INSULIN ASPART 100 UNITS/ML 3 ML PEN SC SCH ×4 (09:02→20:19)
[2021-02-18] MEDS: OLANZapine 10 MG TAB PO SCH (09:03)
[2021-02-18] MEDS: CYANOCOBALAMIN 500 MCG TABLET (VITAMIN B-12) PO SCH (09:03)
[2021-02-18] MEDS: ASPIRIN 81 MG ECTAB PO SCH (09:03)
[2021-02-18] MEDS: LOSARTAN POTASSIUM 25 MG TAB PO SCH (09:04)
[2021-02-18] MEDS: VITAMIN B COMPLEX TAB PO SCH (09:04)
[2021-02-18] MEDS: CHOLECALCIFEROL 1,000 UNITS 25 MCG TAB PO SCH (09:04)
[2021-02-18] MEDS: PARoxetine HCL 10 MG TAB PO SCH (09:04)
[2021-02-18] MEDS: FUROSEMIDE 40 MG TAB PO SCH (09:04)
[2021-02-18] MEDS: DIVALPROEX EXTENDED RELEASE 500 MG TAB PO SCH ×2 (09:04→20:16)
[2021-02-18] MEDS: UMECLIDINIUM BROMIDE 62.5MCG/BLISTER 7 PUFFS/INHALER INH SCH (09:05)
[2021-02-18] MEDS: DIVALPROEX EXTENDED RELEASE 250 MG TABCR PO SCH ×2 (09:05→20:16)
[2021-02-18] MEDS: HEPARIN SOD 5,000 UNIT/0.5 ML VIAL SQ SCH ×2 (09:05→20:16)
[2021-02-18] MEDS: OLANZapine 5 MG TABLET PO SCH (20:16)
[2021-02-19 06:29] LABS: Eosinophils # (auto) 0.15 K/uL (0-0.5); Eosinophils % (auto) 2.7 %; Hematocrit (blood only) 39.8 % (42-52); Immature Granulocytes # (auto) 0.01 K/uL (0.00-0.02); Immature Granulocytes % (auto) 0.2 %; Lymphocytes # (auto) 2.53 K/uL (1.2-3.4); Lymphocytes % (auto) 45.7 %; Mean Corpuscular Hemoglobin 31.9 pg (25-34); Mean Corpuscular Hgb Conc 35.2 g/dL (32-36); Mean Corpuscular Volume 90.7 fL (80-100); Mean Platelet Volume 8.8 fL (7.4-10.4); Monocytes % (auto) 10.8 %; Neutrophils # (auto) 2.25 K/uL (1.4-6.5); Neutrophils % (auto) 40.6 %; Platelet Count 269 K/uL (130-400); RDW Coefficient of Variation 13.1 % (11.5-14.5); RDW Standard Deviation 43.3 fL (36.4-46.3); Red Blood Count 4.39 M/uL (4.7-6.1); White Blood Count 5.54 K/uL (4.8-10.8)
[2021-02-19 06:57] LABS: Albumin Level 3.4 gm/dl (3.4-5.0); BUN Creatinine Ratio 17.9 (10-20); Calcium 8.9 mg/dl (8.5-10.1); Creatinine Clr Calc Pharmacy 93.9 ml/min; Est GFR (African American) 107.9 ml/min; Est GFR (Non-African American) 93.1 ml/min; Magnesium 1.9 mg/dl (1.8-2.4); Potassium 3.9 mmol/L (3.5-5.1)
[2021-02-19 06:59] LABS: Bilirubin,Total 0.6 mg/dl (0.2-1); Globulin 3.3 gm/dl (2.5-4.0); Total Protein 6.7 gm/dl (6.4-8.2)
[2021-02-19] MEDS: VITAMIN B COMPLEX TAB PO SCH (08:05)
[2021-02-19] MEDS: LOSARTAN POTASSIUM 25 MG TAB PO SCH (08:05)
[2021-02-19] MEDS: CHOLECALCIFEROL 1,000 UNITS 25 MCG TAB PO SCH (08:05)
[2021-02-19] MEDS: DIVALPROEX EXTENDED RELEASE 500 MG TAB PO SCH ×2 (08:06→20:06)
[2021-02-19] MEDS: FUROSEMIDE 40 MG TAB PO SCH (08:06)
[2021-02-19] MEDS: DIVALPROEX EXTENDED RELEASE 250 MG TABCR PO SCH ×2 (08:06→20:06)
[2021-02-19] MEDS: ASPIRIN 81 MG ECTAB PO SCH (08:06)
[2021-02-19] MEDS: CYANOCOBALAMIN 500 MCG TABLET (VITAMIN B-12) PO SCH (08:06)
[2021-02-19] MEDS: PARoxetine HCL 10 MG TAB PO SCH (08:06)
[2021-02-19] MEDS: OLANZapine 10 MG TAB PO SCH (08:07)
[2021-02-19] MEDS: UMECLIDINIUM BROMIDE 62.5MCG/BLISTER 7 PUFFS/INHALER INH SCH (08:08)
[2021-02-19] MEDS: HEPARIN SOD 5,000 UNIT/0.5 ML VIAL SQ SCH ×2 (08:08→20:06)
[2021-02-19] MEDS: INSULIN ASPART 100 UNITS/ML 3 ML PEN SC SCH ×4 (08:42→20:52)
--- NOTE | 2021-02-19 14:40 | Hospitalist Progress Note ---
Date of Service February 19, 2021 Assessment & Plan (1) Balance disorder: Plan: Balance disorder/frequent falls- Multifactorial: Deconditioning, medication related, diabetic peripheral neuropathy, hyponatremia, others This patient is cared for by [facility] is fairly homebound getting his food from the food bank but does demonstrate over the last few weeks inability to care for himself with inability to care for his location and also feed and dress himself. 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 (2) Hyponatremia: Plan: Sodium is increasing Suggestion of excess fluid intake/psychogenic polydipsia Fluid restriction to 1200 cc daily. Patient seems to lack insight on to what types of fluids to drink (3) Diabetic peripheral neuropathy: Plan: Hold glipizide and Metformin Placed on Accu-Cheks before meals and at bedtime with NovoLog coverage per scale pending hemoglobin A1c (4) Schizophrenia: Plan: Continue usual medications (5) Bipolar I disorder, single manic episode: Plan: Continue usual medications (6) Dyslipidemia: Plan: Reported in history of been on no specific treatment (7) HTN (hypertension): Plan: Hypertension/atrial bigeminy/atrial trigeminy- replete electrolytes (8) Atrial bigeminy: Plan: See above (9) Frequent falls: Plan: Multifactorial as above. Consult PT/OT, lay dexter need snf Admission and Anticipated Discharge Date Admission Date: February 17, 2021 Subjective pt is pleasant and cooperative, pt has no focal complaints Review of Systems Review of Systems: Mild distress and fatigue no headache, no visual changes no speech or swallowing issues no chest pain, pressure or palpitations no shortness of breath, cough or wheezes no abdominal pain, nausea or vomiting, diarrhea or constipation no dysuria, hematuria or frequency no focal joint pain or swelling no back pain, CVA tenderness or radicular pain no bruising, bleeding or rashes no focal signs of weakness or numbness or seems to have a lethargy does have some memory loss and developmental delay Physical Exam Physical Exam: The patient appeared chronically ill and mentally limited Vital signs as documented. Head exam is normocephalic atraumatic Neck is without JVD, thyromegaly, or carotid bruits. Lungs are clear to auscultation, no focal loss of breath sounds Cardiac exam, Rhythm is regular.. No murmurs, rubs or gallops. Abdominal exam reveals normal bowel sounds, soft non tender, no masses Extremities are trace edematous and both pedal pulses are present Neurologic exam is alert and oriented, no focal loss of strength or sensation, globally weak Skin is without bruises or rashes Psychologically is with concern for cognitive imparement Results & Data Results & Data ([facility]) Vital Signs (Past 12 Hours) Vital Signs Temp Pulse Pulse Resp BP Pulse Ox 02/19/21 12:34 97.9 F 57 L 18 151/76 H 02/19/21 08:27 97.5 F L 74 20 155/83 H 98 02/19/21 07:06 71 02/19/21 03:14 97.7 F 71 17 165/78 H 95 PG Care Time/CCT Total # of Minutes Spent Total Time Spent with Patient: Total time spent is greater than 50% in coordination of care (as documented) at patient's floor/unit and/or counseling patient: Coding Level of Care Code 09039 Subseq Hosp Care Lvl 2 Diagnoses Balance disorder R26.89 Hyponatremia E87.1 Diabetic peripheral neuropathy E11.42 Schizophrenia F20.9 Bipolar I disorder, single manic episode F30.9 Dyslipidemia E78.5 HTN (hypertension) I10 Atrial bigeminy I49.8 Frequent falls R29.6
[2021-02-19] MEDS: OLANZapine 5 MG TABLET PO SCH (20:06)
[2021-02-20] MEDS: CHOLECALCIFEROL 1,000 UNITS 25 MCG TAB PO SCH (08:32)
[2021-02-20] MEDS: VITAMIN B COMPLEX TAB PO SCH (08:32)
[2021-02-20] MEDS: PARoxetine HCL 10 MG TAB PO SCH (08:32)
[2021-02-20] MEDS: LOSARTAN POTASSIUM 25 MG TAB PO SCH (08:32)
[2021-02-20] MEDS: ASPIRIN 81 MG ECTAB PO SCH (08:32)
[2021-02-20] MEDS: FUROSEMIDE 40 MG TAB PO SCH (08:32)
[2021-02-20] MEDS: DIVALPROEX EXTENDED RELEASE 500 MG TAB PO SCH ×2 (08:33→20:36)
[2021-02-20] MEDS: CYANOCOBALAMIN 500 MCG TABLET (VITAMIN B-12) PO SCH (08:33)
[2021-02-20] MEDS: DIVALPROEX EXTENDED RELEASE 250 MG TABCR PO SCH ×2 (08:33→20:36)
[2021-02-20] MEDS: OLANZapine 10 MG TAB PO SCH (08:33)
[2021-02-20] MEDS: INSULIN ASPART 100 UNITS/ML 3 ML PEN SC SCH ×4 (08:35→20:37)
[2021-02-20] MEDS: UMECLIDINIUM BROMIDE 62.5MCG/BLISTER 7 PUFFS/INHALER INH SCH (08:36)
[2021-02-20] MEDS: HEPARIN SOD 5,000 UNIT/0.5 ML VIAL SQ SCH ×2 (08:36→20:37)
[2021-02-20 13:01] LABS: BUN Creatinine Ratio 16.5 (10-20); Calcium 9.5 mg/dl (8.5-10.1); Creatinine Clr Calc Pharmacy 76.5 ml/min; Est GFR (African American) 99.2 ml/min; Est GFR (Non-African American) 85.6 ml/min; Potassium 4.2 mmol/L (3.5-5.1)
--- NOTE | 2021-02-20 20:33 | Hospitalist Progress Note ---
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 Fluid restriction at 1200 cc daily could be difficult to manage outside of hospital if he has access to any fluids he wants (3) Diabetic peripheral neuropathy: Plan: Hold glipizide and Metformin Placed on Accu-Cheks before meals and at bedtime with NovoLog coverage per scale monitor for hypoglycemia (4) Schizophrenia: Plan: Continue usual medications (5) Bipolar I disorder, single manic episode: Plan: Continue usual medications (6) Dyslipidemia: Plan: Reported in history of been on no specific treatment (7) HTN (hypertension): Plan: Hypertension/atrial bigeminy/atrial trigeminy- replete electrolytes (8) Atrial bigeminy: Plan: See above (9) Frequent falls: Plan: Multifactorial as above. Consult PT/OT, working on rehab placement Admission and Anticipated Discharge Date Admission Date: February 17, 2021 Subjective patient very pleasant, appreciative of his care he says his balance and strength are still poor, he would like to go to rehab CM working on getting him to personal alf after rehab reviewed chart labs today show Na is up to 134 patient denies fever, chills, sweats, cough, chest pain, dyspnea + dizziness and weakness Review of Systems Review of Systems: All systems reviewed & are unremarkable except as noted in Subjective Physical Exam Constitutional: well developed, well nourished, + disheveled, cooperative and comfortable; no acute distress Neck: trachea midline, no thyromegaly Respiratory: normal respiratory effort, lungs clear to auscultation Cardiovascular: RRR, no murmur, no edema Gastrointestinal (Abdomen): normal bowel sounds, soft, nontender, no hepatosplenomegaly Musculoskeletal: no cyanosis or clubbing, extremities motor strength 5/5 Skin: no rashes, warm and dry Neurologic: CN's II-XI intact bilaterally, moves all extremities and awake; no focal motor deficits Motor/Sensory: no tremor, normal movement and no pronator drift Gait: + staggering gait Psychiatric: Orientation: alert and oriented x 3 Estimated Intelligence: + below average estimated intelligence Results & Data Results & Data ([facility]) Vital Signs (Past 12 Hours) Vital Signs Temp Pulse Pulse Pulse Resp BP BP 02/20/21 19:15 37.1 C 81 20 130/76 02/20/21 16:00 36.5 C 88 18 133/64 02/20/21 15:45 102 H 02/20/21 11:54 36.9 C 58 L 16 131/79 Pulse Ox 02/20/21 19:15 96 02/20/21 16:00 99 02/20/21 15:45 02/20/21 11:54 92 Laboratory Results Laboratory Results - last 24 hr 02/20/21 02/20/21 02/20/21 07:36 07:51 11:30 Sodium Potassium Chloride Carbon Dioxide Anion Gap BUN Creatinine Est Cr Clr Drug Dosing Est GFR ( Amer) Est GFR (Non-Af Amer) BUN/Creatinine Ratio Glucose POC Glucose 127 H 123 H Calcium Magnesium 1.9 02/20/21 02/20/21 02/20/21 12:27 16:30 20:18 Sodium 134 L Potassium 4.2 Chloride 98 Carbon Dioxide 29 Anion Gap 7.0 BUN 14 Creatinine 0.87 Est Cr Clr Drug Dosing 76.5 Est GFR ( Amer) 99.2 Est GFR (Non-Af Amer) 85.6 BUN/Creatinine Ratio 16.5 Glucose 122 H POC Glucose 111 H 209 H Calcium 9.5 Magnesium Medications Administered Current Inpatient Medications Acetaminophen (Acetaminophen 325 Mg Tab) 650 mg PO Q4H PRN PRN Reason: Pain or Fever Stop: 03/19/21 03:44 Last Admin: 02/17/21 04:41 Dose: 650 mg Documented by: Aspirin (Aspirin 81 Mg Ectab) 81 mg PO [facility] Stop: 03/19/21 08:59 Last Admin: 02/20/21 08:32 Dose: 81 mg Documented by: Cyanocobalamin (Cyanocobalamin 500 Mcg Tablet (Vitamin B-12)) 1,000 mcg PO [facility] Stop: 03/19/21 08:59 Last Admin: 02/20/21 08:33 Dose: 1,000 mcg Documented by: Dextrose (Dextrose 50% 50 Ml Syringe) 25 - 50 ml IV UD PRN; Protocol PRN Reason: Hypoglycemia Protocol Stop: 03/19/21 05:01 Divalproex Sodium (Divalproex Extended Release 250 Mg Tabcr) 250 mg PO BID [facility] Stop: 03/19/21 08:59 Last Admin: 02/20/21 08:33 Dose: 250 mg Documented by: Divalproex Sodium (Divalproex Extended Release 500 Mg Tab) 500 mg PO BID [facility] Stop: 03/19/21 08:59 Last Admin: 02/20/21 08:33 Dose: 500 mg Documented by: Furosemide (Furosemide 40 Mg Tab) 40 mg PO DAILY [facility] Stop: 03/19/21 08:59 Last Admin: 02/20/21 08:32 Dose: 40 mg Documented by: Glucagon (Glucagon For Inj 1 Mg Vial) 1 mg SQ UD PRN; Protocol PRN Reason: Hypoglycemia Protocol Stop: 03/19/21 05:01 Glucose (Glucose 10 Tabs/Tube) 4 - 8 tabs PO UD PRN; Protocol PRN Reason: Hypoglycemia Protocol Stop: 03/19/21 05:01 Glucose (Glucose 40% Gel 15 Gm Tube) 15 - 30 gm PO UD PRN; Protocol PRN Reason: Hypoglycemia Protocol Stop: 03/19/21 05:01 Heparin Sodium (Porcine) (Heparin Sod 5,000 Unit/0.5 Ml Vial) 5,000 units SQ Q12 [facility] Stop: 03/19/21 08:59 Last Admin: 02/20/21 08:36 Dose: 5,000 units Documented by: Insulin Aspart (Insulin Aspart 100 Units/Ml 3 Ml Pen) 0 units SC ACHS [facility] Stop: 03/19/21 07:29 Last Admin: 02/20/21 17:14 Dose: 2 units Documented by: Losartan Potassium (Losartan Potassium 25 Mg Tab) 25 mg PO DAILY [facility] Stop: 03/19/21 08:59 Last Admin: 02/20/21 08:32 Dose: 25 mg Documented by: Miscellaneous (Carbohydrates For Hypoglycemia ) 15 - 30 gm PO UD PRN PRN Reason: Hypoglycemia Protocol Stop: 03/19/21 05:01 Olanzapine (Olanzapine 10 Mg Tab) 10 mg PO QAM [facility] Stop: 03/19/21 08:59 Last Admin: 02/20/21 08:33 Dose: 10 mg Documented by: Olanzapine (Olanzapine 5 Mg Tablet) 15 mg PO HS [facility] Stop: 03/19/21 20:59 Last Admin: 02/19/21 20:06 Dose: 15 mg Documented by: Ondansetron HCl (Ondansetron Inj 2 Mg/Ml 2 Ml Vial) 4 mg IV Q6H PRN PRN Reason: Nausea Stop: 03/19/21 03:44 Paroxetine HCl (Paroxetine Hcl 10 Mg Tab) 10 mg PO QAM [facility] Stop: 03/19/21 08:59 Last Admin: 02/20/21 08:32 Dose: 10 mg Documented by: Umeclidinium [place] (Umeclidinium [place] 62.5mcg/Blister 7 Puffs/Inhaler) 1 puffs INH DAILY [facility] Stop: 03/19/21 08:59 Last Admin: 02/20/21 08:36 Dose: 1 puffs Documented by: Vitamin B Complex (Vitamin B Complex Tab) 1 tab PO QAM [facility] Stop: 03/19/21 08:59 Last Admin: 02/20/21 08:32 Dose: 1 tab Documented by: Vitamin D (Cholecalciferol 1,000 Units 25 Mcg Tab) 1,000 units PO QAM [facility] Stop: 03/19/21 08:59 Last Admin: 02/20/21 08:32 Dose: 1,000 units Documented by: PG Care Time/CCT Total # of Minutes Spent Total Time Spent with Patient: Total time spent is greater than 50% in coordination of care (as documented) at patient's floor/unit and/or counseling patient: Coding Level of Care Code 24557 Subseq Hosp Care Lvl 2 Diagnoses Balance disorder R26.89 Hyponatremia E87.1 Diabetic peripheral neuropathy E11.42 Schizophrenia F20.9 Bipolar I disorder, single manic episode F30.9 Dyslipidemia E78.5 HTN (hypertension) I10 Atrial bigeminy I49.8 Frequent falls R29.6
[2021-02-20] MEDS: OLANZapine 5 MG TABLET PO SCH (20:36)
[2021-02-21] MEDS: DIVALPROEX EXTENDED RELEASE 500 MG TAB PO SCH ×2 (08:02→20:44)
[2021-02-21] MEDS: FUROSEMIDE 40 MG TAB PO SCH (08:02)
[2021-02-21] MEDS: VITAMIN B COMPLEX TAB PO SCH (08:02)
[2021-02-21] MEDS: CHOLECALCIFEROL 1,000 UNITS 25 MCG TAB PO SCH (08:02)
[2021-02-21] MEDS: CYANOCOBALAMIN 500 MCG TABLET (VITAMIN B-12) PO SCH (08:02)
[2021-02-21] MEDS: ASPIRIN 81 MG ECTAB PO SCH (08:02)
[2021-02-21] MEDS: DIVALPROEX EXTENDED RELEASE 250 MG TABCR PO SCH ×2 (08:02→20:44)
[2021-02-21] MEDS: LOSARTAN POTASSIUM 25 MG TAB PO SCH (08:03)
[2021-02-21] MEDS: UMECLIDINIUM BROMIDE 62.5MCG/BLISTER 7 PUFFS/INHALER INH SCH (08:03)
[2021-02-21] MEDS: OLANZapine 10 MG TAB PO SCH (08:03)
[2021-02-21] MEDS: HEPARIN SOD 5,000 UNIT/0.5 ML VIAL SQ SCH ×2 (08:03→20:43)
[2021-02-21] MEDS: PARoxetine HCL 10 MG TAB PO SCH (08:03)
[2021-02-21] MEDS: INSULIN ASPART 100 UNITS/ML 3 ML PEN SC SCH ×4 (08:08→20:44)
--- NOTE | 2021-02-21 09:43 | Hospitalist Progress Note ---
Date of Service February 21, 2021 Assessment & Plan (1) Balance disorder: Plan: Balance disorder/frequent falls- Multifactorial: Deconditioning, medication related, diabetic peripheral neuropathy, hyponatremia, others This patient is cared for by lázaro pham is fairly homebound getting his food from the food bank but does demonstrate over the last few weeks inability to care for himself plan for SNF rehab to get stronger eventually plan for personal snf (2) Hyponatremia: Plan: Sodium steadily improving, up to 134 yesterday Suggestion of excess fluid intake/psychogenic polydipsia continue Fluid restriction at 1200 cc daily could be difficult to manage outside of hospital if he has access to any fluids he wants he admits to drinking a lot of fluids, says he can drink 1/2 a case of diet Pepsi a day (3) Diabetic peripheral neuropathy: Plan: Hold glipizide and Metformin Placed on Accu-Cheks before meals and at bedtime with NovoLog coverage per scale monitor for hypoglycemia (4) Schizophrenia: Plan: Continue usual medications (5) Bipolar I disorder, single manic episode: Plan: Continue usual medications (6) Dyslipidemia: Plan: Reported in history of been on no specific treatment (7) HTN (hypertension): Plan: Hypertension/atrial bigeminy/atrial trigeminy- replete electrolytes (8) Atrial bigeminy: Plan: See above (9) Frequent falls: Plan: Multifactorial as above. Consult PT/OT, working on rehab placement Admission and Anticipated Discharge Date Admission Date: February 17, 2021 Subjective doing great, eating well plan for SNF tomorrow admits to weakness and dizziness but getting better Review of Systems Review of Systems: All systems reviewed & are unremarkable except as noted in Subjective Physical Exam Constitutional: well developed, well nourished, + disheveled, cooperative and comfortable; no acute distress Neck: trachea midline, no thyromegaly Respiratory: normal respiratory effort, lungs clear to auscultation Cardiovascular: RRR, no murmur, no edema Gastrointestinal (Abdomen): normal bowel sounds, soft, nontender, no hepatosplenomegaly Musculoskeletal: no cyanosis or clubbing, extremities motor strength 5/5 Skin: no rashes, warm and dry Neurologic: CN's II-XI intact bilaterally, moves all extremities and awake; no focal motor deficits Motor/Sensory: no tremor, normal movement and no pronator drift Gait: + staggering gait Psychiatric: Orientation: alert and oriented x 3 Estimated Intelligence: + below average estimated intelligence Results & Data Results & Data ([facility]) Vital Signs (Past 12 Hours) Vital Signs Temp Pulse Pulse Resp BP Pulse Ox 02/21/21 07:43 36.7 C 66 18 165/76 H 95 02/21/21 07:27 92 H 02/21/21 03:20 36.6 C 85 20 177/87 H 95 02/20/21 23:16 36.9 C 73 20 155/76 H 93 02/20/21 22:25 81 Laboratory Results Laboratory Results - last 24 hr 02/20/21 02/20/21 02/20/21 11:30 12:27 16:30 Sodium 134 L Potassium 4.2 Chloride 98 Carbon Dioxide 29 Anion Gap 7.0 BUN 14 Creatinine 0.87 Est Cr Clr Drug Dosing 76.5 Est GFR ( Amer) 99.2 Est GFR (Non-Af Amer) 85.6 BUN/Creatinine Ratio 16.5 Glucose 122 H POC Glucose 123 H 111 H Calcium 9.5 02/20/21 02/21/21 20:18 08:00 Sodium Potassium Chloride Carbon Dioxide Anion Gap BUN Creatinine Est Cr Clr Drug Dosing Est GFR ( Amer) Est GFR (Non-Af Amer) BUN/Creatinine Ratio Glucose POC Glucose 209 H 123 H Calcium Medications Administered Current Inpatient Medications Acetaminophen (Acetaminophen 325 Mg Tab) 650 mg PO Q4H PRN PRN Reason: Pain or Fever Stop: 03/19/21 03:44 Last Admin: 02/17/21 04:41 Dose: 650 mg Documented by: Aspirin (Aspirin 81 Mg Ectab) 81 mg PO [facility] Stop: 03/19/21 08:59 Last Admin: 02/21/21 08:02 Dose: 81 mg Documented by: Cyanocobalamin (Cyanocobalamin 500 Mcg Tablet (Vitamin B-12)) [facility] Stop: 03/19/21 08:59 Last Admin: 02/21/21 08:02 Dose: 1,000 mcg Documented by: Dextrose (Dextrose 50% 50 Ml Syringe) 25 - 50 ml IV UD PRN; Protocol PRN Reason: Hypoglycemia Protocol Stop: 03/19/21 05:01 Divalproex Sodium (Divalproex Extended Release 250 Mg Tabcr) 250 mg PO BID [facility] Stop: 03/19/21 08:59 Last Admin: 02/21/21 08:02 Dose: 250 mg Documented by: Divalproex Sodium (Divalproex Extended Release 500 Mg Tab) 500 mg PO BID [facility] Stop: 03/19/21 08:59 Last Admin: 02/21/21 08:02 Dose: 500 mg Documented by: Furosemide (Furosemide 40 Mg Tab) 40 mg PO DAILY [facility] Stop: 03/19/21 08:59 Last Admin: 02/21/21 08:02 Dose: 40 mg Documented by: Glucagon (Glucagon For Inj 1 Mg Vial) 1 mg SQ UD PRN; Protocol PRN Reason: Hypoglycemia Protocol Stop: 03/19/21 05:01 Glucose (Glucose 10 Tabs/Tube) 4 - 8 tabs PO UD PRN; Protocol PRN Reason: Hypoglycemia Protocol Stop: 03/19/21 05:01 Glucose (Glucose 40% Gel 15 Gm Tube) 15 - 30 gm PO UD PRN; Protocol PRN Reason: Hypoglycemia Protocol Stop: 03/19/21 05:01 Heparin Sodium (Porcine) (Heparin Sod 5,000 Unit/0.5 Ml Vial) 5,000 units SQ Q12 [facility] Stop: 03/19/21 08:59 Last Admin: 02/21/21 08:03 Dose: 5,000 units Documented by: Insulin Aspart (Insulin Aspart 100 Units/Ml 3 Ml Pen) 0 units SC ACHS [facility] Stop: 03/19/21 07:29 Last Admin: 02/21/21 08:08 Dose: 2 units Documented by: Losartan Potassium (Losartan Potassium 25 Mg Tab) 25 mg PO DAILY [facility] Stop: 03/19/21 08:59 Last Admin: 02/21/21 08:03 Dose: 25 mg Documented by: Miscellaneous (Carbohydrates For Hypoglycemia ) 15 - 30 gm PO UD PRN PRN Reason: Hypoglycemia Protocol Stop: 03/19/21 05:01 Olanzapine (Olanzapine 10 Mg Tab) 10 mg PO QAM [facility] Stop: 03/19/21 08:59 Last Admin: 02/21/21 08:03 Dose: 10 mg Documented by: Olanzapine (Olanzapine 5 Mg Tablet) 15 mg PO HS [facility] Stop: 03/19/21 20:59 Last Admin: 02/20/21 20:36 Dose: 15 mg Documented by: Ondansetron HCl (Ondansetron Inj 2 Mg/Ml 2 Ml Vial) 4 mg IV Q6H PRN PRN Reason: Nausea Stop: 03/19/21 03:44 Paroxetine HCl (Paroxetine Hcl 10 Mg Tab) 10 mg PO QAM [facility] Stop: 03/19/21 08:59 Last Admin: 02/21/21 08:03 Dose: 10 mg Documented by: Umeclidinium [place] (Umeclidinium [place] 62.5mcg/Blister 7 Puffs/Inhaler) 1 puffs INH DAILY [facility] Stop: 03/19/21 08:59 Last Admin: 02/21/21 08:03 Dose: 1 puffs Documented by: Vitamin B Complex (Vitamin B Complex Tab) 1 tab PO QAM [facility] Stop: 03/19/21 08:59 Last Admin: 02/21/21 08:02 Dose: 1 tab Documented by: Vitamin D (Cholecalciferol 1,000 Units 25 Mcg Tab) 1,000 units PO QAM [facility] Stop: 03/19/21 08:59 Last Admin: 02/21/21 08:02 Dose: 1,000 units Documented by: PG Care Time/CCT Total # of Minutes Spent Total Time Spent with Patient: Total time spent is greater than 50% in coordination of care (as documented) at patient's floor/unit and/or counseling patient: Coding Level of Care Code 95798 Subseq Hosp Care Lvl 2 Diagnoses Balance disorder R26.89 Hyponatremia E87.1 Diabetic peripheral neuropathy E11.42 Schizophrenia F20.9 Bipolar I disorder, single manic episode F30.9 Dyslipidemia E78.5 HTN (hypertension) I10 Atrial bigeminy I49.8 Frequent falls R29.6
[2021-02-21] MEDS: OLANZapine 5 MG TABLET PO SCH (20:44)
[2021-02-22] MEDS: VITAMIN B COMPLEX TAB PO SCH (08:51)
[2021-02-22] MEDS: CHOLECALCIFEROL 1,000 UNITS 25 MCG TAB PO SCH (08:52)
[2021-02-22] MEDS: DIVALPROEX EXTENDED RELEASE 500 MG TAB PO SCH ×2 (08:52→20:16)
[2021-02-22] MEDS: CYANOCOBALAMIN 500 MCG TABLET (VITAMIN B-12) PO SCH (08:52)
[2021-02-22] MEDS: FUROSEMIDE 40 MG TAB PO SCH (08:52)
[2021-02-22] MEDS: LOSARTAN POTASSIUM 25 MG TAB PO SCH (08:52)
[2021-02-22] MEDS: ASPIRIN 81 MG ECTAB PO SCH (08:52)
[2021-02-22] MEDS: OLANZapine 10 MG TAB PO SCH (08:52)
[2021-02-22] MEDS: DIVALPROEX EXTENDED RELEASE 250 MG TABCR PO SCH ×2 (08:52→20:16)
[2021-02-22] MEDS: HEPARIN SOD 5,000 UNIT/0.5 ML VIAL SQ SCH ×2 (08:53→20:17)
[2021-02-22] MEDS: PARoxetine HCL 10 MG TAB PO SCH (08:53)
[2021-02-22] MEDS: UMECLIDINIUM BROMIDE 62.5MCG/BLISTER 7 PUFFS/INHALER INH SCH (08:53)
[2021-02-22] MEDS: INSULIN ASPART 100 UNITS/ML 3 ML PEN SC SCH ×4 (08:55→20:41)
--- NOTE | 2021-02-22 16:39 | Hospitalist Progress Note ---
Date of Service February 22, 2021 Assessment & Plan (1) Balance disorder: Plan: Balance disorder/frequent falls- Multifactorial: Deconditioning, medication related, diabetic peripheral neuropathy, hyponatremia, others This patient is cared for by lázaro pham is fairly homebound getting his food from the food bank but does demonstrate over the last few weeks inability to care for himself plan for SNF rehab to get stronger eventually plan for personal usp (2) Hyponatremia: Plan: Sodium steadily improving, up to 134 8/2 Suggestion of excess fluid intake/psychogenic polydipsia continue Fluid restriction at 1200 cc daily could be difficult to manage outside of hospital if he has access to any fluids he wants he admits to drinking a lot of fluids, says he can drink 1/2 a case of diet Pepsi a day (3) Diabetic peripheral neuropathy: Plan: Hold glipizide and Metformin Placed on Accu-Cheks before meals and at bedtime with NovoLog coverage per scale monitor for hypoglycemia, no episodes, sugars well controlled today (4) Schizophrenia: Plan: Continue usual medications (5) Bipolar I disorder, single manic episode: Plan: Continue usual medications (6) Dyslipidemia: Plan: Reported in history of been on no specific treatment (7) HTN (hypertension): Plan: Hypertension/atrial bigeminy/atrial trigeminy- replete electrolytes (8) Atrial bigeminy: Plan: See above (9) Frequent falls: Plan: Multifactorial as above. Consult PT/OT, working on rehab placement Admission and Anticipated Discharge Date Admission Date: February 17, 2021 Subjective patient doing well again today, no complaints bed available at [facility], awaiting insurance auth eating well, no fever, no chest pain, no dyspnea Review of Systems Review of Systems: All systems reviewed & are unremarkable except as noted in Subjective Physical Exam Constitutional: well developed, well nourished, + disheveled, cooperative and comfortable; no acute distress Neck: trachea midline, no thyromegaly Respiratory: normal respiratory effort, lungs clear to auscultation Cardiovascular: RRR, no murmur, no edema Gastrointestinal (Abdomen): normal bowel sounds, soft, nontender, no hepatosplenomegaly Musculoskeletal: no cyanosis or clubbing, extremities motor strength 5/5 Skin: no rashes, warm and dry Neurologic: CN's II-XI intact bilaterally, moves all extremities and awake; no focal motor deficits Motor/Sensory: no tremor, normal movement and no pronator drift Gait: + staggering gait Psychiatric: Orientation: alert and oriented x 3 Estimated Intelligence: + below average estimated intelligence Results & Data Results & Data ([facility]) Vital Signs (Past 12 Hours) Vital Signs Temp Pulse Resp BP Pulse Ox 02/22/21 14:55 36.8 C 83 18 134/81 96 02/22/21 06:28 36.5 C 90 18 146/82 H 95 Laboratory Results Laboratory Results - last 24 hr 02/21/21 02/21/21 02/22/21 16:42 20:02 07:59 POC Glucose 101 H 151 H 127 H 02/22/21 11:58 POC Glucose 148 H Medications Administered Current Inpatient Medications Acetaminophen (Acetaminophen 325 Mg Tab) 650 mg PO Q4H PRN PRN Reason: Pain or Fever Stop: 03/19/21 03:44 Last Admin: 02/17/21 04:41 Dose: 650 mg Documented by: Aspirin (Aspirin 81 Mg Ectab) 81 mg PO QAM [facility] Stop: 03/19/21 08:59 Last Admin: 02/22/21 08:52 Dose: 81 mg Documented by: Cyanocobalamin (Cyanocobalamin 500 Mcg Tablet (Vitamin B-12)) 1,000 mcg PO QAM [facility] Stop: 03/19/21 08:59 Last Admin: 02/22/21 08:52 Dose: 1,000 mcg Documented by: Dextrose (Dextrose 50% 50 Ml Syringe) 25 - 50 ml IV UD PRN; Protocol PRN Reason: Hypoglycemia Protocol Stop: 03/19/21 05:01 Divalproex Sodium (Divalproex Extended Release 250 Mg Tabcr) 250 mg PO BID [facility] Stop: 03/19/21 08:59 Last Admin: 02/22/21 08:52 Dose: 250 mg Documented by: Divalproex Sodium (Divalproex Extended Release 500 Mg Tab) 500 mg PO BID [facility] Stop: 03/19/21 08:59 Last Admin: 02/22/21 08:52 Dose: 500 mg Documented by: Furosemide (Furosemide 40 Mg Tab) 40 mg PO DAILY [facility] Stop: 03/19/21 08:59 Last Admin: 02/22/21 08:52 Dose: 40 mg Documented by: Glucagon (Glucagon For Inj 1 Mg Vial) 1 mg SQ UD PRN; Protocol PRN Reason: Hypoglycemia Protocol Stop: 03/19/21 05:01 Glucose (Glucose 10 Tabs/Tube) 4 - 8 tabs PO UD PRN; Protocol PRN Reason: Hypoglycemia Protocol Stop: 03/19/21 05:01 Glucose (Glucose 40% Gel 15 Gm Tube) 15 - 30 gm PO UD PRN; Protocol PRN Reason: Hypoglycemia Protocol Stop: 03/19/21 05:01 Heparin Sodium (Porcine) (Heparin Sod 5,000 Unit/0.5 Ml Vial) 5,000 units SQ Q12 [facility] Stop: 03/19/21 08:59 Last Admin: 02/22/21 08:53 Dose: 5,000 units Documented by: Insulin Aspart (Insulin Aspart 100 Units/Ml 3 Ml Pen) 0 units SC ACHS [facility] Stop: 03/19/21 07:29 Last Admin: 02/22/21 13:14 Dose: 3 units Documented by: Losartan Potassium (Losartan Potassium 25 Mg Tab) 25 mg PO DAILY [facility] Stop: 03/19/21 08:59 Last Admin: 02/22/21 08:52 Dose: 25 mg Documented by: Miscellaneous (Carbohydrates For Hypoglycemia ) 15 - 30 gm PO UD PRN PRN Reason: Hypoglycemia Protocol Stop: 03/19/21 05:01 Olanzapine (Olanzapine 10 Mg Tab) 10 mg PO QAM [facility] Stop: 03/19/21 08:59 Last Admin: 02/22/21 08:52 Dose: 10 mg Documented by: Olanzapine (Olanzapine 5 Mg Tablet) 15 mg PO HS [facility] Stop: 03/19/21 20:59 Last Admin: 02/21/21 20:44 Dose: 15 mg Documented by: Ondansetron HCl (Ondansetron Inj 2 Mg/Ml 2 Ml Vial) 4 mg IV Q6H PRN PRN Reason: Nausea Stop: 03/19/21 03:44 Paroxetine HCl (Paroxetine Hcl 10 Mg Tab) 10 mg PO QAM [facility] Stop: 03/19/21 08:59 Last Admin: 02/22/21 08:53 Dose: 10 mg Documented by: Umeclidinium [place] (Umeclidinium [place] 62.5mcg/Blister 7 Puffs/Inhaler) 1 puffs INH DAILY [facility] Stop: 03/19/21 08:59 Last Admin: 02/22/21 08:53 Dose: 1 puffs Documented by: Vitamin B Complex (Vitamin B Complex Tab) 1 tab PO QAM [facility] Stop: 03/19/21 08:59 Last Admin: 02/22/21 08:51 Dose: 1 tab Documented by: Vitamin D (Cholecalciferol 1,000 Units 25 Mcg Tab) 1,000 units PO QAM [facility] Stop: 03/19/21 08:59 Last Admin: 02/22/21 08:52 Dose: 1,000 units Documented by: PG Care Time/CCT Total # of Minutes Spent Total Time Spent with Patient: Total time spent is greater than 50% in coordination of care (as documented) at patient's floor/unit and/or counseling patient: Coding Level of Care Code 34325 Subseq Hosp Care Lvl 2 Diagnoses Balance disorder R26.89 Hyponatremia E87.1 Diabetic peripheral neuropathy E11.42 Schizophrenia F20.9 Bipolar I disorder, single manic episode F30.9 Dyslipidemia E78.5 HTN (hypertension) I10 Atrial bigeminy I49.8 Frequent falls R29.6
[2021-02-22] MEDS: OLANZapine 5 MG TABLET PO SCH (20:16)
[2021-02-23] MEDS: CHOLECALCIFEROL 1,000 UNITS 25 MCG TAB PO SCH (09:10)
[2021-02-23] MEDS: CYANOCOBALAMIN 500 MCG TABLET (VITAMIN B-12) PO SCH (09:10)
[2021-02-23] MEDS: ASPIRIN 81 MG ECTAB PO SCH (09:10)
[2021-02-23] MEDS: LOSARTAN POTASSIUM 50 MG TAB PO SCH (09:10)
[2021-02-23] MEDS: DIVALPROEX EXTENDED RELEASE 250 MG TABCR PO SCH ×2 (09:10→20:04)
[2021-02-23] MEDS: FUROSEMIDE 40 MG TAB PO SCH (09:10)
[2021-02-23] MEDS: DIVALPROEX EXTENDED RELEASE 500 MG TAB PO SCH ×2 (09:10→20:04)
[2021-02-23] MEDS: UMECLIDINIUM BROMIDE 62.5MCG/BLISTER 7 PUFFS/INHALER INH SCH (09:11)
[2021-02-23] MEDS: OLANZapine 10 MG TAB PO SCH (09:11)
[2021-02-23] MEDS: PARoxetine HCL 10 MG TAB PO SCH (09:11)
[2021-02-23] MEDS: VITAMIN B COMPLEX TAB PO SCH (09:11)
[2021-02-23] MEDS: INSULIN ASPART 100 UNITS/ML 3 ML PEN SC SCH ×4 (09:18→21:13)
[2021-02-23] MEDS: HEPARIN SOD 5,000 UNIT/0.5 ML VIAL SQ SCH ×2 (09:19→20:04)
[2021-02-23] MEDS: OLANZapine 5 MG TABLET PO SCH (20:04)
--- NOTE | 2021-02-23 20:47 | Hospitalist Progress Note ---
Date of Service February 23, 2021 Assessment & Plan (1) Balance disorder: Plan: Balance disorder/frequent falls- Multifactorial: Deconditioning, medication related, diabetic peripheral neuropathy, hyponatremia, others This patient is cared for by lázaro pham is fairly homebound getting his food from the food bank but does demonstrate over the last few weeks inability to care for himself denied SNF rehab will attempt to get him there as permanent resident, would need [facility] process (2) Hyponatremia: Plan: Sodium steadily improving, up to 134 8/2 Suggestion of excess fluid intake/psychogenic polydipsia continue Fluid restriction at 1200 cc daily could be difficult to manage outside of hospital if he has access to any fluids he wants he admits to drinking a lot of fluids, says he can drink 1/2 a case of diet Pepsi a day (3) Diabetic peripheral neuropathy: Plan: Hold glipizide and Metformin Placed on Accu-Cheks before meals and at bedtime with NovoLog coverage per scale monitor for hypoglycemia, no episodes, sugars well controlled today (4) Schizophrenia: Plan: Continue usual medications (5) Bipolar I disorder, single manic episode: Plan: Continue usual medications (6) Dyslipidemia: Plan: Reported in history of been on no specific treatment (7) HTN (hypertension): Plan: Hypertension/atrial bigeminy/atrial trigeminy- replete electrolytes (8) Atrial bigeminy: Plan: See above (9) Frequent falls: Plan: Multifactorial as above. Consult PT/OT, working on rehab placement Admission and Anticipated Discharge Date Admission Date: February 17, 2021 Subjective patient doing well, no acute issues insurance denied SNF rehab peer to peer was not successful CM will try to get him to [facility] but would likely require [employer] process which would take a while patient eating well, ambulated 75 feet with walker unfortunately he is not safe to be alone Review of Systems Review of Systems: All systems reviewed & are unremarkable except as noted in Subjective Physical Exam Constitutional: well developed, well nourished, + disheveled, cooperative and comfortable; no acute distress Neck: trachea midline, no thyromegaly Respiratory: normal respiratory effort, lungs clear to auscultation Cardiovascular: RRR, no murmur, no edema Gastrointestinal (Abdomen): normal bowel sounds, soft, nontender, no hepatosplenomegaly Musculoskeletal: no cyanosis or clubbing, extremities motor strength 5/5 Skin: no rashes, warm and dry Neurologic: CN's II-XI intact bilaterally, moves all extremities and awake; no focal motor deficits Motor/Sensory: no tremor, normal movement and no pronator drift Psychiatric: Orientation: alert and oriented x 3 Estimated Intelligence: + below average estimated intelligence Results & Data Results & Data ([facility]) Vital Signs (Past 12 Hours) Vital Signs Temp Pulse Resp BP Pulse Ox 02/23/21 15:00 36.4 C L 95 H 16 114/75 96 Laboratory Results Laboratory Results - last 24 hr 02/23/21 02/23/21 02/23/21 08:10 12:12 17:13 POC Glucose 139 H 174 H 132 H Medications Administered Current Inpatient Medications Acetaminophen (Acetaminophen 325 Mg Tab) 650 mg PO Q4H PRN PRN Reason: Pain or Fever Stop: 03/19/21 03:44 Last Admin: 02/17/21 04:41 Dose: 650 mg Documented by: Aspirin (Aspirin 81 Mg Ectab) 81 mg PO QAM [facility] Stop: 03/19/21 08:59 Last Admin: 02/23/21 09:10 Dose: 81 mg Documented by: Cyanocobalamin (Cyanocobalamin 500 Mcg Tablet (Vitamin B-12)) 1,000 mcg PO QAM [facility] Stop: 03/19/21 08:59 Last Admin: 02/23/21 09:10 Dose: 1,000 mcg Documented by: Dextrose (Dextrose 50% 50 Ml Syringe) 25 - 50 ml IV UD PRN; Protocol PRN Reason: Hypoglycemia Protocol Stop: 03/19/21 05:01 Divalproex Sodium (Divalproex Extended Release 250 Mg Tabcr) 250 mg PO BID [facility] Stop: 03/19/21 08:59 Last Admin: 02/23/21 20:04 Dose: 250 mg Documented by: Divalproex Sodium (Divalproex Extended Release 500 Mg Tab) 500 mg PO BID [facility] Stop: 03/19/21 08:59 Last Admin: 02/23/21 20:04 Dose: 500 mg Documented by: Furosemide (Furosemide 40 Mg Tab) 40 mg PO DAILY [facility] Stop: 03/19/21 08:59 Last Admin: 02/23/21 09:10 Dose: 40 mg Documented by: Glucagon (Glucagon For Inj 1 Mg Vial) 1 mg SQ UD PRN; Protocol PRN Reason: Hypoglycemia Protocol Stop: 03/19/21 05:01 Glucose (Glucose 10 Tabs/Tube) 4 - 8 tabs PO UD PRN; Protocol PRN Reason: Hypoglycemia Protocol Stop: 03/19/21 05:01 Glucose (Glucose 40% Gel 15 Gm Tube) 15 - 30 gm PO UD PRN; Protocol PRN Reason: Hypoglycemia Protocol Stop: 03/19/21 05:01 Heparin Sodium (Porcine) (Heparin Sod 5,000 Unit/0.5 Ml Vial) 5,000 units SQ Q12 [facility] Stop: 03/19/21 08:59 Last Admin: 02/23/21 20:04 Dose: 5,000 units Documented by: Insulin Aspart (Insulin Aspart 100 Units/Ml 3 Ml Pen) 0 units SC ACHS [facility] Stop: 03/19/21 07:29 Last Admin: 02/23/21 17:31 Dose: 1 units Documented by: Losartan Potassium (Losartan Potassium 50 Mg Tab) 50 mg PO DAILY [facility] Stop: 03/25/21 08:59 Last Admin: 02/23/21 09:10 Dose: 50 mg Documented by: Miscellaneous (Carbohydrates For Hypoglycemia ) 15 - 30 gm PO UD PRN PRN Reason: Hypoglycemia Protocol Stop: 03/19/21 05:01 Olanzapine (Olanzapine 10 Mg Tab) 10 mg PO QAM [facility] Stop: 03/19/21 08:59 Last Admin: 02/23/21 09:11 Dose: 10 mg Documented by: Olanzapine (Olanzapine 5 Mg Tablet) 15 mg PO HS [facility] Stop: 03/19/21 20:59 Last Admin: 02/23/21 20:04 Dose: 15 mg Documented by: Ondansetron HCl (Ondansetron Inj 2 Mg/Ml 2 Ml Vial) 4 mg IV Q6H PRN PRN Reason: Nausea Stop: 03/19/21 03:44 Paroxetine HCl (Paroxetine Hcl 10 Mg Tab) 10 mg PO QAM [facility] Stop: 03/19/21 08:59 Last Admin: 02/23/21 09:11 Dose: 10 mg Documented by: Umeclidinium [place] (Umeclidinium [place] 62.5mcg/Blister 7 Puffs/Inhaler) 1 puffs INH DAILY [facility] Stop: 03/19/21 08:59 Last Admin: 02/23/21 09:11 Dose: 1 puffs Documented by: Vitamin B Complex (Vitamin B Complex Tab) 1 tab PO QAM [facility] Stop: 03/19/21 08:59 Last Admin: 02/23/21 09:11 Dose: 1 tab Documented by: Vitamin D (Cholecalciferol 1,000 Units 25 Mcg Tab) 1,000 units PO QAM [facility] Stop: 03/19/21 08:59 Last Admin: 02/23/21 09:10 Dose: 1,000 units Documented by: PG Care Time/CCT Total # of Minutes Spent Total Time Spent: 32 Total Time Spent with Patient: Total time spent is greater than 50% in coordination of care (as documented) at patient's floor/unit and/or counseling patient: 15 minutes on phone for peer to peer 17 minutes on visit, exam, documentation and speaking with CM about alternative plan Coding Level of Care Code 44904 Subseq Hosp Care Lvl 3 Diagnoses Balance disorder R26.89 Hyponatremia E87.1 Diabetic peripheral neuropathy E11.42 Schizophrenia F20.9 Bipolar I disorder, single manic episode F30.9 Dyslipidemia E78.5 HTN (hypertension) I10 Atrial bigeminy I49.8 Frequent falls R29.6
[2021-02-24] MEDS: INSULIN ASPART 100 UNITS/ML 3 ML PEN SC SCH ×4 (08:27→21:08)
[2021-02-24] MEDS: DIVALPROEX EXTENDED RELEASE 250 MG TABCR PO SCH ×2 (08:29→20:42)
[2021-02-24] MEDS: DIVALPROEX EXTENDED RELEASE 500 MG TAB PO SCH ×2 (08:29→20:41)
[2021-02-24] MEDS: HEPARIN SOD 5,000 UNIT/0.5 ML VIAL SQ SCH ×2 (08:29→20:42)
[2021-02-24] MEDS: OLANZapine 10 MG TAB PO SCH (08:29)
[2021-02-24] MEDS: PARoxetine HCL 10 MG TAB PO SCH (08:30)
[2021-02-24] MEDS: CHOLECALCIFEROL 1,000 UNITS 25 MCG TAB PO SCH (08:30)
[2021-02-24] MEDS: ASPIRIN 81 MG ECTAB PO SCH (08:30)
[2021-02-24] MEDS: CYANOCOBALAMIN 500 MCG TABLET (VITAMIN B-12) PO SCH (08:31)
[2021-02-24] MEDS: VITAMIN B COMPLEX TAB PO SCH (08:31)
[2021-02-24] MEDS: FUROSEMIDE 40 MG TAB PO SCH (08:32)
[2021-02-24] MEDS: LOSARTAN POTASSIUM 50 MG TAB PO SCH (08:32)
[2021-02-24] MEDS: UMECLIDINIUM BROMIDE 62.5MCG/BLISTER 7 PUFFS/INHALER INH SCH (10:39)
--- NOTE | 2021-02-24 12:51 | Hospitalist Progress Note ---
Date of Service February 24, 2021 Assessment & Plan (1) Balance disorder: Plan: Balance disorder/frequent falls- Multifactorial: Deconditioning, medication related, diabetic peripheral neuropathy, hyponatremia, others This patient is cared for by lázaro pham is fairly homebound getting his food from the food bank but does demonstrate over the last few weeks inability to care for himself denied SNF rehab will attempt to get him there as permanent resident, would need [facility] process (2) Hyponatremia: Plan: Sodium steadily improving, up to 134 8/2 Suggestion of excess fluid intake/psychogenic polydipsia continue Fluid restriction at 1200 cc daily check BMP tomorrow, if sodium is still going up will loosen fluid restriction could be difficult to manage outside of hospital if he has access to any fluids he wants he admits to drinking a lot of fluids, says he can drink 1/2 a case of diet Pepsi a day (3) Diabetic peripheral neuropathy: Plan: Hold glipizide and Metformin Placed on Accu-Cheks before meals and at bedtime with NovoLog coverage per scale sugar up at 298 will resume Metformin for now since he is medically stable just awaiting placement (4) Schizophrenia: Plan: Continue usual medications (5) Bipolar I disorder, single manic episode: Plan: Continue usual medications (6) Dyslipidemia: Plan: Reported in history of been on no specific treatment (7) HTN (hypertension): Plan: Hypertension/atrial bigeminy/atrial trigeminy- replete electrolytes (8) Atrial bigeminy: Plan: See above (9) Frequent falls: Plan: Multifactorial as above. Consult PT/OT, working on rehab placement Admission and Anticipated Discharge Date Admission Date: February 17, 2021 Subjective patient doing fine, sitting up in his chair eating lunch, says the food is great discussed with him going to [facility] but as a resident, [employer] process, he understands that he will be here a while sugars a little elevated at noon, will follow up no chest pain, no fever, no dyspnea, no cough, no GI issues Review of Systems Review of Systems: All systems reviewed & are unremarkable except as noted in Subjective Physical Exam Constitutional: well developed, well nourished, cooperative and comfortable; no acute distress Neck: trachea midline, no thyromegaly Respiratory: normal respiratory effort, lungs clear to auscultation Cardiovascular: RRR, no murmur, no edema Gastrointestinal (Abdomen): normal bowel sounds, soft, nontender, no hepatosplenomegaly Musculoskeletal: no cyanosis or clubbing, extremities motor strength 5/5 Skin: no rashes, warm and dry Neurologic: CN's II-XI intact bilaterally, moves all extremities and awake; no focal motor deficits Motor/Sensory: no tremor, normal movement and no pronator drift Psychiatric: Orientation: alert and oriented x 3 Estimated Intelligence: + below average estimated intelligence Results & Data Results & Data ([facility]) Vital Signs (Past 12 Hours) Vital Signs Temp Pulse Resp BP Pulse Ox 02/24/21 07:38 36.4 C L 83 16 147/76 H 96 Laboratory Results Laboratory Results - last 24 hr 02/23/21 02/23/21 02/24/21 17:13 20:49 08:07 POC Glucose 132 H 190 H 130 H 02/24/21 12:11 POC Glucose 298 H Medications Administered Current Inpatient Medications Acetaminophen (Acetaminophen 325 Mg Tab) 650 mg PO Q4H PRN PRN Reason: Pain or Fever Stop: 03/19/21 03:44 Last Admin: 02/17/21 04:41 Dose: 650 mg Documented by: Aspirin (Aspirin 81 Mg Ectab) 81 mg PO QAM [facility] Stop: 03/19/21 08:59 Last Admin: 02/24/21 08:30 Dose: 81 mg Documented by: Cyanocobalamin (Cyanocobalamin 500 Mcg Tablet (Vitamin B-12)) 1,000 mcg PO QAM [facility] Stop: 03/19/21 08:59 Last Admin: 02/24/21 08:31 Dose: 1,000 mcg Documented by: Dextrose (Dextrose 50% 50 Ml Syringe) 25 - 50 ml IV UD PRN; Protocol PRN Reason: Hypoglycemia Protocol Stop: 03/19/21 05:01 Divalproex Sodium (Divalproex Extended Release 250 Mg Tabcr) 250 mg PO BID [facility] Stop: 03/19/21 08:59 Last Admin: 02/24/21 08:29 Dose: 250 mg Documented by: Divalproex Sodium (Divalproex Extended Release 500 Mg Tab) 500 mg PO BID [facility] Stop: 03/19/21 08:59 Last Admin: 02/24/21 08:29 Dose: 500 mg Documented by: Furosemide (Furosemide 40 Mg Tab) 40 mg PO DAILY [facility] Stop: 03/19/21 08:59 Last Admin: 02/24/21 08:32 Dose: 40 mg Documented by: Glucagon (Glucagon For Inj 1 Mg Vial) 1 mg SQ UD PRN; Protocol PRN Reason: Hypoglycemia Protocol Stop: 03/19/21 05:01 Glucose (Glucose 10 Tabs/Tube) 4 - 8 tabs PO UD PRN; Protocol PRN Reason: Hypoglycemia Protocol Stop: 03/19/21 05:01 Glucose (Glucose 40% Gel 15 Gm Tube) 15 - 30 gm PO UD PRN; Protocol PRN Reason: Hypoglycemia Protocol Stop: 03/19/21 05:01 Heparin Sodium (Porcine) (Heparin Sod 5,000 Unit/0.5 Ml Vial) 5,000 units SQ Q12 [facility] Stop: 03/19/21 08:59 Last Admin: 02/24/21 08:29 Dose: 5,000 units Documented by: Insulin Aspart (Insulin Aspart 100 Units/Ml 3 Ml Pen) 0 units SC ACHS [facility] Stop: 03/19/21 07:29 Last Admin: 02/24/21 08:27 Dose: 2 units Documented by: Losartan Potassium (Losartan Potassium 50 Mg Tab) 50 mg PO DAILY [facility] Stop: 03/25/21 08:59 Last Admin: 02/24/21 08:32 Dose: 50 mg Documented by: Miscellaneous (Carbohydrates For Hypoglycemia ) 15 - 30 gm PO UD PRN PRN Reason: Hypoglycemia Protocol Stop: 03/19/21 05:01 Olanzapine (Olanzapine 10 Mg Tab) 10 mg PO QAM [facility] Stop: 03/19/21 08:59 Last Admin: 02/24/21 08:29 Dose: 10 mg Documented by: Olanzapine (Olanzapine 5 Mg Tablet) 15 mg PO HS [facility] Stop: 03/19/21 20:59 Last Admin: 02/23/21 20:04 Dose: 15 mg Documented by: Ondansetron HCl (Ondansetron Inj 2 Mg/Ml 2 Ml Vial) 4 mg IV Q6H PRN PRN Reason: Nausea Stop: 03/19/21 03:44 Paroxetine HCl (Paroxetine Hcl 10 Mg Tab) 10 mg PO QAM [facility] Stop: 03/19/21 08:59 Last Admin: 02/24/21 08:30 Dose: 10 mg Documented by: Umeclidinium [place] (Umeclidinium [place] 62.5mcg/Blister 7 Puffs/Inhaler) 1 puffs INH DAILY [facility] Stop: 03/19/21 08:59 Last Admin: 02/24/21 10:39 Dose: 1 puffs Documented by: Vitamin B Complex (Vitamin B Complex Tab) 1 tab PO QAM [facility] Stop: 03/19/21 08:59 Last Admin: 02/24/21 08:31 Dose: 1 tab Documented by: Vitamin D (Cholecalciferol 1,000 Units 25 Mcg Tab) 1,000 units PO QAM [facility] Stop: 03/19/21 08:59 Last Admin: 02/24/21 08:30 Dose: 1,000 units Documented by: PG Care Time/CCT Total # of Minutes Spent Total Time Spent with Patient: Total time spent is greater than 50% in coordination of care (as documented) at patient's floor/unit and/or counseling patient: Coding Level of Care Code 41869 Subseq Hosp Care Lvl 2 Diagnoses Balance disorder R26.89 Hyponatremia E87.1 Diabetic peripheral neuropathy E11.42 Schizophrenia F20.9 Bipolar I disorder, single manic episode F30.9 Dyslipidemia E78.5 HTN (hypertension) I10 Atrial bigeminy I49.8 Frequent falls R29.6
[2021-02-24] MEDS: metFORMIN HCL 500 MG TAB PO SCH (17:21)
[2021-02-24] MEDS: OLANZapine 5 MG TABLET PO SCH (20:43)
[2021-02-25 06:42] LABS: BUN Creatinine Ratio 27.7 (10-20); Calcium 8.5 mg/dl (8.5-10.1); Creatinine Clr Calc Pharmacy 76.7 ml/min; Est GFR (African American) 99.2 ml/min; Est GFR (Non-African American) 85.6 ml/min; Potassium 4.2 mmol/L (3.5-5.1)
[2021-02-25] MEDS: INSULIN ASPART 100 UNITS/ML 3 ML PEN SC SCH ×4 (08:42→21:19)
[2021-02-25] MEDS: OLANZapine 10 MG TAB PO SCH (08:44)
[2021-02-25] MEDS: HEPARIN SOD 5,000 UNIT/0.5 ML VIAL SQ SCH ×2 (08:44→20:30)
[2021-02-25] MEDS: DIVALPROEX EXTENDED RELEASE 500 MG TAB PO SCH ×2 (08:44→20:29)
[2021-02-25] MEDS: CYANOCOBALAMIN 500 MCG TABLET (VITAMIN B-12) PO SCH (08:44)
[2021-02-25] MEDS: DIVALPROEX EXTENDED RELEASE 250 MG TABCR PO SCH ×2 (08:44→20:29)
[2021-02-25] MEDS: FUROSEMIDE 40 MG TAB PO SCH (08:45)
[2021-02-25] MEDS: LOSARTAN POTASSIUM 50 MG TAB PO SCH (08:46)
[2021-02-25] MEDS: CHOLECALCIFEROL 1,000 UNITS 25 MCG TAB PO SCH (08:46)
[2021-02-25] MEDS: metFORMIN HCL 500 MG TAB PO SCH ×2 (08:46→17:28)
[2021-02-25] MEDS: PARoxetine HCL 10 MG TAB PO SCH (08:46)
[2021-02-25] MEDS: ASPIRIN 81 MG ECTAB PO SCH (08:46)
[2021-02-25] MEDS: VITAMIN B COMPLEX TAB PO SCH (08:46)
[2021-02-25] MEDS: UMECLIDINIUM BROMIDE 62.5MCG/BLISTER 7 PUFFS/INHALER INH SCH (08:47)
--- NOTE | 2021-02-25 12:48 | Hospitalist Progress Note ---
Date of Service February 25, 2021 Assessment & Plan (1) Balance disorder: Plan: Balance disorder/frequent falls- Multifactorial: Deconditioning, medication related, diabetic peripheral neuropathy, hyponatremia, others - This patient is cared for by lázaro pham is fairly homebound getting his food from the food bank but does demonstrate over the last few weeks inability to care for himself. - Denied SNF rehab - He is awaiting placement at [facility] through [facility] process Patient is in good spirits today. (2) Hyponatremia: Plan: Suggestion of excess fluid intake/psychogenic polydipsia - Improved to 137 today. - Fluid restriction increased to 1500 cc daily -Could be difficult to manage outside of hospital if he has access to any fluids he wants -He admits to drinking a lot of fluids; says he can drink 1/2 a case of diet Pepsi a day. Patient was educated on fluid restriction, and seemed receptive with some understanding. Would need closely monitored given psych issues and intellectual deficit. (3) Diabetic peripheral neuropathy: Plan: - Last Hgb A1C was 6.9% on 12/05/20. - Hold glipizide. Metformin resumed as he is medically stable. - Placed on Accu-Cheks before meals and at bedtime with NovoLog coverage per scale - Glucose has been under 200 the past 24hrs. (4) Schizophrenia: Plan: Stable. - Continue usual medications (5) Bipolar I disorder, single manic episode: Plan: Stable. - Continue usual medications (6) Dyslipidemia: Plan: Reported in history. - No medical management. - Labs the past 2 years have been reviewed, and are acceptable other than an elevated triglyceride level in November 2019 of 166 which was repeated and normalized in February 2020. - Recommend continued screening with primary care. (7) HTN (hypertension): Plan: Hypertension/atrial bigeminy/atrial trigeminy- - BP is stable at 128/74. - Continue losartan. (8) Atrial bigeminy: Plan: See above (9) Frequent falls: Plan: Multifactorial as above. - PT/OT consulted, working on rehab placement. Plan: Patient is clinically stable. Awaiting placement at [facility]. Admission and Anticipated Discharge Date Admission Date: February 17, 2021 Subjective Patient denies any pain today. Has no complaints. States he is feeling well. Review of Systems Review of Systems: All systems reviewed & are unremarkable except as noted in Subjective Physical Exam Physical Exam: Temp Pulse Resp BP Pulse Ox 36.5 C 78 16 128/74 97 02/25/21 07:19 02/25/21 07:19 02/25/21 07:19 02/25/21 07:19 02/25/21 07:19 Patient is afebrile. Vital signs stable. Constitutional: + overweight; no acute distress ENMT: Ears: no hearing impairment Neck: normal visual inspection Respiratory: normal respiratory effort, lungs clear to auscultation Cardiovascular: RRR, no murmur, no edema Gastrointestinal (Abdomen): Inspection/Auscultation: normal bowel sounds Percussion/Palpation: abdomen soft; abdomen nontender Skin: no rashes, warm and dry Psychiatric: A+Ox3, euthymic affect Results & Data Results & Data ([facility]) Vital Signs (Past 12 Hours) Vital Signs Temp Pulse Resp BP Pulse Ox 02/25/21 07:19 36.5 C 78 16 128/74 97 PG Care Time/CCT Total # of Minutes Spent Total Time Spent with Patient: Total time spent is greater than 50% in coordination of care (as documented) at patient's floor/unit and/or counseling patient: Coding Level of Care Code 77670 Subseq Hosp Care Lvl 2 Medical Decision Making Moderate Complexity Diagnoses Balance disorder R26.89 Hyponatremia E87.1 Diabetic peripheral neuropathy E11.42 Schizophrenia F20.9 Bipolar I disorder, single manic episode F30.9 Dyslipidemia E78.5 HTN (hypertension) I10 Atrial bigeminy I49.8 Frequent falls R29.6
[2021-02-25] MEDS: OLANZapine 5 MG TABLET PO SCH (20:29)
[2021-02-26] MEDS: INSULIN ASPART 100 UNITS/ML 3 ML PEN SC SCH ×4 (08:34→20:48)
[2021-02-26] MEDS: LOSARTAN POTASSIUM 50 MG TAB PO SCH (08:35)
[2021-02-26] MEDS: DIVALPROEX EXTENDED RELEASE 500 MG TAB PO SCH ×2 (08:36→20:47)
[2021-02-26] MEDS: metFORMIN HCL 500 MG TAB PO SCH ×2 (08:36→17:59)
[2021-02-26] MEDS: HEPARIN SOD 5,000 UNIT/0.5 ML VIAL SQ SCH ×2 (08:36→20:47)
[2021-02-26] MEDS: DIVALPROEX EXTENDED RELEASE 250 MG TABCR PO SCH ×2 (08:37→20:47)
[2021-02-26] MEDS: CHOLECALCIFEROL 1,000 UNITS 25 MCG TAB PO SCH (08:37)
[2021-02-26] MEDS: PARoxetine HCL 10 MG TAB PO SCH (08:37)
[2021-02-26] MEDS: ASPIRIN 81 MG ECTAB PO SCH (08:37)
[2021-02-26] MEDS: OLANZapine 10 MG TAB PO SCH (08:37)
[2021-02-26] MEDS: CYANOCOBALAMIN 500 MCG TABLET (VITAMIN B-12) PO SCH (08:38)
[2021-02-26] MEDS: FUROSEMIDE 40 MG TAB PO SCH (08:38)
[2021-02-26] MEDS: UMECLIDINIUM BROMIDE 62.5MCG/BLISTER 7 PUFFS/INHALER INH SCH (08:38)
[2021-02-26] MEDS: VITAMIN B COMPLEX TAB PO SCH (08:38)
--- NOTE | 2021-02-26 10:32 | Hospitalist Progress Note ---
Date of Service February 26, 2021 Assessment & Plan (1) Balance disorder: Plan: Balance disorder/frequent falls- Multifactorial: Deconditioning, medication related, diabetic peripheral neuropathy, hyponatremia, others Patient remains stable. - This patient is cared for by lázaro pham is fairly homebound getting his food from the food bank but does demonstrate over the last few weeks inability to care for himself. - Denied SNF rehab - He is awaiting placement at [facility] through [facility] process - Continue PT/OT until placed. (2) Hyponatremia: Plan: Suggestion of excess fluid intake/psychogenic polydipsia - Improved to 137. - Fluid restriction increased to 1500 cc daily - Monitor intermittently while inpatient. -Could be difficult to manage outside of hospital if he has access to any fluids he wants -He admits to drinking a lot of fluids; says he can drink 1/2 a case of diet Pepsi a day. Patient was educated on fluid restriction, and seemed receptive with some understanding. Would need closely monitored given psych issues and intellectual deficit. (3) Diabetic peripheral neuropathy: Plan: - Last Hgb A1C was 6.9% on 12/05/20. - Hold glipizide. Metformin resumed as he is medically stable. - Placed on Accu-Cheks before meals and at bedtime with NovoLog coverage per scale - Glucose has been stable and under 200 the nearly 48hrs. (4) Schizophrenia: Plan: Stable. - Continue usual medications (5) Bipolar I disorder, single manic episode: Plan: Stable. - Continue usual medications (6) Dyslipidemia: Plan: Reported in history. - No medical management. - Labs the past 2 years have been reviewed, and are acceptable other than an elevated triglyceride level in November 2019 of 166 which was repeated and normalized in February 2020. - Recommend continued screening with primary care. (7) HTN (hypertension): Plan: Hypertension/atrial bigeminy/atrial trigeminy- - BP is stable at 123/70. - Continue losartan. (8) Atrial bigeminy: Plan: See above (9) Frequent falls: Plan: Multifactorial as above. - Continue PT/OT. - Pending SNF placement through [employer] process. Admission and Anticipated Discharge Date Admission Date: February 17, 2021 Subjective Patient feels well this morning. No new complaints. Awaiting placement at [facility] through [employer] Process. Review of Systems Review of Systems: All systems reviewed & are unremarkable except as noted in Subjective Physical Exam Physical Exam: Temp Pulse Resp BP Pulse Ox 36.7 C 94 H 16 123/70 92 02/26/21 07:10 02/26/21 07:10 02/26/21 07:10 02/26/21 07:10 02/26/21 07:10 Patient is afebrile. Vital signs stable. Constitutional: + overweight; no acute distress Eyes: + anicteric sclerae ENMT: Ears: no hearing impairment Neck: trachea midline, no thyromegaly Respiratory: normal respiratory effort, lungs clear to auscultation Cardiovascular: RRR, no murmur, no edema Gastrointestinal (Abdomen): Inspection/Auscultation: normal bowel sounds Percussion/Palpation: abdomen soft; abdomen nontender Skin: no rashes, warm and dry Psychiatric: A+Ox3, euthymic affect Lymphatic: no cervical or axillary lymphadenopathy Results & Data Results & Data ([facility]) Vital Signs (Past 12 Hours) Vital Signs Temp Pulse Resp BP Pulse Ox 02/26/21 07:10 36.7 C 94 H 16 123/70 92 PG Care Time/CCT Total # of Minutes Spent Total Time Spent with Patient: Total time spent is greater than 50% in coordination of care (as documented) at patient's floor/unit and/or counseling patient: Coding Level of Care Code 12452 Subseq Hosp Care Lvl 2 Diagnoses Balance disorder R26.89 Hyponatremia E87.1 Diabetic peripheral neuropathy E11.42 Schizophrenia F20.9 Bipolar I disorder, single manic episode F30.9 Dyslipidemia E78.5 HTN (hypertension) I10 Atrial bigeminy I49.8 Frequent falls R29.6
[2021-02-26] MEDS: OLANZapine 5 MG TABLET PO SCH (20:47)
[2021-02-27] MEDS: metFORMIN HCL 500 MG TAB PO SCH ×2 (08:19→18:08)
[2021-02-27] MEDS: ASPIRIN 81 MG ECTAB PO SCH (08:19)
[2021-02-27] MEDS: DIVALPROEX EXTENDED RELEASE 250 MG TABCR PO SCH ×2 (08:20→20:41)
[2021-02-27] MEDS: CYANOCOBALAMIN 500 MCG TABLET (VITAMIN B-12) PO SCH (08:20)
[2021-02-27] MEDS: CHOLECALCIFEROL 1,000 UNITS 25 MCG TAB PO SCH (08:20)
[2021-02-27] MEDS: OLANZapine 10 MG TAB PO SCH (08:21)
[2021-02-27] MEDS: FUROSEMIDE 40 MG TAB PO SCH (08:21)
[2021-02-27] MEDS: HEPARIN SOD 5,000 UNIT/0.5 ML VIAL SQ SCH ×2 (08:21→20:38)
[2021-02-27] MEDS: LOSARTAN POTASSIUM 50 MG TAB PO SCH (08:21)
[2021-02-27] MEDS: VITAMIN B COMPLEX TAB PO SCH (08:22)
[2021-02-27] MEDS: PARoxetine HCL 10 MG TAB PO SCH (08:22)
[2021-02-27] MEDS: UMECLIDINIUM BROMIDE 62.5MCG/BLISTER 7 PUFFS/INHALER INH SCH (08:22)
[2021-02-27] MEDS: DIVALPROEX EXTENDED RELEASE 500 MG TAB PO SCH ×2 (08:23→20:40)
[2021-02-27] MEDS: INSULIN ASPART 100 UNITS/ML 3 ML PEN SC SCH ×4 (08:30→20:41)
--- NOTE | 2021-02-27 10:01 | Hospitalist Progress Note ---
Date of Service February 27, 2021 Assessment & Plan (1) Balance disorder: Plan: Balance disorder/frequent falls- Multifactorial: Deconditioning, medication related, diabetic peripheral neuropathy, hyponatremia, others This patient is cared for by lázaro pham is fairly homebound getting his food from the food bank but does demonstrate over the last few weeks inability to care for himself denied SNF rehab will attempt to get him there as permanent resident, would need target process -- currently in place. awaiting determination Also started on thiamine empirically and would continue multivitamin daily at d/c (2) Hyponatremia: Plan: Sodium steadily improving, up to 134 8 Suggestion of excess fluid intake/psychogenic polydipsia continue Fluid restriction at 1200 cc daily -- loosened to 1500cc Repeat BMP with Na now wnl, 137 --> loosen fluid restriction to 1800cc/day repeat BMP in AM -- could limit to 2L and monitor for stability while awaiting bed given could be difficult to manage outside of hospital if he has access to any fluids he wants he admits to drinking a lot of fluids, says he can drink 1/2 a case of diet Pepsi a day (3) Diabetic peripheral neuropathy: Plan: Last A1c 6.27 Nov 2020 Hold glipizide and Metformin while inpatient Placed on Accu-Cheks before meals and at bedtime with NovoLog coverage per scale sugar up at 298 Metformin resumed as medically stable and awaiting placement ISS -- BSGs acceptable (4) Schizophrenia: Plan: Continue usual medications (5) Bipolar I disorder, single manic episode: Plan: Continue usual medications (6) Dyslipidemia: Plan: Reported in history of been on no specific treatment (7) HTN (hypertension): Plan: Hypertension/atrial bigeminy/atrial trigeminy- replete electrolytes Stable -- Losartan continued at 50mg daily (will need new rx at d/c), lasix 40mg daily (8) Atrial bigeminy: Plan: See above (9) Frequent falls: Plan: Multifactorial as above. Consult PT/OT, working on rehab placement DVT Proph -- SCDs, frequent ambulation Dispo: continued inpatient stay. Patient is [facility]ARGET -- accepted at [facility] pending approval. Madonna at [facility] with paperwork for review.CM following. Medically stable when bed available Admission and Anticipated Discharge Date Admission Date: February 17, 2021 Supervising Physician Co-Signing Physician Notes PA Supervision Note: I did not personally see or examine the patient today, but I verified all guzman points of MARY Springer's assessment and plan with the following exceptions/additions: None Subjective Patient evaluated this morning. Up on bedside commode moving his bowels currently. Eating/drinking no issue. No reported pain. Sticking with his fluid restriction and content with such. No fever, chills, chest pain, shortness of breath, abdominal pain, nausea vomiting or dysuria at this time. Review of Systems Review of Systems: All systems reviewed & are unremarkable except as noted in HPI & below Physical Exam Constitutional: + overweight; no acute distress Eyes: + anicteric sclerae ENMT: Ears: no hearing impairment Neck: trachea midline, no thyromegaly Respiratory: normal respiratory effort, lungs clear to auscultation Cardiovascular: RRR, no murmur, no edema Gastrointestinal (Abdomen): Inspection/Auscultation: normal bowel sounds Percussion/Palpation: abdomen soft; abdomen nontender Skin: no rashes, warm and dry Psychiatric: A+Ox3, euthymic affect Lymphatic: no cervical or axillary lymphadenopathy Results & Data Results & Data ([facility]) Vital Signs (Past 12 Hours) Vital Signs Temp Pulse Resp BP BP Pulse Ox 02/27/21 07:26 36.4 C L 82 16 115/70 95 02/26/21 22:10 36.8 C 87 18 121/78 95 PG Care Time/CCT Total # of Minutes Spent Total Time Spent with Patient: Total time spent is greater than 50% in coordination of care (as documented) at patient's floor/unit and/or counseling patient: Coding Level of Care Code 45421 Subseq Hosp Care Lvl 1 Diagnoses Balance disorder R26.89 Hyponatremia E87.1 Diabetic peripheral neuropathy E11.42 Schizophrenia F20.9 Bipolar I disorder, single manic episode F30.9 Dyslipidemia E78.5 HTN (hypertension) I10 Atrial bigeminy I49.8 Frequent falls R29.6
[2021-02-27] MEDS: THIAMINE HCL 100 MG TAB PO SCH (12:23)
[2021-02-27] MEDS: OLANZapine 5 MG TABLET PO SCH (20:40)
[2021-02-28 06:41] LABS: BUN Creatinine Ratio 23.1 (10-20); Calcium 8.7 mg/dl (8.5-10.1); Creatinine Clr Calc Pharmacy 82.4 ml/min; Est GFR (African American) 102.2 ml/min; Est GFR (Non-African American) 88.2 ml/min; Potassium 3.8 mmol/L (3.5-5.1)
--- NOTE | 2021-02-28 07:45 | Hospitalist Progress Note ---
Date of Service February 28, 2021 Assessment & Plan (1) Balance disorder: Plan: Balance disorder/frequent falls- Multifactorial: Deconditioning, medication related, diabetic peripheral neuropathy, hyponatremia, others This patient is cared for by lázaro pham is fairly homebound getting his food from the food bank but does demonstrate over the last few weeks [employer] inability to care for himself denied SNF rehab --> ewill attempt to get him there as permanent resident, would need target process -- currently in place. Patient is TARGET -- accepted at [facility] pending approval. Madonna at [facility] with paperwork for review.CM following. awaiting determination Also started on thiamine empirically and would continue multivitamin daily at d/c (2) Hyponatremia: Plan: Sodium steadily improving, up to 134 8/ Suggestion of excess fluid intake/psychogenic polydipsia continue Fluid restriction at 1200 cc daily -- loosened to 1500cc Loosened to 1800cc and Na 135 on AM labs and reduced back to 1500cc/day TSH wnl could be difficult to manage outside of hospital if he has access to any fluids he wants he admits to drinking a lot of fluids, says he can drink 1/2 a case of diet Pepsi a day --> discussed taking measured cup at d/c to ensure he is aware of how much intake he is having to prevent recurrence BMP in AM (3) Diabetic peripheral neuropathy: Plan: Last A1c 6.27 Nov 2020 Hold glipizide and Metformin while inpatient Placed on Accu-Cheks before meals and at bedtime with NovoLog coverage per scale sugar up at 298 Metformin resumed as medically stable and awaiting placement ISS -- BSGs acceptable (4) Schizophrenia: Plan: Continue usual medications (5) Bipolar I disorder, single manic episode: Plan: Continue usual medications (6) Dyslipidemia: Plan: Reported in history of been on no specific treatment (7) HTN (hypertension): Plan: Hypertension/atrial bigeminy/atrial trigeminy- replete electrolytes Stable -- Losartan continued (increased from prior 25mg daily to 50mg daily and will need new rx at d/c), Continue lasix 40mg daily BP stable (8) Atrial bigeminy: Plan: See above (9) Frequent falls: Plan: Multifactorial as above. Consult PT/OT, working on rehab placement DVT Proph -- SCDs, frequent ambulation -- Heparin SQ Dispo: continued inpatient stay. Patient is TARGET -- accepted at [facility] pending approval. Madonna at [facility] with paperwork for review.JORDON following. Medically stable when bed available Admission and Anticipated Discharge Date Admission Date: February 17, 2021 Supervising Physician Co-Signing Physician Notes MARY Supervision Note: I did not personally see or examine the patient today, but I verified all guzman points of MARY Springer's assessment and plan with the following exceptions/additions: None Subjective Patient evaluated this morning. Doing well. Feeling better after BM yesterday. Discussed taking his cup from hospital at d/c to help ensure fluid restriction continued as he does have concerns about going back to drinking large amounts of diet pepsi after discharge. Friend to be getting him cookies from bake shop -- asked if able to bring in. Discussed if during visitation hours he could bring from 2-6pm. Questions/concerns addressed at this time. No fever, chills, chest pain, shortness of breath, abdominal pain, nausea or vomiting reported. Review of Systems Review of Systems: All systems reviewed & are unremarkable except as noted in HPI & below Physical Exam Constitutional: + overweight; no acute distress Eyes: + anicteric sclerae ENMT: Ears: no hearing impairment Neck: trachea midline, no thyromegaly Respiratory: normal respiratory effort, lungs clear to auscultation Auscultation: + diminished lung sounds Cardiovascular: RRR, no murmur, no edema Gastrointestinal (Abdomen): Inspection/Auscultation: normal bowel sounds Percussion/Palpation: abdomen soft; abdomen nontender Skin: no rashes, warm and dry Psychiatric: A+Ox3, euthymic affect Lymphatic: no cervical or axillary lymphadenopathy Results & Data Results & Data ([facility]) Vital Signs (Past 12 Hours) Vital Signs Temp Pulse Resp BP Pulse Ox 02/28/21 07:43 36.6 C 80 17 112/69 93 02/27/21 23:26 36.6 C 119 H 16 160/78 H 95 Laboratory Results 02/28/21 02/27/21 02/27/21 Range/Units 05:44 20:34 17:12 Sodium 135 L (136-145) mmol/L Potassium 3.8 (3.5-5.1) mmol/L Chloride 103 (98-107) mmol/L Carbon Dioxide 27 (21-32) mmol/L Anion Gap 5.0 (3-11) BUN 19 H (7-18) mg/dl Creatinine 0.81 (0.6-1.4) mg/dl Est Cr Clr Drug Dosing 82.4 ml/min Est GFR ( Amer) 102.2 ml/min Est GFR (Non-Af Amer) 88.2 ml/min BUN/Creatinine Ratio 23.1 H (10-20) Glucose 129 H (70-99) mg/dl POC Glucose 144 H 149 H (70-99) mg/dl Calcium 8.7 (8.5-10.1) mg/dl 02/27/21 02/27/21 Range/Units 12:09 08:16 Sodium (136-145) mmol/L Potassium (3.5-5.1) mmol/L Chloride (98-107) mmol/L Carbon Dioxide (21-32) mmol/L Anion Gap (3-11) BUN (7-18) mg/dl Creatinine (0.6-1.4) mg/dl Est Cr Clr Drug Dosing ml/min Est GFR ( Amer) ml/min Est GFR (Non-Af Amer) ml/min BUN/Creatinine Ratio (10-20) Glucose (70-99) mg/dl POC Glucose 174 H 150 H (70-99) mg/dl Calcium (8.5-10.1) mg/dl PG Care Time/CCT Total # of Minutes Spent Total Time Spent with Patient: Total time spent is greater than 50% in coordination of care (as documented) at patient's floor/unit and/or counseling patient: Coding Level of Care Code 99508 Subseq Hosp Care Lvl 1 Diagnoses Balance disorder R26.89 Hyponatremia E87.1 Diabetic peripheral neuropathy E11.42 Schizophrenia F20.9 Bipolar I disorder, single manic episode F30.9 Dyslipidemia E78.5 HTN (hypertension) I10 Atrial bigeminy I49.8 Frequent falls R29.6
[2021-02-28] MEDS: DIVALPROEX EXTENDED RELEASE 500 MG TAB PO SCH ×2 (08:37→21:20)
[2021-02-28] MEDS: THIAMINE HCL 100 MG TAB PO SCH (08:37)
[2021-02-28] MEDS: ASPIRIN 81 MG ECTAB PO SCH (08:37)
[2021-02-28] MEDS: CHOLECALCIFEROL 1,000 UNITS 25 MCG TAB PO SCH (08:37)
[2021-02-28] MEDS: PARoxetine HCL 10 MG TAB PO SCH (08:37)
[2021-02-28] MEDS: LOSARTAN POTASSIUM 50 MG TAB PO SCH (08:38)
[2021-02-28] MEDS: CYANOCOBALAMIN 500 MCG TABLET (VITAMIN B-12) PO SCH (08:38)
[2021-02-28] MEDS: OLANZapine 10 MG TAB PO SCH (08:38)
[2021-02-28] MEDS: metFORMIN HCL 500 MG TAB PO SCH ×2 (08:38→17:29)
[2021-02-28] MEDS: VITAMIN B COMPLEX TAB PO SCH (08:38)
[2021-02-28] MEDS: DIVALPROEX EXTENDED RELEASE 250 MG TABCR PO SCH ×2 (08:39→21:19)
[2021-02-28] MEDS: FUROSEMIDE 40 MG TAB PO SCH (08:39)
[2021-02-28] MEDS: HEPARIN SOD 5,000 UNIT/0.5 ML VIAL SQ SCH ×2 (08:39→21:17)
[2021-02-28] MEDS: UMECLIDINIUM BROMIDE 62.5MCG/BLISTER 7 PUFFS/INHALER INH SCH (08:39)
[2021-02-28] MEDS: INSULIN ASPART 100 UNITS/ML 3 ML PEN SC SCH ×4 (08:44→21:15)
[2021-02-28] MEDS: OLANZapine 5 MG TABLET PO SCH (21:24)
[2021-03-01 06:25] LABS: BUN Creatinine Ratio 30.8 (10-20); Calcium 8.7 mg/dl (8.5-10.1); Est GFR (African American) 105.5 ml/min
[2021-03-01] MEDS: DIVALPROEX EXTENDED RELEASE 250 MG TABCR PO SCH ×2 (09:01→21:44)
[2021-03-01] MEDS: DIVALPROEX EXTENDED RELEASE 500 MG TAB PO SCH ×2 (09:01→21:44)
[2021-03-01] MEDS: THIAMINE HCL 100 MG TAB PO SCH (09:01)
[2021-03-01] MEDS: CYANOCOBALAMIN 500 MCG TABLET (VITAMIN B-12) PO SCH (09:01)
[2021-03-01] MEDS: VITAMIN B COMPLEX TAB PO SCH (09:02)
[2021-03-01] MEDS: HEPARIN SOD 5,000 UNIT/0.5 ML VIAL SQ SCH ×2 (09:02→21:44)
[2021-03-01] MEDS: ASPIRIN 81 MG ECTAB PO SCH (09:02)
[2021-03-01] MEDS: FUROSEMIDE 40 MG TAB PO SCH (09:02)
[2021-03-01] MEDS: LOSARTAN POTASSIUM 50 MG TAB PO SCH (09:02)
[2021-03-01] MEDS: OLANZapine 10 MG TAB PO SCH (09:02)
[2021-03-01] MEDS: metFORMIN HCL 500 MG TAB PO SCH ×2 (09:02→17:56)
[2021-03-01] MEDS: CHOLECALCIFEROL 1,000 UNITS 25 MCG TAB PO SCH (09:02)
[2021-03-01] MEDS: PARoxetine HCL 10 MG TAB PO SCH (09:02)
[2021-03-01] MEDS: UMECLIDINIUM BROMIDE 62.5MCG/BLISTER 7 PUFFS/INHALER INH SCH (09:03)
[2021-03-01] MEDS: INSULIN ASPART 100 UNITS/ML 3 ML PEN SC SCH ×4 (09:08→21:43)
--- NOTE | 2021-03-01 09:21 | Hospitalist Progress Note ---
Date of Service March 01, 2021 Assessment & Plan (1) Balance disorder: Plan: Balance disorder/frequent falls- Multifactorial: Deconditioning, medication related, diabetic peripheral neuropathy, hyponatremia, others This patient is cared for by lázaro pham is fairly homebound getting his food from the food bank but does demonstrate over the last few weeks [employer] inability to care for himself denied SNF rehab, now [facility] --> will attempt to get him there as permanent resident, would need target process -- currently in place. Patient accepted at [facility] pending approval. Madonna at [facility] with paperwork for review awaiting determination --> per CM, hopefully will hear back by Saturday this week Also started on thiamine empirically and would continue multivitamin daily at d/c (2) Hyponatremia: Plan: Sodium steadily improving, up to 134 8 Suggestion of excess fluid intake/psychogenic polydipsia continue Fluid restriction at 1200 cc daily -- loosened to 1500cc Loosened to 1800cc and Na 135 on AM labs and reduced back to 1500cc/day -- slightly dry mm and will continue at this and monitor. If worsens would loosen up restriction as patient may be slightly dry --> Of note, increased losartan to 50mg daily and this could also be contributing and BP lower and will hold for AM --> could resume at lower dose and monitor BPs to see if needs continued increased dose TSH wnl could be difficult to manage outside of hospital if he has access to any fluids he wants he admits to drinking a lot of fluids, says he can drink 1/2 a case of diet Pepsi a day --> discussed taking measured cup at d/c to ensure he is aware of how much intake he is having to prevent recurrence BMP in AM (3) Diabetic peripheral neuropathy: Plan: Last A1c 6.27 Nov 2020 Hold glipizide and Metformin while inpatient Placed on Accu-Cheks before meals and at bedtime with NovoLog coverage per scale Glucose 122 on AM labs Metformin previously resumed as medically stable and awaiting placement and will resume his glipizide for today If BSGs acceptable could discontinue finger sticks/ISS Continue to monitor for now (4) Schizophrenia: Plan: Continue usual medications (5) Bipolar I disorder, single manic episode: Plan: Continue usual medications (6) Dyslipidemia: Plan: Reported in history of been on no specific treatment (7) HTN (hypertension): Plan: Hypertension/atrial bigeminy/atrial trigeminy- replete electrolytes Stable -- Losartan continued (Increased from prior 25mg daily to 50mg daily and will need new rx at d/c) --> Hold for Am and schedule the 25mg dose, given slightly dehydrated on exam/hyponatremia as above Consider resuming previous dose if BPs controlled on this as he will be awaiting placement until Saturday Continue lasix 40mg daily BP stable (8) Atrial bigeminy: Plan: See above (9) Frequent falls: Plan: Multifactorial as above. Consult PT/OT, working on rehab placement DVT Proph -- SCDs, frequent ambulation -- Heparin SQ Dispo: continued inpatient stay. Patient is TARGET -- accepted at [facility] pending approval. Madonna at [facility] with paperwork for review.CM following. Medically stable when bed available -- hopefully by Saturday Admission and Anticipated Discharge Date Admission Date: February 17, 2021 Supervising Physician Co-Signing Physician Notes MARY Supervision Note: I did not personally see or examine the patient today, but I verified all guzman points of MARY Springer's assessment and plan with the following exceptions/additions: None Subjective Patient evaluated this morning. Doing well. No new concerns/complaints. Awaiting determination of [facility] process but hopeful to hear back by Saturday. Doing well with fluid restriction and continues to move his bowels and notes he feels good. Discussed resuming glimiperide and if BSGs acceptable for 24 hours can avoid finger sticks. He is excited about this. No fever, chills, chest pain, shortness of breath, abdominal pain, nausea, vomiting or dysuria. Review of Systems Review of Systems: All systems reviewed & are unremarkable except as noted in HPI & below Physical Exam Constitutional: + overweight; no acute distress Eyes: + anicteric sclerae ENMT: Ears: no hearing impairment mm slightly dry Neck: trachea midline, no thyromegaly Respiratory: normal respiratory effort, lungs clear to auscultation Auscultation: + diminished lung sounds Cardiovascular: RRR, no murmur, no edema Gastrointestinal (Abdomen): Inspection/Auscultation: normal bowel sounds Percussion/Palpation: abdomen soft; abdomen nontender Skin: no rashes, warm and dry Psychiatric: A+Ox3, euthymic affect Lymphatic: no cervical or axillary lymphadenopathy Results & Data Results & [facility] ([facility]) Vital Signs (Past 12 Hours) Vital Signs Temp Pulse Resp BP BP Pulse Ox 03/01/21 07:56 36.7 C 101 H 18 107/72 94 02/28/21 22:23 36.5 C 88 18 105/72 97 Laboratory Results 03/01/21 03/01/21 02/28/21 Range/Units 08:17 05:32 20:58 Sodium 135 L (136-145) mmol/L Potassium 4.0 (3.5-5.1) mmol/L Chloride 104 (98-107) mmol/L Carbon Dioxide 27 (21-32) mmol/L Anion Gap 4.0 (3-11) BUN 23 H (7-18) mg/dl Creatinine 0.75 (0.6-1.4) mg/dl Est Cr Clr Drug Dosing 89.0 ml/min Est GFR ( Amer) 105.5 ml/min Est GFR (Non-Af Amer) 91.0 ml/min BUN/Creatinine Ratio 30.8 H (10-20) Glucose 122 H (70-99) mg/dl POC Glucose 143 H 167 H (70-99) mg/dl Calcium 8.7 (8.5-10.1) mg/dl TSH (0.300-4.500) uIu/ml 02/28/21 02/28/21 02/28/21 Range/Units 17:30 11:42 05:44 Sodium (136-145) mmol/L Potassium (3.5-5.1) mmol/L Chloride (98-107) mmol/L Carbon Dioxide (21-32) mmol/L Anion Gap (3-11) BUN (7-18) mg/dl Creatinine (0.6-1.4) mg/dl Est Cr Clr Drug Dosing ml/min Est GFR ( Amer) ml/min Est GFR (Non-Af Amer) ml/min BUN/Creatinine Ratio (10-20) Glucose (70-99) mg/dl POC Glucose 112 H 146 H (70-99) mg/dl Calcium (8.5-10.1) mg/dl TSH 2.430 (0.300-4.500) uIu/ml PG Care Time/CCT Total # of Minutes Spent Total Time Spent with Patient: Total time spent is greater than 50% in coordination of care (as documented) at patient's floor/unit and/or counseling patient: Coding Level of Care Code 75956 Subseq Hosp Care Lvl 2 Diagnoses Balance disorder R26.89 Hyponatremia E87.1 Diabetic peripheral neuropathy E11.42 Schizophrenia F20.9 Bipolar I disorder, single manic episode F30.9 Dyslipidemia E78.5 HTN (hypertension) I10 Atrial bigeminy I49.8 Frequent falls R29.6
[2021-03-01] MEDS: glipiZIDE 5 MG TAB PO SCH (17:56)
[2021-03-01] MEDS: OLANZapine 5 MG TABLET PO SCH (21:44)
[2021-03-02 06:34] LABS: BUN Creatinine Ratio 30.8 (10-20); Creatinine Clr Calc Pharmacy 84.5 ml/min; Est GFR (African American) 103.2 ml/min; Est GFR (Non-African American) 89.1 ml/min
[2021-03-02 06:36] LABS: Potassium 4.1 mmol/L (3.5-5.1)
[2021-03-02] MEDS: HEPARIN SOD 5,000 UNIT/0.5 ML VIAL SQ SCH (08:37)
[2021-03-02] MEDS: DIVALPROEX EXTENDED RELEASE 250 MG TABCR PO SCH (08:37)
[2021-03-02] MEDS: THIAMINE HCL 100 MG TAB PO SCH (08:38)
[2021-03-02] MEDS: DIVALPROEX EXTENDED RELEASE 500 MG TAB PO SCH (08:38)
[2021-03-02] MEDS: metFORMIN HCL 500 MG TAB PO SCH (08:38)
[2021-03-02] MEDS: glipiZIDE 5 MG TAB PO SCH (08:38)
[2021-03-02] MEDS: PARoxetine HCL 10 MG TAB PO SCH (08:38)
[2021-03-02] MEDS: FUROSEMIDE 40 MG TAB PO SCH (08:38)
[2021-03-02] MEDS: CHOLECALCIFEROL 1,000 UNITS 25 MCG TAB PO SCH (08:39)
[2021-03-02] MEDS: VITAMIN B COMPLEX TAB PO SCH (08:39)
[2021-03-02] MEDS: OLANZapine 10 MG TAB PO SCH (08:39)
[2021-03-02] MEDS: ASPIRIN 81 MG ECTAB PO SCH (08:39)
[2021-03-02] MEDS: CYANOCOBALAMIN 500 MCG TABLET (VITAMIN B-12) PO SCH (08:40)
[2021-03-02] MEDS: INSULIN ASPART 100 UNITS/ML 3 ML PEN SC SCH ×2 (08:40→13:05)
[2021-03-02] MEDS: UMECLIDINIUM BROMIDE 62.5MCG/BLISTER 7 PUFFS/INHALER INH SCH (08:40)
[2021-03-02] MEDS ORDERED: LOSARTAN POTASSIUM 25 MG TAB PO SCH (09:00)
--- NOTE | 2021-03-02 11:12 | Hospitalist Progress Note ---
Date of Service March 02, 2021 Assessment & Plan Admission and Anticipated Discharge Date Admission Date: February 17, 2021 Results & Data Results & Data ([facility]) Vital Signs (Past 12 Hours) Vital Signs Temp Pulse Resp BP Pulse Ox 03/02/21 06:57 36.7 C 101 H 16 129/74 96 PG Care Time/CCT Total # of Minutes Spent Total Time Spent with Patient: Total time spent is greater than 50% in coordination of care (as documented) at patient's floor/unit and/or counseling patient: Coding
--- NOTE | 2021-03-02 11:12 | Discharge Summary ---
Date of Service March 02, 2021 Admission HPI Per Admitting Provider The patient is a 71-year-old male with a past medical history including balance disorder pulmonary emphysema, coughing, lung nodule, diabetes mellitus type 2, diabetic peripheral neuropathy, long-term use of insulin, cellulitis, obesity, edema, dysesthesia, hepatic encephalopathy, dehydration, schizophrenia, lactic acidosis, bipolar 1 disorder, dyslipidemia hypertension. He presents with symptoms as noted above. Significant laboratory abnormalities in the ED: Sodium 124, potassium 3.4, magnesium 1.4, CK 555. Patient was COVID-[address] of head without contrast was negative. X-rays of chest and pelvis were negative. Monitor in the ED showed atrial trigeminy Admission Exam Per Admitting Provider The patient is awake, alert and oriented 3, well developed and well nourished, normocephalic and atraumatic, lying in bed and in no acute distress. HEENT--PERRL, EOMI, mucous membranes and oropharynx dry. Neck--supple. No JVD. No bruits. Thyroid normal, trachea midline, no adenopathy. Heart--normal S1 and S2. No murmurs, rubs or gallops. Lungs--clear bilaterally, no respiratory distress, no accessory muscle use. Abdomen--normal bowel sounds and soft. Nontender. Nondistended, no hernias or masses, no organomegaly. Extremities--no cyanosis or clubbing. No edema. Dermatologic--normal skin turgor, normal color, no abnormal lymph nodes, no rash. Neurologic--cranial nerves II through XII grossly intact. Rheumatologic--normal range of motion. Psychiatric--cooperative Principal Diagnosis Hyponatremia, balance disorder Discharge Exam Constitutional + overweight; no acute distress Eyes + anicteric sclerae ENMT Ears: no hearing impairment Membranes slightly dry Neck trachea midline, no thyromegaly Respiratory normal respiratory effort, lungs clear to auscultation Auscultation: + diminished lung sounds Cardiovascular RRR, no murmur, no edema Gastrointestinal (Abdomen) Inspection/Auscultation: normal bowel sounds Percussion/Palpation: abdomen soft; abdomen nontender Musculoskeletal no cyanosis or clubbing, extremities motor strength 5/5 Skin no rashes, warm and dry Neurologic PERRL, EOMI, accommodation nl, no face palsy, no dysarthria Psychiatric A+Ox3, euthymic affect Genitourinary No Gimenez Lymphatic no cervical or axillary lymphadenopathy Discharge Data Allergies Allergy/AdvReac Type Severity Reaction Status Date / Time No Known Drug Allergies Allergy Unknown Verified 12/14/20 13:57 Consultations 02/17/21 01:40 ED Decision to Admit Stat Ordered Studies Head CT 02/16/21 23:[address] DOSE: 614.27 mGy.cm HISTORY: fall, weakness TECHNIQUE: Multiaxial CT images of the head were performed without the use of intravenous contrast. Automated exposure control was utilized for this study. A dose lowering technique was utilized adhering to the principles of ALARA. Comparison: 02/25/2020. Findings: The paranasal sinuses and mastoid air cells are clear. The calvarium and skull base are intact. There is no mass, hematoma, midline shift, acute infarct. White matter hypodensity is nonspecific but suggestive of microvascular ischemic change. The ventricles and sulci demonstrate mild age-related involutional changes. Mild right parietal scalp swelling. Impression: No acute intracranial abnormality. ACT 112: Negative or not required by law. Electronically signed by: Yakov Mcgraw M.D. 02/17/2021 7:31 AM Pelvis X-Ray 02/16/21 23:54 XR pelvis 1-2V routine CLINICAL HISTORY: fall, weakness. Pelvic pain. COMPARISON STUDY: Pelvis 06/22/2019. FINDINGS: No fracture or dislocation within the pelvis or hips. 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 Soft tissues are unremarkable. The sacrum is intact. IMPRESSION: No fractures within the pelvis or hips. ACT 112: Negative or not required by law. Electronically signed by: Yakov Mcgraw M.D. 02/17/2021 7:56 AM Chest X-Ray 02/16/21 23:55 XR chest 1V portable HISTORY: weakness, fall COMPARISON: Chest CT 01/13/2021. FINDINGS: There are low lung volumes. No pneumothorax. No pleural effusions. The heart is normal in size. Mild emphysema persists. Interstitial thickening at the lung bases remains unchanged and likely represents vascular crowding from the emphysema. No new focal lung consolidations. No evidence for pulmonary edema. There is an old nonunited left clavicle fracture, unchanged. IMPRESSION: No significant change compared to the prior study. No acute process. ACT 112: Negative or not required by law. Electronically signed by: Yakov Mcgraw M.D. 02/17/2021 7:58 AM Hospital Course (1) Balance disorder: Balance disorder/frequent falls- Multifactorial: Deconditioning, medication related, diabetic peripheral neuropathy, hyponatremia, others This patient is cared for by lázaro pham is fairly homebound getting his food from the food bank but does demonstrate over the last few weeks [employer] inability to care for himself Presented with hyponatremia with a level 124 which was corrected as below Also place patient on thiamine empirically and continued at discharge given chronic balance disorder and hyponatremia with normal B12 and folate and TSH Initially PT and OT evaluations with recommendation for SNF rehab however patient was denied and given his psychiatric disorders the patient was deemed a TARGET in office of aging required paperwork for approval [facility]. Accepted today and transportation arranged. (2) Hyponatremia: CAT scan head negative on admission Sodium 124 on admission labs suggestive of excessive fluid intake/psychogenic polydipsia patient with schizophrenia and bipolar on medications along with reported drinking a half a case of diet Pepsi daily Patient was placed on a fluid restriction which was eventually increased to 2000 cc daily along with continuing Lasix 40 mg daily (which will be held tomorrow and resumed on 03/04 for some mild dehydration) Losartan which was initially 25 mg daily had been increased to 50 mg daily however blood pressures were on the lower side and this was decreased back to 25 mg daily and blood pressure remained stable Decrease in losartan and loosening of fluid restriction with repeat sodium 136 prior to discharge Lengthy discussion with patient regarding fluid restriction and if he does continue to drink diet Pepsi that that will be included in his fluid restriction and should be cognizant that any extra diet Pepsi will limit the amount of water as well. Noted that diet Pepsi also has more sodium than regular Pepsi as well and should cut back on diet Pepsi in general This patient going to SNF long placement should be easier to monitor and enforce fluid restriction (3) Diabetic peripheral neuropathy: Last A1c 6.27 Nov 2020 Decided Metformin were held while inpatient patient was placed on sliding scale insulin Metformin and glipizide were both resumed prior to discharge and sugars had remained stable consistently (4) Schizophrenia: Along with bipolar I Continued usual medications with olanzapine 10 mg in the morning and 15 mg at night, divalproex 750 mg twice daily, paroxetine 10 mg daily Stable and without concern Target as above for SNF placement (5) Bipolar I disorder, single manic episode: Continued usual medications as above (6) Dyslipidemia: Reported in history of been on no specific treatment (7) HTN (hypertension): Hypertension/atrial bigeminy/atrial trigeminy- Blood pressure stable on usual 25 mg dose. Had previously been increased to 50 mg daily and patient's blood pressures low normal with dehydration and given continued fluid restriction at discharge continued his 25 mg dose Continue monitoring at SNF and if remains elevated could consider additional half tablet if needed Also continued on his Lasix 40 mg daily however patient was told to hold this for tomorrow and resume on 03/04 as above for some minimal dehydration (8) Atrial bigeminy: See above (9) Frequent falls: Multifactorial as above. PT and OT consult as above and patient was arranged to be a long-term resident center DVT prophylaxis was used with SCDs and heparin subcu while inpatient along with frequent ambulation Arrange made to [facility] this afternoon Total Time Total Time Spent Total Time Spent (In Minutes): 60 Discharge Plan Discharge Items Patient Disposition: Transfer Custodial Fac Reason For Visit: HYPONATREMIA,FREQUENT FALLS Discharge Diagnosis: Hyponatremia, Gait Disturbance Goals: You have been hospitalized for an acute medical problem. During your stay at [facility], we have made an effort to correct the problem that brought you to the hospital while keeping you as comfortable as possible. Medications were used to bring your condition under control and your discharge instructions will include directions for any medications you should take after leaving the hospital. Please make sure you see your Primary Care Provider as part of your follow up plan. Activity: As commented below Activity Comment: advance with therapy Non-emergency contact: Primary Care Provider Call non-emergency contact if: you have any medication questions, your symptoms worsen and your pain is not controlled Follow-up/Referrals: Pro,Roly Laboy MD [Primary Care Provider] - Diet: Carb Consistent or DM2 and Heart Healthy Fluids: 2000ml (8 cups) Addtl Attending Provider Instructions: He has been hospitalized for recurrent falls. Your sodium was found to be extremely low and labs were obtained which showed that this was likely to large amounts of fluid intake possibly related to her psychiatric medication. Sodium has normalized with fluid restriction and you should continue with a 2000 cc/day restriction to prevent worsening hyponatremia and falls. You were evaluated by therapy and case management arrange for rehab at discharge to improve her strength. You were slightly dehydrated on the day of discharge and is recommended that you hold your Lasix for tomorrow and resume on 03/04. You should have repeat chemistries in the next 2 to 3 days to ensure that your sodium is stable on repeat. Please follow-up with your primary care provider in the next 1 to 2 weeks to monitor your progress after hospitalization. Please return to the emergency department with any fever, chills, chest pain, shortness of breath or any other symptoms that are concerning for you. It has been a pleasure being a part of the medical team providing for you while you been in the hospital. Take care! Pending Studies at Discharge: No Stand-Alone Forms: My [employer], Smoking Cessation Skilled Items Patient informed of condition?: Yes DNR: No Discharge Level of Care: Skilled Communicable Disease: No Discharge Prognosis: Stable Lines: None Urinary Catheter: No Medications and DC Order Prescriptions: New thiamine HCl (vitamin B1) [Vitamin B-1] 100 mg Tablet 100 mg PO QAM Qty: 30 RF: 0 Continued (DME) lancets [OneTouch Delica Lancets] 33 gauge misc See Rx Instructions .ROUTE .MEDSUPPLY Qty: 100 RF: 3 (DME) OneTouch Verio test strips Strip See Rx Instructions .ROUTE .MEDSUPPLY Qty: 100 RF: 3 divalproex 250 mg tablet extended release 24 hr 250 mg PO BID Qty: 60 RF: 0 divalproex 500 mg tablet extended release 24 hr 500 mg PO BID Qty: 60 RF: 0 olanzapine 10 mg tablet 10 mg PO QAM Qty: 30 RF: 0 olanzapine 15 mg tablet 15 mg PO HS Qty: 30 RF: 0 paroxetine HCl 10 mg tablet 10 mg PO QAM Qty: 30 RF: 0 metformin 1,000 mg tablet 1,000 mg PO BID Qty: 180 RF: 3 albuterol sulfate [ProAir HFA] 90 mcg/actuation HFA aerosol inhaler 2 puff INH Q6H PRN (Reason: Shortness Of Breath) Qty: 18 RF: 2 cyanocobalamin (vitamin B-12) 1,000 mcg tablet 1,000 mcg PO QAM Qty: 30 RF: 11 glipizide 5 mg tablet 5 mg PO BID 90 Days Qty: 60 RF: 11 losartan 25 mg tablet 25 mg PO DAILY Qty: 90 RF: 3 furosemide [Lasix] 40 mg tablet 40 mg PO DAILY Qty: 30 RF: 2 aspirin 81 mg tablet,delayed release (DR/EC) 81 mg PO QAM Qty: 90 RF: 1 meloxicam 7.5 mg tablet 7.5 mg PO BID Qty: 60 RF: 5 cholecalciferol (vitamin D3) 25 mcg (1,000 unit) capsule 1,000 unit PO QAM Qty: 90 RF: 1 Incruse Ellipta 62.5 mcg/actuation blister with device 1 inh inhalation DAILY Qty: 30 RF: 2 Equate Extra strength pain relieving cream 1 applic topical UD RF: 0 (DME) lancets [OneTouch Delica Lancets] 33 gauge misc See Dose Instructions .ROUTE .MEDSUPPLY Qty: 100 RF: 0 vitamin B complex [B Complex-Vitamin B12] tablet 1 tab PO QAM RF: 0 Discharge Orders: Discharge Order (Routine); Ordered 03/02/21 Ordered By: Tran Springer Admission Data Admit Date/Time: 02/17/21 02:14 Attending Provider: Kristie Ricketts Admit Provider: Roc Liang Primary Care Provider: Roly Mariscal Other Providers: Matthias Holliday ; [facility] ; [facility] ; [facility] ; Roc Liang Other Interventions: Discharge Summary Assessment (RN) Last Done: 03/02/21 13:26 Supervising Physician Co-Signing Physician Notes PA Supervision Note: I personally saw and examined the patient. I verified all guzman points and agree with MARY Springer with the following exceptions and/or additions: S-patient feeling well. No complaints O- Vitals reviewed Gen: AAOx3, NAD HEENT: Anicteric sclerae, EOMI CV: RRR no mgr nl S1S2 Pulm: CTAB no wcr Abd: +BS soft NT ND no masses or hernias Ext: No edema, 2+ DP pulses Skin: No rashes, warm/dry Neuro: Full strength throughout [id number]-old male here with hyponatremia and weakness, improved, stable for discharge Coding Level of Care Code D/C DAY MANAGEMENT >30 MINS Diagnoses Balance disorder R26.89 Hyponatremia E87.1 Diabetic peripheral neuropathy E11.42 Schizophrenia F20.9 Bipolar I disorder, single manic episode F30.9 Dyslipidemia E78.5 HTN (hypertension) I10 Atrial bigeminy I49.8 Frequent falls R29.6
== END 2021-03-02 15:08 | DRG 641 ==
LOC: ED 23:33 → 2N 02-17 02:14 → SUATTDRO 02-17 02:14 → 2N 02-17 03:02 → 3E 02-22 06:33